=== PATIENT | female | born 1945 | race Caucasian/White ===

== ENCOUNTER 2017-02-24 18:42 | Emergency (ER) | payer OTHER, MEDICAID ==
[~2017-02-24] VITALS: Ht 154.9 cm; Wt 90.7 kg
[~2017-02-24 18:42] MED LIST: ASPI81TA45 PO; COUM7.5T PO; CRES10TA32 PO; JANU50TA4 PO; LOSA25TA8 PO; TYLE325T5 PO; ULTR37.52 PO
[2017-02-24] MEDS ORDERED: GABA-282 PO (18:53)
[2017-02-24] MEDS ORDERED: ELIQ5TAB PO (18:53)
[2017-02-24] MEDS ORDERED: PREG50CA PO (18:53)
[2017-02-24] MEDS ORDERED: ACETAMINOPHEN TAB 650MG DOSE (2X325MG) PO ONE (19:15)
[2017-02-24] MEDS ORDERED: NORCOTAB PO (20:26)
[2017-02-24] MEDS ORDERED: NORCO 5/325MG TABLET (BULK FOR ED) PO ONE (20:30)
[2017-02-24 20:33] VITALS: BP 183/85
--- NOTE | 2017-02-25 07:44 | REP ---
Clinical: Trauma. Technique: Frontal view of the chest with multiple views of the left hemithorax. Findings: Frontal view of the chest demonstrates no acute cardiopulmonary process. Multiple views of the left hemithorax demonstrates no obvious acute rib fracture or pathology. Impression: No definite acute rib fracture. No acute cardiopulmonary process. Signed by Chuy Locke MD 02/25/2017 07:36 A
--- NOTE | 2017-02-25 07:50 | REP ---
Clinical: Trauma. Technique: AP, lateral, bilateral oblique views of the left hand. Findings: Evaluation is significantly limited by age-related osteopenia and arthritic degenerative changes primarily involving the wrist and associated carpometacarpal joints. Soft tissue swelling at the wrist is appreciated and there is evidence for an acute fracture involving the radial styloid process. Fracture is most evident on image 3 of 4. Other more subtle acute injuries cannot be excluded. Impression: Fracture of the distal radius involving the radial styloid process with overlying soft tissue swelling. Further evaluation is limited due to advanced osteopenia and osteoarthritic degenerative changes. Signed by Chuy Locke MD 02/25/2017 07:41 A
--- NOTE | 2017-02-25 07:52 | REP ---
Clinical: Trauma. Technique: AP, lateral, bilateral oblique views of the left wrist. Findings: Soft tissue swelling surrounding the wrist is appreciated and evaluation for subtle trauma is limited due to extensive osteopenia and osteoarthritic degenerative changes. There is a fracture along the anterolateral margin of the distal radius extending to the radial styloid process which is best identified on image 3 of 4. Possible nondisplaced fracture involving the scaphoid bone cannot be excluded. Impression: Soft-tissue swelling. Fracture involving the anterolateral aspect of the distal radius extending to the radial styloid process best identified on image 3 of 4. Possible nondisplaced scaphoid fracture. Further evaluation is limited by osteopenia and arthritic changes. Signed by Chuy Locke MD 02/25/2017 07:44 A
== END 2017-02-24 20:37 | disposition home or self-care (01) ==
LOC: M ED 19:24
DX: S52.515A Nondisplaced fracture of left radial styloid process, initial encounter for closed fracture (principal); S20.219A Contusion of unspecified front wall of thorax, initial encounter; W01.198A Fall on same level from slipping, tripping and stumbling with subsequent striking against other object, initial encounter; Y92.410 Unspecified street and highway as the place of occurrence of the external cause; Y93.01 Activity, walking, marching and hiking; Y99.9 Unspecified external cause status

== ENCOUNTER → 2017-07-18 | Outpatient (CLI) | payer OTHER, MEDICAID ==
[~2017-07-18] MED LIST changes: +ELIQ5TAB PO; +GABA-282 PO; +NORCOTAB PO; +PREG50CA PO; +PROHANCE 279.3MG/ML 5ML VIAL (A9576) As Ordered ONE; -ULTR37.52 PO; +ULTR37.54 PO
--- NOTE | 2017-07-18 16:41 | REP ---
MR CERVICAL SPINE WITHOUT AND WITH CONTRAST: HISTORY: Neck pain. CONTRAST: ProHance 9 mL. A disc bulge and small right paracentral disc protrusion with associated osteophyte formation are present at the C2-3 level. There is moderate effacement of the thecal sac without spinal cord compression. Bilateral uncinate process and facet hypertrophy are present. These findings produce moderate narrowing of the C2 neural foramina. A disc bugle with associated osteophyte formation is present at the C3-4 level. There are 2 mm of retrolisthesis of C3 on C4. There is moderate spinal cord compression. Bilateral uncinate process and right facet hypertrophy are present. These findings produce severe and moderate narrowing of the right and left C3 neural foramina respectively. The patient is status post C4-5 anterior spinal fusion. Bone graft material is present. Posterior osteophytes are present at the C4-5 level. There is minimal effacement of the thecal sac without spinal cord compression. Bilateral uncinate process and facet hypertrophy are present. These findings produce mild and moderate narrowing of the right and left C4 neural foramina respectively. A disc bulge with associated osteophyte formation is present at the C5-6 level. There is moderate spinal cord compression. Bilateral uncinate process hypertrophy is present. This produces severe narrowing of the C5 neural foramina. A disc bulge with associated osteophyte formation is present at the C6-7 level. There is mild effacement of the thecal sac without spinal cord compression. Bilateral uncinate process and facet hypertrophy are present. These findings produce severe narrowing of the C6 neural foramina. Bilateral facet and right uncinate process hypertrophy are present at the C7-T1 level. These findings produce moderate and mild narrowing of the right and left C7 neural foramina respectively. There is no other disc bulge or herniation. The remaining neural foramina are patent. Small focal areas of increased signal intensity on T2-weighted images are present in the spinal cord at the C3-4 level. The spinal cord is small in size. This represents myelomalacia. The C3-4, C5-6 and C6-7 intervertebral discs are decreased in height consistent with disc degeneration. Normal signal intensity is present in the cervical vertebral bodies. IMPRESSION: 1. The patient is status post C4-5 anterior spinal fusion. 2. There is cervical spondylosis at the C2-3 through C7-T1 levels most significant at the C3-4 and C5-6 levels where there is moderate spinal cord compression. 3. Cervical spinal cord myelomalacia. Signed by Josef Oliveros MD 07/18/2017 04:54 P
--- NOTE | 2017-07-18 17:04 | REP ---
MR LUMBAR SPINE WITHOUT AND WITH CONTRAST: HISTORY: Back pain. CONTRAST: ProHance 9 mL. Decreased signal intensity on T2-weighted images is present in the lumbar intervertebral discs. The discs are decreased in height. These findings are consistent with disc degeneration. Disc bulges are present at T11-12 and T12-L1 levels. There is at least mild effacement of the thecal sac without spinal cord compression. The neural foramina are patent on the sagittal images. A diffuse disc bulge is present at the L1-2 level. There is hypertrophy of the ligamenta flava and posterior articulating facets. These findings produce minimal central canal stenosis. The L1 nerves exit the neural foramina without compression. A diffuse disc bulge is present at the L2-3 level. There is hypertrophy of the ligamenta flava and posterior articulating facets. These findings produce severe central canal stenosis. There is compression of the L2 nerves in the neural foramina. A diffuse disc bulge is present at the L3-4 level. There is hypertrophy of the ligamenta flava and posterior articulating facets. These findings produce minimal central canal stenosis. There is compression of the left L2 nerve in the neural foramen. The right L2 nerve exits the neural foramen without compression. A diffuse disc bulge is present at the L4-5 level. There is hypertrophy of the ligamenta flava and posterior articulating facets. There are 4 mm of retrolisthesis of L4 on 5. These findings produce severe central canal stenosis. There is compression of the L4 nerves in the neural foramina. A diffuse disc bulge and small central disc protrusion are present at the L5-S1 level. There is hypertrophy of the ligamenta flava and posterior articulating facets. These findings produce moderate central canal stenosis. There is compression of the L5 nerves in the neural foramina. The conus medullaris is normal in appearance terminating at the level of the T12-L1 intervertebral disc. Increased signal intensity on T2-weighted images is present in the end plates of the L2 and 3 vertebral bodies. There is minimal heterogenous enhancement with contrast. There is minimal enhancement adjacent to the L2-3 facets. This represents degenerative change. IMPRESSION: 1. Minimal central canal stenosis at the L1-2 and L3-4 levels secondary to disc bulge, ligamentous, and facet hypertrophy. 2. Severe central canal stenosis at the L2-3 level secondary to disc bulge, ligamentous and facet hypertrophy. 3. Severe central canal stenosis at the L4-5 level secondary to disc bulge, ligamentous, and facet hypertrophy and retrolisthesis. 4. Moderate central canal stenosis at the L5-S1 level secondary to disc bulge, disc protrusion, ligamentous, and facet hypertrophy. Signed by Josef Oliveros MD 07/18/2017 05:11 P
== END ==
LOC: M RAD 12:33
PROVIDERS: ATTEND Physician Assistant
DX: M54.5 Low back pain (principal); M54.2 Cervicalgia
CPT/HCPCS: 72156; 72158; A9576

== ENCOUNTER 2018-01-01 15:15 | Inpatient (IN) | payer OTHER, MEDICAID ==
[~2018-01-01 15:15] MED LIST changes: -ASPI81TA45 PO; +BISACODYL 10 MG SUPP PR; +BISACODYL 5 MG TAB PO; -COUM7.5T PO; -CRES10TA32 PO; +DEXTROSE 50% 50 ML SYRINGE IV; -ELIQ5TAB PO; -GABA-282 PO; +GLUCAGON FOR INJ 1 MG VIAL (J1610) SC; +GLUCOSE 4 GM CHEW TABLET PO; -JANU50TA4 PO; -LOSA25TA8 PO; -NORCOTAB PO; +ONDANSETRON 4 MG TAB (S0181) PO; -PREG50CA PO; -PROHANCE 279.3MG/ML 5ML VIAL (A9576) As Ordered ONE; -TYLE325T5 PO; -ULTR37.54 PO
[2018-01-01 16:50] LABS: BEDSIDE GLUCOSE 160 MG/DL (83-110)
[2018-01-01] MEDS: HumaLOG INSULIN (NovoLOG) PER UNIT SC ×2 (17:25→21:00)
[2018-01-01] MEDS: metFORMIN (GLUCOPHAGE) 500 MG TAB PO (17:25)
[2018-01-01] MEDS: ACETAMINOPHEN TAB 650MG DOSE (2X325MG) PO (18:28)
[2018-01-01] MEDS: PREGABALIN 50 MG CAP (LYRICA) PO (20:19)
[2018-01-01] MEDS: GABAPENTIN 300 MG CAP PO (20:19)
[2018-01-01] MEDS: SITagliptin 50 MG TAB (JANUVIA) PO (20:19)
[2018-01-01] MEDS: APIXABAN 2.5 MG TAB (ELIQUIS) PO (20:19)
[2018-01-01] MEDS: NORCO, ANEXSIA 5/325MG TABLET (HYDROcodone/ACETAMINOPHEN) PO (20:19)
[2018-01-01] MEDS: DOCUSATE SODIUM 100 MG CAP PO (21:00)
[2018-01-01 21:06] LABS: BEDSIDE GLUCOSE 232 MG/DL (83-110)
[2018-01-02] MEDS: ACETAMINOPHEN TAB 650MG DOSE (2X325MG) PO (05:12)
[2018-01-02 06:50] LABS: BASO % 0.1 % (0.0-1.0); EOS # 0.3 10^3/uL (0.0-0.50); HEMATOCRIT 28.1 % (36.0-47.0); HEMOGLOBIN 9.2 g/dl (12.0-16.0); IMMATURE GRANULOCYTE % 0.3 % (0-3.0); LYMPH # 1.7 10^3/uL (1.5-4.5); LYMPH % 18.3 % (24.0-44.0); MEAN CORPUSCULAR HEMOGLOBIN 31.5 pg (27.0-33.0); MEAN CORPUSCULAR HGB CONC 32.7 g/dl (32.0-36.5); MEAN CORPUSCULAR VOLUME 96.2 fl (80.0-96.0); MONO # 0.9 10^3/uL (0.0-0.8); MONO % 9.4 % (0.0-5.0); NEUTROPHILS # 6.4 10^3/uL (1.8-7.7); NEUTROPHILS % 68.9 % (36.0-66.0); PLATELET COUNT, AUTOMATED 268 10^3/uL (150-450); RED BLOOD COUNT 2.92 10^6/uL (4.00-5.40); RED CELL DISTRIBUTION WIDTH 12.5 % (11.5-14.5); WHITE BLOOD COUNT 9.3 10^3/uL (4.0-10.0)
[2018-01-02 07:17] LABS: ALBUMIN 2.6 GM/DL (3.2-5.2); ALBUMIN/GLOBULIN RATIO 0.59 (1.00-1.93); ALKALINE PHOSPHATASE 117 U/L (45-117); ALT/SGPT 32 U/L (12-78); ANION GAP 7 MEQ/L (8-16); AST/SGOT 33 U/L (7-37); BILIRUBIN,TOTAL 0.6 MG/DL (0.2-1.0); BLOOD UREA NITROGEN 18 MG/DL (7-18); CALCIUM LEVEL 8.9 MG/DL (8.8-10.2); CARBON DIOXIDE LEVEL 27 MEQ/L (21-32); CHLORIDE LEVEL 103 MEQ/L (98-107); CREATININE FOR GFR 0.89 MG/DL (0.55-1.30); GLOMERULAR FILTRATION RATE > 60.0 (>39); GLUCOSE, FASTING 163 MG/DL (70-100); POTASSIUM SERUM 4.1 MEQ/L (3.5-5.1); SODIUM LEVEL 137 MEQ/L (136-145)
[2018-01-02] MEDS: SITagliptin 50 MG TAB (JANUVIA) PO ×2 (08:33→20:58)
[2018-01-02] MEDS: GABAPENTIN 300 MG CAP PO ×2 (08:33→20:58)
[2018-01-02] MEDS: HumaLOG INSULIN (NovoLOG) PER UNIT SC ×4 (08:33→20:59)
[2018-01-02] MEDS: PREGABALIN 50 MG CAP (LYRICA) PO ×2 (08:33→20:58)
[2018-01-02] MEDS: ROSUVASTATIN 10 MG TAB (CRESTOR) PO (08:33)
[2018-01-02] MEDS: MULTIVITAMINS/MINERALS THERAP 1 TAB PO (08:33)
[2018-01-02] MEDS: metFORMIN (GLUCOPHAGE) 500 MG TAB PO ×2 (08:34→17:59)
[2018-01-02] MEDS: LOSARTAN 25 MG TAB PO ×2 (08:34→20:59)
[2018-01-02] MEDS: DOCUSATE SODIUM 100 MG CAP PO ×2 (08:34→20:58)
[2018-01-02] MEDS: MIRALAX *UNIT DOSE* 17GM PACKET PO (08:34)
[2018-01-02] MEDS: APIXABAN 2.5 MG TAB (ELIQUIS) PO ×2 (08:34→20:59)
[2018-01-02] MEDS: NORCO, ANEXSIA 5/325MG TABLET (HYDROcodone/ACETAMINOPHEN) PO ×2 (11:15→17:59)
[2018-01-02 11:57] LABS: BEDSIDE GLUCOSE 122 MG/DL (83-110)
[2018-01-02 17:20] LABS: BEDSIDE GLUCOSE 165 MG/DL (83-110)
[2018-01-02 20:58] LABS: BEDSIDE GLUCOSE 201 MG/DL (83-110)
[2018-01-03] MEDS: NORCO, ANEXSIA 5/325MG TABLET (HYDROcodone/ACETAMINOPHEN) PO ×3 (02:00→21:41)
[2018-01-03 06:24] LABS: BEDSIDE GLUCOSE 169 MG/DL (83-110)
[2018-01-03] MEDS: MIRALAX *UNIT DOSE* 17GM PACKET PO (08:19)
[2018-01-03] MEDS: HumaLOG INSULIN (NovoLOG) PER UNIT SC ×4 (08:19→20:06)
[2018-01-03] MEDS: MULTIVITAMINS/MINERALS THERAP 1 TAB PO (08:19)
[2018-01-03] MEDS: GABAPENTIN 300 MG CAP PO ×2 (08:19→20:06)
[2018-01-03] MEDS: PREGABALIN 50 MG CAP (LYRICA) PO ×2 (08:19→20:06)
[2018-01-03] MEDS: SITagliptin 50 MG TAB (JANUVIA) PO ×2 (08:19→20:05)
[2018-01-03] MEDS: LOSARTAN 25 MG TAB PO ×2 (08:19→20:05)
[2018-01-03] MEDS: metFORMIN (GLUCOPHAGE) 500 MG TAB PO ×2 (08:19→17:47)
[2018-01-03] MEDS: APIXABAN 2.5 MG TAB (ELIQUIS) PO ×2 (08:19→20:05)
[2018-01-03] MEDS: ROSUVASTATIN 10 MG TAB (CRESTOR) PO (08:19)
[2018-01-03] MEDS: DOCUSATE SODIUM 100 MG CAP PO ×2 (08:20→20:08)
[2018-01-03] MEDS: glipiZIDE (GLUCOTROL) 5 MG TAB PO (10:28)
[2018-01-03 12:10] LABS: BEDSIDE GLUCOSE 171 MG/DL (83-110)
[2018-01-03 16:24] LABS: BEDSIDE GLUCOSE 72 MG/DL (83-110)
[2018-01-03 20:17] LABS: BEDSIDE GLUCOSE 118 MG/DL (83-110)
[2018-01-04] MEDS: NORCO, ANEXSIA 5/325MG TABLET (HYDROcodone/ACETAMINOPHEN) PO ×3 (06:26→20:34)
[2018-01-04 06:50] LABS: BEDSIDE GLUCOSE 167 MG/DL (83-110)
[2018-01-04] MEDS: DOCUSATE SODIUM 100 MG CAP PO (07:04)
[2018-01-04] MEDS: MIRALAX *UNIT DOSE* 17GM PACKET PO (07:04)
[2018-01-04] MEDS: PREGABALIN 50 MG CAP (LYRICA) PO ×2 (08:13→20:32)
[2018-01-04] MEDS: SITagliptin 50 MG TAB (JANUVIA) PO ×2 (08:13→20:33)
[2018-01-04] MEDS: APIXABAN 2.5 MG TAB (ELIQUIS) PO ×2 (08:13→20:33)
[2018-01-04] MEDS: ROSUVASTATIN 10 MG TAB (CRESTOR) PO (08:13)
[2018-01-04] MEDS: HumaLOG INSULIN (NovoLOG) PER UNIT SC ×4 (08:13→20:34)
[2018-01-04] MEDS: GABAPENTIN 300 MG CAP PO ×2 (08:13→20:34)
[2018-01-04] MEDS: glipiZIDE (GLUCOTROL) 5 MG TAB PO (08:14)
[2018-01-04] MEDS: LOSARTAN 25 MG TAB PO ×2 (08:14→20:33)
[2018-01-04] MEDS: metFORMIN (GLUCOPHAGE) 500 MG TAB PO ×2 (08:14→17:47)
[2018-01-04] MEDS: MULTIVITAMINS/MINERALS THERAP 1 TAB PO (08:14)
[2018-01-04 12:19] LABS: BEDSIDE GLUCOSE 91 MG/DL (83-110)
[2018-01-04] MEDS: METAMUCIL (PSYLLIUM) PACKET PO (12:19)
[2018-01-04 16:41] LABS: BEDSIDE GLUCOSE 92 MG/DL (83-110)
[2018-01-04 20:21] LABS: BEDSIDE GLUCOSE 118 MG/DL (83-110)
[2018-01-05 05:53] LABS: BEDSIDE GLUCOSE 129 MG/DL (83-110)
[2018-01-05] MEDS: GABAPENTIN 300 MG CAP PO ×2 (08:55→21:04)
[2018-01-05] MEDS: ROSUVASTATIN 10 MG TAB (CRESTOR) PO (08:55)
[2018-01-05] MEDS: metFORMIN (GLUCOPHAGE) 500 MG TAB PO ×2 (08:55→17:44)
[2018-01-05] MEDS: SITagliptin 50 MG TAB (JANUVIA) PO ×2 (08:55→21:04)
[2018-01-05] MEDS: MULTIVITAMINS/MINERALS THERAP 1 TAB PO (08:55)
[2018-01-05] MEDS: glipiZIDE (GLUCOTROL) 5 MG TAB PO (08:55)
[2018-01-05] MEDS: APIXABAN 2.5 MG TAB (ELIQUIS) PO ×2 (08:56→21:04)
[2018-01-05] MEDS: PREGABALIN 50 MG CAP (LYRICA) PO ×2 (08:56→21:04)
[2018-01-05] MEDS: ACETAMINOPHEN TAB 650MG DOSE (2X325MG) PO ×2 (08:56→17:44)
[2018-01-05] MEDS: LOSARTAN 50 MG TAB PO (08:57)
[2018-01-05] MEDS: HumaLOG INSULIN (NovoLOG) PER UNIT SC ×4 (08:57→21:00)
[2018-01-05] MEDS: METAMUCIL (PSYLLIUM) PACKET PO (08:57)
[2018-01-05 11:33] LABS: BEDSIDE GLUCOSE 166 MG/DL (83-110)
[2018-01-05] MEDS: DICLOFENAC EPOLAMINE 1.3 % PATCH TOP ×2 (12:11→21:08)
[2018-01-05 16:38] LABS: BEDSIDE GLUCOSE 103 MG/DL (83-110)
[2018-01-05 20:54] LABS: BEDSIDE GLUCOSE 190 MG/DL (83-110)
[2018-01-05] MEDS: LOSARTAN 25 MG TAB PO (21:07)
[2018-01-05] MEDS: NORCO, ANEXSIA 5/325MG TABLET (HYDROcodone/ACETAMINOPHEN) PO (21:11)
[2018-01-06] MEDS: ACETAMINOPHEN TAB 650MG DOSE (2X325MG) PO (00:47)
[2018-01-06 06:51] LABS: BEDSIDE GLUCOSE 135 MG/DL (83-110)
[2018-01-06] MEDS: GABAPENTIN 300 MG CAP PO ×2 (08:06→20:05)
[2018-01-06] MEDS: SITagliptin 50 MG TAB (JANUVIA) PO ×2 (08:06→20:05)
[2018-01-06] MEDS: ROSUVASTATIN 10 MG TAB (CRESTOR) PO (08:06)
[2018-01-06] MEDS: LOSARTAN 50 MG TAB PO (08:07)
[2018-01-06] MEDS: PREGABALIN 50 MG CAP (LYRICA) PO ×2 (08:07→20:05)
[2018-01-06] MEDS: glipiZIDE (GLUCOTROL) 5 MG TAB PO (08:07)
[2018-01-06] MEDS: HumaLOG INSULIN (NovoLOG) PER UNIT SC ×4 (08:07→21:00)
[2018-01-06] MEDS: MULTIVITAMINS/MINERALS THERAP 1 TAB PO (08:07)
[2018-01-06] MEDS: metFORMIN (GLUCOPHAGE) 500 MG TAB PO ×2 (08:07→17:46)
[2018-01-06] MEDS: METAMUCIL (PSYLLIUM) PACKET PO (08:08)
[2018-01-06] MEDS: APIXABAN 2.5 MG TAB (ELIQUIS) PO ×2 (08:08→20:05)
[2018-01-06] MEDS: DICLOFENAC EPOLAMINE 1.3 % PATCH TOP ×2 (08:08→20:06)
[2018-01-06 12:32] LABS: BEDSIDE GLUCOSE 68 MG/DL (83-110)
[2018-01-06] MEDS: NORCO, ANEXSIA 5/325MG TABLET (HYDROcodone/ACETAMINOPHEN) PO ×2 (13:06→20:05)
[2018-01-06 16:38] LABS: BEDSIDE GLUCOSE 93 MG/DL (83-110)
[2018-01-06] MEDS: LOSARTAN 25 MG TAB PO (20:05)
[2018-01-06 20:36] LABS: BEDSIDE GLUCOSE 141 MG/DL (83-110)
[2018-01-07] MEDS: NORCO, ANEXSIA 5/325MG TABLET (HYDROcodone/ACETAMINOPHEN) PO ×4 (02:13→22:40)
[2018-01-07 06:58] LABS: BEDSIDE GLUCOSE 118 MG/DL (83-110)
[2018-01-07] MEDS: glipiZIDE (GLUCOTROL) 5 MG TAB PO (07:43)
[2018-01-07] MEDS: HumaLOG INSULIN (NovoLOG) PER UNIT SC ×4 (07:43→20:14)
[2018-01-07] MEDS: ROSUVASTATIN 10 MG TAB (CRESTOR) PO (08:15)
[2018-01-07] MEDS: GABAPENTIN 300 MG CAP PO ×2 (08:16→20:14)
[2018-01-07] MEDS: SITagliptin 50 MG TAB (JANUVIA) PO ×2 (08:16→20:14)
[2018-01-07] MEDS: metFORMIN (GLUCOPHAGE) 500 MG TAB PO ×2 (08:16→17:58)
[2018-01-07] MEDS: LOSARTAN 50 MG TAB PO (08:16)
[2018-01-07] MEDS: PREGABALIN 50 MG CAP (LYRICA) PO ×2 (08:16→20:14)
[2018-01-07] MEDS: MULTIVITAMINS/MINERALS THERAP 1 TAB PO (08:16)
[2018-01-07] MEDS: APIXABAN 2.5 MG TAB (ELIQUIS) PO ×2 (08:16→20:14)
[2018-01-07] MEDS: METAMUCIL (PSYLLIUM) PACKET PO (08:17)
[2018-01-07] MEDS: DICLOFENAC EPOLAMINE 1.3 % PATCH TOP ×2 (08:17→20:16)
[2018-01-07 11:27] LABS: BEDSIDE GLUCOSE 133 MG/DL (83-110)
[2018-01-07 12:53] LABS: BEDSIDE GLUCOSE 66 MG/DL (83-110)
[2018-01-07 13:02] LABS: BEDSIDE GLUCOSE 86 MG/DL (83-110)
[2018-01-07 17:23] LABS: BEDSIDE GLUCOSE 95 MG/DL (83-110)
[2018-01-07 20:05] LABS: BEDSIDE GLUCOSE 201 MG/DL (83-110)
[2018-01-07] MEDS: LOSARTAN 25 MG TAB PO (20:13)
[2018-01-07] MEDS: ACETAMINOPHEN TAB 650MG DOSE (2X325MG) PO (20:17)
[2018-01-08] MEDS: NORCO, ANEXSIA 5/325MG TABLET (HYDROcodone/ACETAMINOPHEN) PO (04:19)
[2018-01-08 06:33] LABS: BEDSIDE GLUCOSE 147 MG/DL (83-110)
[2018-01-08] MEDS: MULTIVITAMINS/MINERALS THERAP 1 TAB PO (08:15)
[2018-01-08] MEDS: LOSARTAN 50 MG TAB PO (08:16)
[2018-01-08] MEDS: PREGABALIN 50 MG CAP (LYRICA) PO (08:16)
[2018-01-08] MEDS: SITagliptin 50 MG TAB (JANUVIA) PO (08:16)
[2018-01-08] MEDS: metFORMIN (GLUCOPHAGE) 500 MG TAB PO (08:16)
[2018-01-08] MEDS: HumaLOG INSULIN (NovoLOG) PER UNIT SC (08:16)
[2018-01-08] MEDS: glipiZIDE (GLUCOTROL) 5 MG TAB PO (08:17)
[2018-01-08] MEDS: GABAPENTIN 300 MG CAP PO (08:17)
[2018-01-08] MEDS: METAMUCIL (PSYLLIUM) PACKET PO (08:17)
[2018-01-08] MEDS: ROSUVASTATIN 10 MG TAB (CRESTOR) PO (08:17)
[2018-01-08] MEDS: APIXABAN 2.5 MG TAB (ELIQUIS) PO (08:17)
== END 2018-01-08 11:00 | disposition home health service (06) | DRG 53 ==
LOC: M PM&R 15:15
PROVIDERS: Physical Medicine & Rehabilitation
DX: G82.54 Quadriplegia, C5-C7 incomplete (principal); E11.9 Type 2 diabetes mellitus without complications; I10 Essential (primary) hypertension; E66.01 Morbid (severe) obesity due to excess calories; M19.90 Unspecified osteoarthritis, unspecified site; I45.10 Unspecified right bundle-branch block; E78.5 Hyperlipidemia, unspecified; Z96.641 Presence of right artificial hip joint; Z79.01 Long term (current) use of anticoagulants; Z79.899 Other long term (current) drug therapy; Z79.4 Long term (current) use of insulin; Z86.73 Personal history of transient ischemic attack (TIA), and cerebral infarction without residual deficits; Z98.49 Cataract extraction status, unspecified eye; Z87.891 Personal history of nicotine dependence; Z98.890 Other specified postprocedural states

== ENCOUNTER 2018-03-07 06:50 | Day surgery (SDC) | payer OTHER, MEDICAID ==
[~2018-03-07 06:50] MED LIST changes: -BISACODYL 10 MG SUPP PR; -BISACODYL 5 MG TAB PO; -DEXTROSE 50% 50 ML SYRINGE IV; -GLUCAGON FOR INJ 1 MG VIAL (J1610) SC; -GLUCOSE 4 GM CHEW TABLET PO; -ONDANSETRON 4 MG TAB (S0181) PO; +SLF 3 ML SYR IV
[2018-03-07] MEDS ORDERED: fentaNYL 100 MCG/2 ML INJECTION (J3010) As Ordered ×2 (06:58)
[2018-03-07] MEDS: LIDOCAINE 3.5 % 1ML OPHTH TOPICAL GEL OU ×2 (07:18)
[2018-03-07 07:27] LABS: BEDSIDE GLUCOSE 187 MG/DL (83-110)
[2018-03-07] MEDS ORDERED: PROPOFOL 200 MG/20 ML VIAL As Ordered ×2 (08:55)
[2018-03-07] MEDS: LIDOCAINE 2% W/EPIN INJ 20ML **PRES FREE As Ordered ×2 (09:08)
[2018-03-07] MEDS: TOBRADEX OPHTH OINT 3.5 GM As Ordered ×2 (09:09)
[2018-03-07] MEDS: POVIDONE-IODINE 5% OPHTH PREP SOL 30ML As Ordered ×2 (09:09)
== END 2018-03-07 10:12 | disposition home or self-care (01) ==
LOC: M SDC 06:50
DX: H02.005 Unspecified entropion of left lower eyelid (principal); I10 Essential (primary) hypertension; E78.00 Pure hypercholesterolemia, unspecified; E11.9 Type 2 diabetes mellitus without complications; Z86.73 Personal history of transient ischemic attack (TIA), and cerebral infarction without residual deficits; Z79.02 Long term (current) use of antithrombotics/antiplatelets; Z79.899 Other long term (current) drug therapy
CPT/HCPCS: 67914; 67924

== ENCOUNTER 2018-12-02 14:42 | Emergency (ER) | payer MEDICARE, MEDICAID ==
[~2018-12-02] VITALS: Ht 154.9 cm; Wt 100.9 kg
[~2018-12-02 14:42] MED LIST changes: +ASPI81TA45 PO; +COLA100C5 PO; +COUM7.5T PO; +CRES10TA32 PO; +ELIQ5TAB PO; +GABA-843 PO; +GLIP5TAB8 PO; +HYDR-3713 PO; +INSUHUMDS SC; +IRBE75TA5 PO; +JANU50TA22 PO; +JANU50TA4 PO; +LOSA25TA14 PO; +LOSA50TA88 PO; +METAPKT PO; +MIRA33504 PO; +NORCOTAB PO; +ONDA4TAB5 PO; +PREG50CA PO; +SENN1TAB10 PO; -SLF 3 ML SYR IV; +TYLE325T5 PO; +ULTR37.54 PO
[2018-12-02] MEDS ORDERED: TIZANIDINE PO (15:00)
[2018-12-02] MEDS ORDERED: ROPI3TAB3 (15:00)
[2018-12-02 15:12] LABS: BASO # 0.1 10^3/uL (0.0-0.2); BASO % 0.6 % (0.0-1.0); EOS # 0.2 10^3/uL (0.0-0.50); EOS % 2.5 % (0.0-3.0); HEMATOCRIT 33.7 % (36.0-47.0); HEMOGLOBIN 10.1 g/dl (12.0-15.5); LYMPH # 2.9 10^3/uL (1.5-4.5); LYMPH % 33.8 % (24.0-44.0); MEAN CORPUSCULAR HEMOGLOBIN 24.9 pg (27.0-33.0); MONO # 0.5 10^3/uL (0.0-0.8); MONO % 5.2 % (0.0-5.0); NEUTROPHILS % 57.6 % (36.0-66.0); PLATELET COUNT, AUTOMATED 297 10^3/uL (150-450); RED BLOOD COUNT 4.06 10^6/uL (4.00-5.40); WHITE BLOOD COUNT 8.6 10^3/uL (4.0-10.0)
[2018-12-02] MEDS ORDERED: NS 1,000 ML IV SCH (15:15)
[2018-12-02 15:23] LABS: INR 1.06; PROTHROMBIN TIME 13.9 SECONDS (12.1-14.4)
[2018-12-02 15:47] LABS: BLOOD UREA NITROGEN 16 MG/DL (7-18); CALCIUM LEVEL 8.8 MG/DL (8.8-10.2); CARBON DIOXIDE LEVEL 25 MEQ/L (21-32); CHLORIDE LEVEL 106 MEQ/L (98-107); CPK CREATINE PHOSPHOKINASE 97 U/L (26-192); CREATININE FOR GFR 0.92 MG/DL (0.55-1.30); GLOMERULAR FILTRATION RATE > 60.0 (>39); GLUCOSE, FASTING 137 MG/DL (70-100); MB/CK RELATIVE INDEX 1.65 (< OR =4); POTASSIUM SERUM 4.4 MEQ/L (3.5-5.1); SODIUM LEVEL 139 MEQ/L (136-145); TROPONIN I 0.02 NG/ML (< 0.10)
--- NOTE | 2018-12-02 15:50 | REP ---
CT of the brain without IV contrast: Comparison is nine 06/04/2016. There is no hemorrhage, edema, mass effect or midline shift. There is an old right temporal parietal infarct. There is an old infarct in the right occipital lobe medially, unchanged. The cortical stripe is otherwise unremarkable. There is no edema, mass effect or midline shift. The visualized paranasal sinuses and mastoid air cells are clear. Impression: There is no hemorrhage, acute infarct or mass. There are old infarcts in the right temporal parietal zone and medially in the right occipital lobe. Electronically Signed by Bo Alves MD 12/02/2018 03:42 P
--- NOTE | 2018-12-02 15:53 | REP ---
PA and lateral chest: Comparison 06/26/2016. The lung sloan are clear. The cardiac size is normal. The balaji, mediastinum, and skeletal structures are unremarkable. Impression: Negative PA and lateral chest. There is no interval change. Electronically Signed by Bo Alves MD 12/02/2018 03:44 P
[2018-12-02] MEDS ORDERED: LABETALOL HCL 100 MG/20 ML VIAL IV STA (15:59)
[2018-12-02 16:18] VITALS: BP 154/70
[2018-12-02] MEDS ORDERED: ZOFR4TAB16 PO (16:52)
[2018-12-02 17:15] VITALS: BP 152/69
--- NOTE | 2018-12-02 17:59 | ECGEPIP ---
Stationary ECG Study [facility] - ED Test Date: 2018-12-02 Pat Name: DAGOBERTO HURLEY Department: Room: - Gender: F Network Strategist: sydnie : 1945 Requested By: MARIO FIGUEROA Order Number: [id number] Reading MD: Elizabeth Silverio Measurements Intervals [place] Rate: 96 P: NC: 0 QRS: -57 QRSD: 156 T: 37 QT: 394 QTc: 499 Interpretive Statements SINUS TACHYCARDIA WITH PREMATURE VENTRICULAR COMPLEXES RIGHT BUNDLE BRANCH BLOCK LEFT ANTERIOR FASCICULAR BLOCK INCREASED RATE 06/26/16 Electronically Signed On 12-02-2018 17:59:13 EST by Elizabeth Silverio
== END 2018-12-02 17:29 | disposition home or self-care (01) ==
LOC: EDBD 14:42 → M ED 14:42
DX: I10 Essential (primary) hypertension (principal); B34.9 Viral infection, unspecified; E11.9 Type 2 diabetes mellitus without complications; G89.29 Other chronic pain; Z79.899 Other long term (current) drug therapy; Z79.84 Long term (current) use of oral hypoglycemic drugs; Z79.01 Long term (current) use of anticoagulants; F17.210 Nicotine dependence, cigarettes, uncomplicated

== ENCOUNTER 2019-04-04 10:55 | Emergency (ER) | payer MEDICARE, MEDICAID ==
[~2019-04-04] VITALS: Ht 154.9 cm; Wt 97.7 kg
[~2019-04-04 10:55] MED LIST changes: +CRES10TA PO; -CRES10TA32 PO; +HYDR-3715 PO; +KONS100P6 PO; -METAPKT PO; -NORCOTAB PO; +ROPI3TAB3; +TIZANIDINE PO; +ZOFR4TAB16 PO
[2019-04-04] MEDS ORDERED: DULO1CAP5 (11:08)
[2019-04-04] MEDS ORDERED: MORPHINE 2 MG/ML 1ML SYRINGE (J2270) IV PRN (11:30)
[2019-04-04] MEDS ORDERED: ONDANSETRON 4MG/2ML VIAL (J2405) IV ONE (11:30)
[2019-04-04 11:34] LABS: BASO # 0.1 10^3/uL (0.0-0.2); BASO % 0.8 % (0.0-1.0); EOS # 0.1 10^3/uL (0.0-0.50); EOS % 1.6 % (0.0-3.0); HEMATOCRIT 39.4 % (36.0-47.0); HEMOGLOBIN 12.5 g/dl (12.0-15.5); LYMPH # 2.4 10^3/uL (1.5-4.5); LYMPH % 31.5 % (24.0-44.0); MEAN CORPUSCULAR HEMOGLOBIN 27.9 pg (27.0-33.0); MEAN CORPUSCULAR HGB CONC 31.7 g/dl (32.0-36.5); MEAN CORPUSCULAR VOLUME 87.9 fl (80.0-96.0); MONO # 0.4 10^3/uL (0.0-0.8); MONO % 5.2 % (0.0-5.0); NEUTROPHILS # 4.6 10^3/uL (1.8-7.7); NEUTROPHILS % 60.8 % (36.0-66.0); PLATELET COUNT, AUTOMATED 320 10^3/uL (150-450); RED BLOOD COUNT 4.48 10^6/uL (4.00-5.40); WHITE BLOOD COUNT 7.6 10^3/uL (4.0-10.0)
--- NOTE | 2019-04-04 11:45 | REP ---
CT BRAIN WITHOUT CONTRAST: HISTORY: Headache. Comparison CT study of the brain is from December 02, 2018. Comparison is also made with July 05, [address] FINDINGS: Digital preliminary microsoft bi developer radiograph is unremarkable. The bony calvarium is intact. Visualized paranasal sinuses are clear. There is moderate vascular calcification in the distal carotid arteries bilaterally and in the distal vertebral arteries. There is no evidence of intracranial hemorrhage. There is however an old appearing infarct again noted in the right parietal lobe. There is some encephalomalacia in the right occipital lobe as well. These findings are unchanged from the most recent prior study of December 02, 2018. There is old lacunar infarct in the basal ganglia on the left also unchanged from most recent prior study. These infarcts were not apparent on June 28, 2016 prior study. Mild small vessel changes are present. No acute infarction is apparent. IMPRESSION: Diffuse atrophy and vascular calcification. 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 Old lacunar infarct left basal ganglia. No acute infarct, bleed, or mass seen. Electronically Signed by Juancarlos Hunter MD 04/04/2019 02:23 P
[2019-04-04 12:02] LABS: BLOOD UREA NITROGEN 18 MG/DL (7-18); CALCIUM LEVEL 8.6 MG/DL (8.8-10.2); CARBON DIOXIDE LEVEL 24 MEQ/L (21-32); CHLORIDE LEVEL 106 MEQ/L (98-107); CREATININE FOR GFR 0.93 MG/DL (0.55-1.30); GLOMERULAR FILTRATION RATE > 60.0 (>39); GLUCOSE, FASTING 163 MG/DL (70-100); POTASSIUM SERUM 4.2 MEQ/L (3.5-5.1); SODIUM LEVEL 136 MEQ/L (136-145)
[2019-04-04 13:10] LABS: ERYTHROCYTE SEDIMENTATION RATE 26 mm/hr (0-30)
[2019-04-04 13:16] VITALS: BP 150/90
== END 2019-04-04 13:18 | disposition home or self-care (01) ==
LOC: EDBD 10:55 → M ED 10:55
DX: R51 Headache (principal); E11.9 Type 2 diabetes mellitus without complications; I10 Essential (primary) hypertension; E78.5 Hyperlipidemia, unspecified; Z86.73 Personal history of transient ischemic attack (TIA), and cerebral infarction without residual deficits; Z79.899 Other long term (current) drug therapy; Z79.01 Long term (current) use of anticoagulants
CPT/HCPCS: 70450; 80048; 85025; 85652; 96374; 96375; 99284; J2270; J2405

== ENCOUNTER 2019-05-24 19:37 | Emergency (ER) | payer MEDICARE, MEDICAID ==
[~2019-05-24] VITALS: Ht 154.9 cm; Wt 97.7 kg
[~2019-05-24 19:37] MED LIST changes: +DULO1CAP5; +ONDA-83 PO; -ONDA4TAB5 PO
[2019-05-24] MEDS ORDERED: ONDANSETRON 4 MG ORAL DISINTEGRATING TAB (Q0162 PER 1MG) PO ONE ×2 (20:45→22:30)
[2019-05-24 20:51] LABS: BASO # 0.1 10^3/uL (0.0-0.2); BASO % 0.5 % (0.0-1.0); EOS # 0.1 10^3/uL (0.0-0.50); EOS % 1.2 % (0.0-3.0); HEMATOCRIT 38.3 % (36.0-47.0); HEMOGLOBIN 12.2 g/dl (12.0-15.5); LYMPH # 1.7 10^3/uL (1.5-4.5); LYMPH % 17.6 % (24.0-44.0); MEAN CORPUSCULAR HEMOGLOBIN 29.5 pg (27.0-33.0); MEAN CORPUSCULAR HGB CONC 31.9 g/dl (32.0-36.5); MEAN CORPUSCULAR VOLUME 92.7 fl (80.0-96.0); MONO # 0.5 10^3/uL (0.0-0.8); MONO % 5.5 % (0.0-5.0); NEUTROPHILS # 7.4 10^3/uL (1.8-7.7); NEUTROPHILS % 74.9 % (36.0-66.0); PLATELET COUNT, AUTOMATED 245 10^3/uL (150-450); RED BLOOD COUNT 4.13 10^6/uL (4.00-5.40); WHITE BLOOD COUNT 9.8 10^3/uL (4.0-10.0)
[2019-05-24 21:29] LABS: ALBUMIN 3.6 GM/DL (3.2-5.2); ALT/SGPT 16 U/L (12-78); AMYLASE 75 U/L (25-115); BILIRUBIN,DIRECT < 0.1 MG/DL (0.0-0.2); BILIRUBIN,TOTAL 0.2 MG/DL (0.2-1.0); BLOOD UREA NITROGEN 15 MG/DL (7-18); CALCIUM LEVEL 9.5 MG/DL (8.8-10.2); CARBON DIOXIDE LEVEL 26 MEQ/L (21-32); CHLORIDE LEVEL 105 MEQ/L (98-107); CREATININE FOR GFR 1.03 MG/DL (0.55-1.30); GLOMERULAR FILTRATION RATE 55.8 (>39); GLUCOSE, FASTING 147 MG/DL (70-100); LIPASE 189 U/L (73-393); POTASSIUM SERUM 4.3 MEQ/L (3.5-5.1); SODIUM LEVEL 141 MEQ/L (136-145); TOTAL PROTEIN 7.4 GM/DL (6.4-8.2)
[2019-05-24] MEDS ORDERED: ONDA4TAB6 PO (22:40)
[2019-05-24 22:46] VITALS: BP 153/71
== END 2019-05-24 23:04 | disposition home or self-care (01) ==
LOC: EDSEX 19:37 → EDBD 19:37 → M ED 20:45
DX: K52.9 Noninfective gastroenteritis and colitis, unspecified (principal); I10 Essential (primary) hypertension; E11.9 Type 2 diabetes mellitus without complications; Z79.899 Other long term (current) drug therapy; Z79.84 Long term (current) use of oral hypoglycemic drugs; Z79.01 Long term (current) use of anticoagulants
CPT/HCPCS: 36415; 80048; 80076; 82150; 83605; 83690; 85025; 93041; 99285; Q0162

== ENCOUNTER 2019-07-30 12:11 | Emergency (ER) | payer MEDICARE, MEDICAID ==
[~2019-07-30] VITALS: Ht 154.9 cm; Wt 93.2 kg
[~2019-07-30 12:11] MED LIST changes: -ONDA-83 PO; +ONDA4TAB5 PO; +ONDA4TAB6 PO
[2019-07-30] MEDS ORDERED: NORCO, ANEXSIA 5/325MG TABLET (HYDROcodone/ACETAMINOPHEN) PO ONE (13:45)
[2019-07-30] MEDS ORDERED: NORC1TAB7 PO (15:20)
[2019-07-30 15:27] VITALS: BP 147/86
--- NOTE | 2019-07-30 15:28 | REP ---
RIGHT KNEE, FOUR VIEW: Four views of the right knee performed. No acute fracture or dislocation is seen. There is severe lateral joint space narrowing with subchondral sclerosis and spurring. There is patellofemoral compartment narrowing with large superior patellar and femoral condyle spurring. There is a moderate joint effusion. Scattered calcifications in the joint I suspect represent chondrocalcinosis. There are vascular calcifications posteriorly. IMPRESSION: Significant degenerative changes. No acute fracture. Moderate joint effusion. Electronically Signed by Bo Odom MD 07/31/2019 12:26 P
--- NOTE | 2019-07-30 15:28 | REP ---
RIGHT ELBOW, FOUR VIEWS: Four views right elbow performed. No acute fracture or dislocation is seen. Calcific body is seen anterior to the joint, 8 mm in diameter. There is diffuse moderate spurring at the margins of the joint. There is no definite joint effusion. IMPRESSION: Degenerative changes. No evidence of acute fracture or dislocation. Electronically Signed by Bo Odom MD 07/31/2019 12:27 P
== END 2019-07-30 15:41 | disposition home or self-care (01) ==
LOC: M ED 12:11
DX: S50.01XA Contusion of right elbow, initial encounter (principal); W01.0XXA Fall on same level from slipping, tripping and stumbling without subsequent striking against object, initial encounter; Y92.009 Unspecified place in unspecified non-institutional (private) residence as the place of occurrence of the external cause; M25.461 Effusion, right knee; M25.721 Osteophyte, right elbow; M25.761 Osteophyte, right knee; E11.9 Type 2 diabetes mellitus without complications; I10 Essential (primary) hypertension; F17.200 Nicotine dependence, unspecified, uncomplicated; Z79.01 Long term (current) use of anticoagulants; Z79.84 Long term (current) use of oral hypoglycemic drugs; Z79.899 Other long term (current) drug therapy

== ENCOUNTER → 2019-08-28 | Outpatient (CLI) | payer MEDICARE, MEDICAID ==
[~2019-08-28] MED LIST changes: +NORC1TAB7 PO
--- NOTE | 2019-08-28 13:59 | REP ---
CT RIGHT ELBOW WITHOUT CONTRAST: Axial CT right elbow performed without the use of intravenous contrast. Sagittal and coronal reconstruction images are performed. There is no evidence of acute fracture or dislocation. There is moderate diffuse spurring at the margins of the joint with moderately severe joint space narrowing at the radiocapitellar joint. There is associated subchondral sclerosis on both sides of that joint. Oval calcific body is seen anterior and adjacent to the coronoid process measuring approximately 8 mm maximally. This is at the margin of the joint. There is a tiny calcific body at the anterior margin of the radiocapitellar joint measuring only about 2 mm in diameter. Two somewhat linear calcifications are seen at the posterior margin of the radiocapitellar joint. These measure approximately 6 x 3 mm and 5 x 2 mm. Another 2 mm calcific body is seen at the anterolateral margin of the radiocapitellar joint. There are mild calcifications of the biceps tendon at its insertion onto the proximal radius. IMPRESSION: Arthritic changes as above. Electronically Signed by Bo Odom MD 08/29/2019 11:22 A
== END ==
LOC: M RAD 10:42
PROVIDERS: ATTEND Physician Assistant Medical
DX: M25.521 Pain in right elbow (principal)

== ENCOUNTER 2019-10-05 13:02 | Emergency (ER) | payer MEDICARE, MEDICAID ==
[~2019-10-05] VITALS: Ht 154.9 cm; Wt 89.5 kg
[2019-10-05 13:02] VITALS: BP 138/64
[2019-10-05] MEDS ORDERED: AMLO5TAB6 (13:10)
[2019-10-05] MEDS ORDERED: MORPHINE 2 MG/ML 1ML VIAL (J2270) IV ONE (14:00)
[2019-10-05] MEDS ORDERED: ONDANSETRON 4MG/2ML VIAL (J2405) IV ONE (14:00)
[2019-10-05 14:14] LABS: BASO # 0.1 10^3/uL (0.0-0.2); BASO % 0.7 % (0.0-1.0); EOS # 0.2 10^3/uL (0.0-0.5); EOS % 1.9 % (0.0-3.0); HEMATOCRIT 40.6 % (36.0-47.0); HEMOGLOBIN 12.8 g/dl (12.0-15.5); LYMPH # 2.9 10^3/uL (1.5-5.0); LYMPH % 32.6 % (24.0-44.0); MEAN CORPUSCULAR HEMOGLOBIN 29.5 pg (27.0-33.0); MEAN CORPUSCULAR HGB CONC 31.5 g/dl (32.0-36.5); MEAN CORPUSCULAR VOLUME 93.5 fl (80.0-96.0); MONO # 0.4 10^3/uL (0.0-0.8); MONO % 4.8 % (0.0-5.0); NEUTROPHILS # 5.3 10^3/uL (1.5-8.5); NEUTROPHILS % 59.8 % (36.0-66.0); PLATELET COUNT, AUTOMATED 262 10^3/uL (150-450); RED BLOOD COUNT 4.34 10^6/uL (4.00-5.40); WHITE BLOOD COUNT 8.8 10^3/uL (4.0-10.0)
[2019-10-05] MEDS ORDERED: ISOVUE-370 76% 100ML VIAL (Q9967) As Ordered ONE (14:30)
--- NOTE | 2019-10-05 14:54 | REP ---
Clinical: Abdominal pain with nausea and vomiting. Technique: Axial contrast enhanced images from the lung bases to the pubic symphysis using 100 ml Isovue 370 intravenous contrast material with coronal and sagittal re-formations. Comparison: 04/27/2006. Findings: Lung bases are clear. Visualized heart and pericardium normal. Liver, spleen, pancreas, gallbladder, bilateral adrenal glands and kidneys are essentially normal. The enteric system is without obstruction or acute inflammatory process. Scattered sigmoid diverticula noted without obvious acute diverticulitis. Pelvis demonstrates relatively normal bladder and age-appropriate uterus/adnexa. No ascites. No free air. No adenopathy. Atherosclerotic changes to the aorta and vasculature without aneurysm or dissection. Musculoskeletal structures demonstrate degenerative changes without focal abnormality. Impression: 1. No acute abdominopelvic pathology appreciated. 2. No ascites, adenopathy, or focal inflammatory stranding. 3. Diverticulosis without acute diverticulitis. Electronically Signed by Chuy Locke MD 10/05/2019 02:46 P
--- NOTE | 2019-10-06 15:31 | ECGEPIP ---
[facility] - ED Test Date: 2019-10-05 Pat Name: DAGOBERTO HURLEY Department: Room: - Gender: Female [employer] Sander: : 1945 Requested By: KRUNAL FIGUEROA Order Number: [id number] Reading MD: Sim Forbes Measurements Intervals [place] Rate: 93 P: 64 PA: 190 QRS: -61 QRSD: 158 T: 57 QT: 403 QTc: 502 Interpretive Statements SINUS RHYTHM RIGHT BUNDLE BRANCH BLOCK LEFT ANTERIOR FASCICULAR BLOCK POSSIBLE ANTERIOR MYOCARDIAL INFARCTION, OF INDETERMINATE AGE SIMILAR TO 12/02/18 Electronically Signed on 10-06-2019 15:31:36 EST by Sim Forbes
== END 2019-10-05 17:30 | disposition home or self-care (01) ==
LOC: M ED 13:02
DX: R11.2 Nausea with vomiting, unspecified (principal); R19.7 Diarrhea, unspecified; R10.9 Unspecified abdominal pain; E10.9 Type 1 diabetes mellitus without complications; I10 Essential (primary) hypertension; Z79.899 Other long term (current) drug therapy; Z79.01 Long term (current) use of anticoagulants; F17.210 Nicotine dependence, cigarettes, uncomplicated
CPT/HCPCS: 74177; 80047; 85025; 93005; 96374; 96375; 99284; J2270; J2405; Q9967

== ENCOUNTER 2019-11-07 21:23 | Inpatient (IN) | payer MEDICARE, MEDICAID ==
[~2019-11-07] VITALS: Ht 167.6 cm; Wt 92.4 kg
[~2019-11-07 21:23] MED LIST changes: +AMLO5TAB6; +ONDA-83 PO; -ONDA4TAB5 PO
[2019-11-07 22:28] LABS: BASO % 0.5 % (0.0-1.0); EOS # 0.2 10^3/uL (0.0-0.5); EOS % 2.7 % (0.0-3.0); HEMATOCRIT 39.4 % (36.0-47.0); HEMOGLOBIN 12.5 g/dl (12.0-15.5); LYMPH % 34.5 % (24.0-44.0); MEAN CORPUSCULAR HEMOGLOBIN 30.2 pg (27.0-33.0); MEAN CORPUSCULAR HGB CONC 31.7 g/dl (32.0-36.5); MEAN CORPUSCULAR VOLUME 95.2 fl (80.0-96.0); MONO # 0.5 10^3/uL (0.0-0.8); NEUTROPHILS # 4.8 10^3/uL (1.5-8.5); NEUTROPHILS % 56.1 % (36.0-66.0); PLATELET COUNT, AUTOMATED 308 10^3/uL (150-450); RED BLOOD COUNT 4.14 10^6/uL (4.00-5.40); WHITE BLOOD COUNT 8.6 10^3/uL (4.0-10.0)
[2019-11-07 22:41] LABS: ALBUMIN 3.6 GM/DL (3.2-5.2); ALT/SGPT 14 U/L (12-78); BILIRUBIN,DIRECT < 0.1 MG/DL (0.0-0.2); BILIRUBIN,TOTAL 0.3 MG/DL (0.2-1.0); LIPASE 228 U/L (73-393); TOTAL PROTEIN 6.9 GM/DL (6.4-8.2)
[2019-11-07] MEDS: GASTROGRAFIN SOLUTION 30ML PO SCH (23:42)
[2019-11-08] MEDS: GASTROGRAFIN SOLUTION 30ML PO SCH (00:15)
[2019-11-08] MEDS ORDERED: ISOVUE-370 76% 100ML VIAL (Q9967) As Ordered ONE (01:07)
--- NOTE | 2019-11-08 01:50 | REPVR ---
PROCEDURE INFORMATION: Exam: CT Abdomen And Pelvis With Contrast Exam date and time: 11/07/2019 11:20 PM Age: 74 years old Clinical indication: Other: Rectal bleed; Additional info: Diverticular bleed TECHNIQUE: Imaging protocol: Computed tomography of the abdomen and pelvis with intravenous contrast. Radiation optimization: All CT scans at this facility use at least one of these dose optimization techniques: automated exposure control; mA and/or kV adjustment per patient size (includes targeted exams where dose is matched to clinical indication); or iterative reconstruction. Contrast material: ISO; Contrast volume: 100 ml; Contrast route: FOREARM; COMPARISON: CT ABD/PEL W/IV CONTRAST ONLY 10/05/2019 2:28 PM FINDINGS: Lungs: Minimal right base dependent atelectasis. Liver: The liver attenuation is 68 Hounsfield units and the spleen is 105 Hounsfield units. Gallbladder and bile ducts: Normal. No calcified stones. No ductal dilation. Pancreas: Normal. No ductal dilation. Spleen: Normal. No splenomegaly. Adrenals: Normal. No mass. Kidneys and ureters: Normal. No hydronephrosis. Stomach and bowel: Minimal sigmoid diverticulosis with slight mid sigmoid wall thickening but no significant surrounding induration which may reflect muscular hypertrophy or minimal nonspecific segmental colitis which may extend from the distal descending colon through much of the sigmoid. Appendix: A normal small appendix is seen. Intraperitoneal space: Unremarkable. No free air. No significant fluid collection. Vasculature: There is mild calcification of the abdominal aorta with extension into the iliac arteries. Lymph nodes: Unremarkable. No enlarged lymph nodes. Bladder: Unremarkable as visualized. Reproductive: Unremarkable as visualized. Bones/joints: Degenerative changes of the lumbar spine with decreased height of T11 and slight wedge configuration of T12 which appear to be chronic and is similar to the prior study. Bilateral hip prostheses in position with beam hardening artifact. Soft tissues: Unremarkable. IMPRESSION: 1. Minimal sigmoid diverticulosis with slight wall thickening from the distal descending colon through much of the sigmoid, greatest in the mid sigmoid which may reflect non-specific segmental colitis or possibly early diverticulitis and is similar to 10/05/2019. No surrounding pericolonic induration. 2. Mild fatty infiltration of the liver. 3. Otherwise negative CT abdomen/pelvis. Electronically signed by: Alvino Jack On 11/08/2019 01:49:55 AM
[2019-11-08] MEDS ORDERED: PREG50CA PO (02:43)
[2019-11-08] MEDS ORDERED: DULO1CAP5 PO (02:43)
[2019-11-08] MEDS ORDERED: TIZA2TAB4 PO (02:43)
[2019-11-08] MEDS ORDERED: ELIQ5TAB PO (02:43)
[2019-11-08] MEDS ORDERED: ACET1TAB55 PO (02:43)
[2019-11-08] MEDS ORDERED: AMLO5TAB6 PO (02:43)
[2019-11-08 03:08] LABS: INR 1.11
[2019-11-08 04:21] VITALS: BP 126/79
[2019-11-08] MEDS ORDERED: DEXTROSE 50% 50 ML SYRINGE IV PRN (04:45)
[2019-11-08] MEDS ORDERED: GLUCAGON FOR INJ 1 MG VIAL (J1610) SC PRN (04:45)
[2019-11-08] MEDS ORDERED: GLUCOSE 4 GM CHEW TABLET PO PRN (04:45)
[2019-11-08 05:42] VITALS: BP 146/67
[2019-11-08] MEDS: NICOTINE 21MG/24HR 1 EA TRANSDERMAL TD SCH ×2 (05:49→09:00)
--- NOTE | 2019-11-08 06:11 | HPEPDOC ---
[facility] Medical History & Physical Date of Admission Nov 08, 2019 Date of Service: Nov 08, 2019 Primary Care Physician: Jr Stauffer Collins Attending Physician: SOLA HOBSON MD History and Physical CHIEF COMPLAINT: Rectal bleeding HISTORY OF PRESENT ILLNESS: is a 74-year-old female with past medical history of type 2 diabetes, CVA (2018) on Eliquis, hypertension, hyperlipidemia, s/p cervical and lumbar surgery (2018), and obesity, who presented to the emergency department with the chief complaint of rectal bleeding that occurred at 6 PM on day of presentation. After bowel movement, patient noticed bright red blood with areas of clotted blood on the toilet tissue. There was also bright red blood in the toilet bowl water. Patient reports this is the first such episode she has had this type of bleeding. Patient subsequently had a bowel movement in the ED at bedside commode with lesser amounts of blood on the toilet tissue than the first episode. She endorses a 1 month history of achy and intermittent right lower quadrant abdominal pain with intermittent nausea and about 5 episodes of non-bloody emesis. Over this last month, patient endorses approximately 20 pound unintentional weight loss without any significant changes to diet. Patient's last colonoscopy was in [address] Morley with findings of internal hemorrhoids. Patient has never had an EGD performed. Patient denies any recent change in medication regimen, recent sick contacts, or recent travel. In the emergency department, CT abdomen and pelvis showed minimal sigmoid diverticulosis with minor wall thickening from the distal descending colon through the sigmoid that may reflect either early diverticulitis or nonspecific segmental colitis. Initial CBC and CMP were unremarkable. Follow-up H&H showed a drop in hemoglobin from 12.5 to 11.9. Coagulation studies were unremarkable. REVIEW OF SYSTEMS: CONSTITUTIONAL: Endorses roughly 20 pound unintentional weight loss over the past month; denies fever, chills, night sweats CARDIOVASCULAR: Denies chest pain or palpitations RESPIRATORY: Denies shortness of breath or pleuritic chest pain GASTROINTESTINAL: Endorses right lower quadrant intermittent achy pain over the past month with approximately 5 episodes of nonbloody emesis and 2 episodes today of bright red blood per rectum GENITOURINARY: Denies dysuria or hematuria NEUROLOGICAL: Endorses bilateral hand numbness; Denies headache, lightheadedness, dizziness, or syncope HEMATOLOGIC/LYMPHATIC: Endorses easier bruising since starting Eliquis PAST MEDICAL / SURGICAL HISTORY: Type 2 diabetes CVA (2018), on Eliquis HTN Hyperlipidemia Arthritis Cataracts Obesity Cervical spinal fusion, 2018 Lumbar disc surgery, 2018 section Right total hip arthroplasty Cataract surgery SOCIAL HISTORY: Active tobacco user; has smoked 1/2 ppd of cigarettes for the past 6 years Denies current or former alcohol use Denies current or former illegal drug use FAMILY HISTORY: Mother: CVA and DM Father: Arthritis, s/p b/l hip replacements ALLERGIES: Please see below. HOME MEDICATIONS: Please see below. PHYSICAL EXAMINATION: VITAL SIGNS: Please see below GENERAL APPEARANCE: female who appears stated age. She is seated comfortably upright in bed. In no apparent acute distress. Alert and oriented 3. HEENT: Normocephalic, atraumatic. Wearing eyeglasses. Anicteric and noninjected sclera. Upper dentures present. No cervical or supraclavicular lymphadenopathy appreciated. Trachea is midline. Raspy voice. CARDIOVASCULAR: 2/6 systolic murmur heard best at the right parasternal second intercostal space. Regular rate and rhythm. S1, S2 auscultated. LUNGS: Mildly diminished tidal volume. Clear to auscultation with no wheezes, crackles or rhonchi appreciated. Breathing on room air. ABDOMEN: Soft, obese. Nondistended. Tenderness of right lower quadrant. Norm oactive bowel sounds present. Approximately foot-long vertical scar over the midline thoracic and lumbar vertebral regions. Approximately 5 cm scar over cervical vertebral region. Infra umbilical vertical scar. Abdominal striae present. EXTREMITIES: No lower extremity edema. Equal radial and posterior tibial pulses bilaterally. NEUROLOGICAL: Awake, alert and oriented 3. No focal neurological deficits appreciated. PSYCHIATRIC: Mood and affect appear appropriate. LABORATORY DATA: Please see below. IMAGING: CT abdomen, pelvis with IV and oral contrast, 11/07/19: 1. Minimal sigmoid diverticulosis with slight wall thickening from the distal descending colon through much of the sigmoid, greatest in the mid sigmoid which may reflect non-specific segmental colitis or possibly early diverticulitis and is similar to 10/05/2019. No surrounding pericolonic induration. 2. Mild fatty infiltration of the liver. 3. Otherwise negative CT abdomen/pelvis. MICROBIOLOGY: Please see below. ASSESSMENT & PLAN: This is a 74-year-old female with history of CVA on Eliquis, type 2 diabetes, hypertension, and hyperlipidemia who is admitted for evaluation of lower GI bleed. #Lower GI bleed -Based on presentation of painless bleeding in an elderly patient, coupled with CT findings, likely etiology is a diverticular bleed -Other possible etiologies are hemorrhoids, AVM, and colon cancer -GI consult placed -Clear liquid diet ordered -Hemoccult ordered -Initial hemoglobin 12.5 with repeat of 11.9; morning CBC ordered #History of CVA -eliquis #Type II DM, non-insulin dependent -ISS ac & hs with hyoglycemic protocol -home diabetic meds held #HTN -c/w home meds #HLD -c/w home meds #Tobacco use -Nicotine patch ordered #S/p cervical and lumbar vertebral surgeries in 2018 -home lyrica continued for neuropathic pain #DVT prophylaxis: eliquis Vital Signs Vital Signs Date Time Temp Pulse Resp B/P (MAP) Pulse Ox O2 Delivery O2 Flow Rate FiO2 11/08/19 04:21 96.9 87 20 126/79 (95) 97 Room Air Laboratory Data Labs 24H Laboratory Tests 2 11/07/19 21:45: Immature Granulocyte % (Auto) 0.2, Neutrophils (%) (Auto) 56.1, Lymphocytes (%) (Auto) 34.5, Monocytes (%) (Auto) 6.0H, Eosinophils (%) (Auto) 2.7, Basophils (%) (Auto) 0.5, Neutrophils # (Auto) 4.8, Lymphocytes # (Auto) 3.0, Monocytes # (Auto) 0.5, Eosinophils # (Auto) 0.2, Basophils # (Auto) 0.0, Nucleated Red Blood Cells % (auto) 0.0, Total Bilirubin 0.3, Direct Bilirubin < 0.1, Aspartate Amino Transf (AST/SGOT) 11, Alanine Aminotransferase (ALT/SGPT) 14, Alkaline Phosphatase 101, Total Protein 6.9, Albumin 3.6, Albumin/Globulin Ratio 1.09, Lipase 228 11/07/19 22:58: POC Glucose (Misc Panel) 121H, POC Sodium (Misc Panel) 139, POC Potassium (Misc Panel) 3.6, POC Chloride (Misc Panel) 103, POC Total CO2 (Misc Panel) 25.0, POC Blood Urea Nitrogen (Misc Panel 16, POC Ionized Calcium (Misc Panel) 4.8, POC Creatinine (Misc Panel) 1.0, POC Hematocrit (Misc Panel) 43.0 11/08/19 02:52: Prothrombin Time 14.0, Prothromb Time International Ratio 1.11 CBC/BMP Laboratory Tests 11/07/19 21:45 11/08/19 02:52 Home Medications Scheduled Amlodipine Besylate (Amlodipine Besylate) 5 Mg Tablet, 5 MG PO DAILY Apixaban (Eliquis) 5 Mg Tablet, 5 MG PO BID Duloxetine Hcl (Duloxetine HCl) 30 Mg Capsule.dr, 30 MG PO BID Losartan Potassium (Losartan Potassium) 50 Mg Tab, 50 MG PO BID Pregabalin (Lyrica) 50 Mg Capsule, 50 MG PO BID Sitagliptin Phos/Metformin HCl (Janumet Xr 50-500 mg Tablet) 1 Tab Tab, 1 TAB PO BID Scheduled PRN Acetaminophen (Acetaminophen) 325 Mg Tablet, 650 MG PO Q4H PRN for PAIN / FEVER Tizanidine HCl (Tizanidine HCl) 2 Mg Tablet, 2 MG PO BID PRN for MUSCLE SPASMS Allergies Coded Allergies: No Known Allergies (Verified , 03/07/18) A-FIB/CHADSVASC A-FIB History Current/History of A-Fib/PAF?: No Current PO Anticoag Therapy: Yes (Eliquis) GME ATTESTATION GME ATTESTATION My faculty preceptor for this patient encounter was physically present during the encounter and was fully available. All aspects of the patient interview, examination, medical decision making process, and medical care plan development were reviewed and approved by the faculty preceptor. The faculty preceptor is aware and concurs with the plan as stated in the body of this note and will attest to such by his/her cosignature. ATTENDING NOTE I examined the patient at 245AM is a 74 yr old F w a PMH of DM, CVA on eliquis, HTN, dyslipidemia, chronic back pain and obesity who is admitted for evaluation of anemia 2/2 LGIB. Hg is trending down, eliquis should be held pending GI consult with PETAR Soto D.O. Nov 08, 2019 06:11 SOLA HOBSON MD Nov 08, 2019 06:44
[2019-11-08 07:03] LABS: HEMATOCRIT 37.4 % (36.0-47.0); HEMOGLOBIN 11.7 g/dl (12.0-15.5); MEAN CORPUSCULAR HEMOGLOBIN 30.1 pg (27.0-33.0); MEAN CORPUSCULAR HGB CONC 31.3 g/dl (32.0-36.5); MEAN CORPUSCULAR VOLUME 96.1 fl (80.0-96.0); PLATELET COUNT, AUTOMATED 274 10^3/uL (150-450); RED BLOOD COUNT 3.89 10^6/uL (4.00-5.40); WHITE BLOOD COUNT 8.1 10^3/uL (4.0-10.0)
[2019-11-08 07:23] LABS: CALCIUM LEVEL 8.3 MG/DL (8.8-10.2); CREATININE FOR GFR 1.02 MG/DL (0.55-1.30); GLOMERULAR FILTRATION RATE 56.4 (>39); POTASSIUM SERUM 3.9 MEQ/L (3.5-5.1)
[2019-11-08] MEDS ORDERED: HumaLOG INSULIN (NovoLOG) PER UNIT SC SCH ×2 (07:30→21:00)
[2019-11-08] MEDS ORDERED: DULoxetine 30 MG CAP (CYMBALTA) PO SCH (09:00)
[2019-11-08] MEDS ORDERED: APIXABAN 5 MG TAB (ELIQUIS) PO SCH (09:00)
[2019-11-08] MEDS ORDERED: amLODIPine 5 MG TAB PO SCH (09:00)
[2019-11-08] MEDS ORDERED: LOSARTAN 50 MG TAB PO SCH (09:00)
[2019-11-08] MEDS ORDERED: PREGABALIN 50 MG CAP (LYRICA) PO SCH (09:00)
[2019-11-08 09:38] VITALS: BP 146/67
--- NOTE | 2019-11-08 10:22 | IPNPDOC ---
Subjective Date Seen The patient was seen on 11/08/19. Subjective Chief Complaint/HPI No bleeding overnight, received eliquis this morning. No dizziness or lightheadedness. hgb this am mildly lower, w/o significant drop. Objective Physical Examination General Exam: Positive: Alert, No Acute Distress Eye Exam: Positive: PERRLA, Conjunctiva & lids normal, EOMI; Negative: Sclera icteric ENT Exam: Positive: Atraumatic, Mucous membr. moist/pink, Pharynx Normal Neck Exam: Positive: Supple; Negative: JVD, thyromegaly Chest Exam: Positive: Clear to auscultation, Normal air movement Heart Exam: Positive: Rate Normal, Regular Rhythm, Normal S1, Normal S2; Negative: Murmurs, Rubs Telemetry: Positive: No significant arrhythmia Abdomen Exam: Positive: Normal bowel sounds, Soft; Negative: Tenderness, Hepatospenomegaly Female Exam: Positive: Nl Ext Genitalia; Negative: Lesions, Discharge, Odor, Tenderness Extremity Exam: Positive: Normal pulses; Negative: Clubbing, Cyanosis, Edema Skin Exam: Positive: Nl turgor and temperature; Negative: Rash, Breakdown Neuro Exam: Positive: Normal Gait, Normal Speech, Cranial Nerves 3-12 NL, Reflexes 2+ Psych Exam: Positive: Mental status NL, Mood NL, Oriented x 3 Assessment /Plan Assessment # GI Bleed - resolved - hgb stable - received eliquis this am w/o further bleeding - cancel GI consult - discharge home - f/u with pcp for referral to GI for evaluation as outpatient Plan/VTE VTE Prophylaxis Ordered?: Yes (eliquis) VTE Exclusion Mechanical Proph: N/A:VTE Prophy Ordered VTE Exclusion Pharmacological: N/A:VTE Prophy Ordered VS, I&O, 24H, Fishbone Vital Signs/I&O Vital Signs Date Time Temp Pulse Resp B/P (MAP) Pulse Ox O2 Delivery O2 Flow Rate FiO2 11/08/19 09:38 88 146/67 11/08/19 05:42 97.3 18 11/08/19 04:21 97 Room Air I&O- Last 24 Hours up to 6 AM 11/08/19 06:00 Intake Total 360 ml Output Total 0 ml Balance 360 ml Laboratory Data 24H LABS Laboratory Tests 2 11/07/19 21:45: Immature Granulocyte % (Auto) 0.2, Neutrophils (%) (Auto) 56.1, Lymphocytes (%) (Auto) 34.5, Monocytes (%) (Auto) 6.0H, Eosinophils (%) (Auto) 2.7, Basophils (%) (Auto) 0.5, Neutrophils # (Auto) 4.8, Lymphocytes # (Auto) 3.0, Monocytes # (Auto) 0.5, Eosinophils # (Auto) 0.2, Basophils # (Auto) 0.0, Nucleated Red Blood Cells % (auto) 0.0, Total Bilirubin 0.3, Direct Bilirubin < 0.1, Aspartate Amino Transf (AST/SGOT) 11, Alanine Aminotransferase (ALT/SGPT) 14, Alkaline Phosphatase 101, Total Protein 6.9, Albumin 3.6, Albumin/Globulin Ratio 1.09, Lipase 228 11/07/19 22:58: POC Glucose (Misc Panel) 121H, POC Sodium (Misc Panel) 139, POC Potassium (Misc Panel) 3.6, POC Chloride (Misc Panel) 103, POC Total CO2 (Misc Panel) 25.0, POC Blood Urea Nitrogen (Misc Panel 16, POC Ionized Calcium (Misc Panel) 4.8, POC Creatinine (Misc Panel) 1.0, POC Hematocrit (Misc Panel) 43.0 11/08/19 02:52: Prothrombin Time 14.0, Prothromb Time International Ratio 1.11 11/08/19 05:47: Bedside Glucose (Misc Panel) 126H 11/08/19 06:51: Nucleated Red Blood Cells % (auto) 0.0, Anion Gap 7L, Glomerular Filtration Rate 56.4, Calcium Level 8.3L CBC/BMP Laboratory Tests 11/07/19 21:45 11/08/19 02:52 11/08/19 06:51 PERLITA ALEJANDRA MD Nov 08, 2019 10:21
--- NOTE | 2019-11-08 22:55 | DSES ---
DATE OF ADMISSION: 11/08/2019 DATE OF DISCHARGE: 11/08/2019 ATTENDING PHYSICIAN: Dr. Shah DISCHARGING PHYSICIAN: Dr. Mathew DISCHARGE DIAGNOSES: 1. Lower gastrointestinal bleed. 2. Acute history of CVA. 3. Chronic Eliquis use. 4. Aan-qrmewmt-yhfnngqov diabetes mellitus type 2. CONSULTANTS ON THE CASE: None. PROCEDURES DURING HOSPITALIZATION: None. DISPOSITION: The patient is discharged home in stable condition. DISCHARGE INSTRUCTIONS: The patient is instructed to resume her Eliquis. She is advised to followup with her primary care provider, Dr. Stauffer, to make arrangements for outpatient GI followup. THe patient is instructed that if she should develop any recurrent bleeding that she is to return to the emergency room. IMAGING STUDIES DURING HOSPITAL STAY: CT of the abdomen and pelvis, which was completed with contrast. Please reference full report for details. It showed that she has minimal sigmoid diverticulosis with slight wall thickening from the distal descending colon to much of the sigmoid. Greatest in the mid sigmoid, which may reflect nonspecified segmental colitis or possibly diverticulitis, similar to 10/05/2019 CAT scan. No surrounding pericolonic induration. Mild fatty infiltration of the liver. Otherwise, negative CT of the abdomen and pelvis. RELEVANT LABORATORIES: White blood cell count on admission was 8.6, hemoglobin on admission was 12.5 and on discharge was 11.7, hematocrit 39.4 and on discharge 37.4, platelet 274. Sodium 141, potassium 3.5, chloride 109, bicarbonate 25, BUN 12, creatinine 1, glucose 121, alkaline phosphatase 101, lipase 228. Coag shows INR 1.11, PT of 14. HOSPITAL COURSE: Ms. Jimenez is a 74-year-old woman who presented to the hospital after experiencing bright red blood per rectum. The patient was admitted to the hospital where she was found to have a stable hemoglobin. The patient was resumed on her Eliquis and the following day repeat complete blood count (CBC) remained stable. She had no further recurrent bleeding. Initially GI consult was ordered to evaluate, but because she had a stable hemoglobin and no further episode of bleeding, GI consult was canceled. She was recommended to followup as an outpatient with her primary care provider for a referral to GI. The patient was discharged home in stable condition. Total of 30 minutes was spent filling out discharge paperwork.
== END 2019-11-08 11:45 | disposition home or self-care (01) | DRG 379 ==
LOC: M ED 21:23 → M ED INP 11-08 02:20 → ENRESERV 11-08 03:03 → M MS5PR 11-08 04:10
PROVIDERS: ADMIT Internal Medicine; ATTEND Internal Medicine
DX: K92.2 Gastrointestinal hemorrhage, unspecified (principal); Z86.73 Personal history of transient ischemic attack (TIA), and cerebral infarction without residual deficits; E11.9 Type 2 diabetes mellitus without complications; I10 Essential (primary) hypertension; E78.5 Hyperlipidemia, unspecified; E66.9 Obesity, unspecified; Z68.32 Body mass index [BMI] 32.0-32.9, adult; M06.9 Rheumatoid arthritis, unspecified; F17.210 Nicotine dependence, cigarettes, uncomplicated; Z96.641 Presence of right artificial hip joint; Z98.49 Cataract extraction status, unspecified eye; Z79.01 Long term (current) use of anticoagulants; Z98.1 Arthrodesis status; Z79.899 Other long term (current) drug therapy

== ENCOUNTER → 2019-11-19 | Outpatient (REF) | payer MEDICARE, MEDICAID ==
[~2019-11-19] MED LIST changes: +ACET1TAB55 PO; +AMLO5TAB6 PO; +DULO1CAP5 PO; +IRBE75TA4 PO; -IRBE75TA5 PO; +TIZA2TAB4 PO
[2019-11-19 13:22] LABS: PERCENT SATURATION 15.5 % (13.2-45.0)
== END ==
LOC: M LAB REF 12:15
PROVIDERS: ATTEND Internal Medicine
DX: K92.2 Gastrointestinal hemorrhage, unspecified (principal); D62 Acute posthemorrhagic anemia

== ENCOUNTER → 2019-12-19 | Outpatient (CLI) | payer MEDICARE, MEDICAID ==
[2019-12-19 17:43] LABS: BLOOD UREA NITROGEN 17 MG/DL (7-18); CREATININE FOR GFR 0.89 MG/DL (0.55-1.30); GLOMERULAR FILTRATION RATE > 60.0 (>39)
== END ==
LOC: M WUC 12:34
PROVIDERS: ATTEND Orthopaedic Surgery
DX: M19.011 Primary osteoarthritis, right shoulder (principal)

== ENCOUNTER 2019-12-25 11:35 | Emergency (ER) | payer MEDICARE, MEDICAID ==
[~2019-12-25] VITALS: Ht 154.9 cm; Wt 90.0 kg
[2019-12-25] MEDS ORDERED: ACETAMINOPHEN TAB 650MG DOSE (2X325MG) PO ONE (12:30)
[2019-12-25] MEDS ORDERED: traMADol 50 MG TAB PO ONE (12:30)
[2019-12-25] MEDS ORDERED: ULTR50TA8 PO (13:44)
[2019-12-25 13:57] VITALS: BP 157/83
== END 2019-12-25 14:01 | disposition home or self-care (01) ==
LOC: M ED 11:35 → EDBD 11:35 → M ED 14:01
DX: M54.41 Lumbago with sciatica, right side (principal); I10 Essential (primary) hypertension; E11.9 Type 2 diabetes mellitus without complications; E78.00 Pure hypercholesterolemia, unspecified; M81.0 Age-related osteoporosis without current pathological fracture; Z79.899 Other long term (current) drug therapy; Z79.01 Long term (current) use of anticoagulants; F17.210 Nicotine dependence, cigarettes, uncomplicated

== ENCOUNTER 2020-01-19 19:43 | Inpatient (IN) | payer MEDICARE, MEDICAID ==
[~2020-01-19] VITALS: Ht 154.9 cm; Wt 87.5 kg
[~2020-01-19 19:43] MED LIST changes: +ULTR50TA8 PO
[2020-01-19 20:09] LABS: BASO % 0.4 % (0.0-1.0); EOS # 0.1 10^3/uL (0.0-0.5); EOS % 1.2 % (0.0-3.0); HEMOGLOBIN 12.8 g/dl (12.0-15.5); LYMPH # 2.9 10^3/uL (1.5-5.0); LYMPH % 28.5 % (24.0-44.0); MEAN CORPUSCULAR HEMOGLOBIN 31.3 pg (27.0-33.0); MEAN CORPUSCULAR HGB CONC 32.8 g/dl (32.0-36.5); MEAN CORPUSCULAR VOLUME 95.4 fl (80.0-96.0); MONO # 0.5 10^3/uL (0.0-0.8); MONO % 4.9 % (0.0-5.0); NEUTROPHILS # 6.6 10^3/uL (1.5-8.5); NEUTROPHILS % 64.8 % (36.0-66.0); PLATELET COUNT, AUTOMATED 277 10^3/uL (150-450); RED BLOOD COUNT 4.09 10^6/uL (4.00-5.40); WHITE BLOOD COUNT 10.2 10^3/uL (4.0-10.0)
--- NOTE | 2020-01-19 20:21 | REPVR ---
PROCEDURE INFORMATION: Exam: CT Cervical Spine Without Contrast Exam date and time: 01/19/2020 8:08 PM Age: 74 years old Clinical indication: Injury or trauma; Fall; Initial encounter; Blunt trauma; Additional info: Syncope TECHNIQUE: Imaging protocol: Computed tomography images of the cervical spine without contrast. Axial, coronal and sagittal reformatted images were created and reviewed. Radiation optimization: All CT scans at this facility use at least one of these dose optimization techniques: automated exposure control; mA and/or kV adjustment per patient size (includes targeted exams where dose is matched to clinical indication); or iterative reconstruction. COMPARISON: No relevant prior studies available. FINDINGS: Vertebrae: Osteopenia. Reversal of the normal cervical lordosis. Mild retrolisthesis of C3 on C4. Alignment otherwise anatomic. Levoscoliosis. No CT evidence of acute fracture, dislocation or subluxation. Vertebral body heights maintained. Posterior fusion hardware at C3, C4, C5, C6 and C7 on the right. Discs/Spinal canal/Neural foramina: C3-C5 bony fusion. Multilevel degenerative changes, characterized by disc space narrowing, osteophytosis and uncovertebral and facet joint hypertrophy. Multilevel spinal canal and neural foraminal narrowing. Soft tissues: Grossly unremarkable. Lungs: Grossly unremarkable. IMPRESSION: 1. No CT evidence of acute cervical spine traumatic injury. 2. Additional findings, as above. Electronically signed by: Kermit Arevalo On 01/19/2020 20:20:39 PM
--- NOTE | 2020-01-19 20:26 | REPVR ---
PROCEDURE INFORMATION: Exam: CT Head Without Contrast Exam date and time: 01/19/2020 8:08 PM Age: 74 years old Clinical indication: Syncope and collapse TECHNIQUE: Imaging protocol: Computed tomography of the head without contrast. Axial and coronal reformatted images were created and reviewed. Radiation optimization: All CT scans at this facility use at least one of these dose optimization techniques: automated exposure control; mA and/or kV adjustment per patient size (includes targeted exams where dose is matched to clinical indication); or iterative reconstruction. COMPARISON: CT Head without contrast 04/04/2019 11:03 AM FINDINGS: Brain: Right temporoparietal and right occipital encephalomalacia, consistent with remote ischemia. Patchy areas of hypoattenuation in the periventricular and subcortical white matter, consistent with chronic small vessel ischemic disease. No CT evidence of acute intracranial hemorrhage or acute territorial infarction. No significant mass effect or midline shift. Basal cisterns patent. Ventricles: Prominence of the cortical sulci, cisterns and ventricular system, consistent with cerebral and cerebellar volume loss. Bones/joints: No acute osseous abnormality. Sinuses: Grossly unremarkable. Mastoid air cells: Grossly unremarkable. Soft tissues: Grossly unremarkable. Vasculature: Calcific atherosclerotic disease in the cavernous internal carotid arteries, as well as the vertebro-basilar system. IMPRESSION: 1. No CT evidence of acute intracranial pathology. 2. Additional findings, as above. Electronically signed by: Kermit Arevalo On 01/19/2020 20:25:49 PM
[2020-01-19 20:47] LABS: CALCIUM LEVEL 9.3 MG/DL (8.8-10.2); CK-MB VALUE MASS 1.4 NG/ML (<3.6); CREATININE FOR GFR 1.04 MG/DL (0.55-1.30); GLOMERULAR FILTRATION RATE 55.1 (>39); MB/CK RELATIVE INDEX 2.22 (< OR =4); POTASSIUM SERUM 3.7 MEQ/L (3.5-5.1); THYROID STIMULATING HORMONE 1.48 uIU/ML (0.358-3.740); TROPONIN I 0.04 NG/ML (< 0.10)
[2020-01-19] MEDS: HumaLOG INSULIN (NovoLOG) PER UNIT SC SCH (21:00)
[2020-01-19] MEDS ORDERED: GLUCOSE 4 GM CHEW TABLET PO PRN (21:15)
[2020-01-19] MEDS ORDERED: MOM 30ML SUSPENSION UDC PO PRN (21:15)
[2020-01-19] MEDS ORDERED: GLUCAGON FOR INJ 1 MG VIAL (J1610) SC PRN (21:15)
[2020-01-19] MEDS ORDERED: DEXTROSE 50% 50 ML SYRINGE IV PRN (21:15)
[2020-01-19] MEDS ORDERED: TRAM50TA2 PO (21:21)
[2020-01-19] MEDS ORDERED: DULO60CA35 PO (21:21)
--- NOTE | 2020-01-19 21:23 | HPEPDOC ---
[facility] Medical History & Physical Date of Admission Jan 19, 2020 Date of Service: Jan 19, 2020 Primary Care Physician: Jr Stauffer Collins Attending Physician: SOLA HOBSON MD History and Physical TIME OF SERVICE: 9:20 PM CHIEF COMPLAINT: Fall HISTORY OF PRESENT ILLNESS: This 72-year-old female presented to the ER for evaluation after having a fall backwards and hitting her head. She denies losing consciousness or having any lapses in her memory after the fall and during transportation to the ER. Prior to the fall she denied having headaches, blurry vision, shortness of breath, runny nose, cough, chest pain, shortness of breath, palpitations, vomiting, or diarrhea. She denies having similar episodes in the past, and denies falling recently. She had breakfast and lunch today but missed dinner this evening while on the way to the hospital. She doesn't check her serum glucose regularly but doesn't think that she has had any episodes where her blood sugars are low. Per Dr. Forbes, she her EKG showed bifascicular block; he discussed his findings with Dr. Mansfield, who recommended observation 72H. REVIEW OF SYSTEMS: 12 point review of systems negative except as listed in HPI PAST MEDICAL/ SURGICAL HISTORY: NIDDM2 with neuropathy CVA on Elquis Chronic HTN Dyslipidemia OA Class II Obesity Cervical spinal fusion Lumbar disc surgery Cataract surgery Right total hip arthroplasty SOCIAL HISTORY: + Tobacco - Recreational drugs FAMILY HISTORY: CVA Diabetes Arthritis ALLERGIES: Please see below. HOME MEDICATIONS: Please see below. PHYSICAL EXAMINATION: Vital Signs Date Time Temp Pulse Resp B/P (MAP) Pulse Ox O2 Delivery O2 Flow Rate FiO2 01/19/20 19:57 96.7 88 18 126/77 (93) 97 Room Air GEN: well-nourished / well developed/ NAD INTEGUMENT: not flushed/ not jaundice HEENT: NCAT / EOMI / mucus membranes dry CVS: RRR/NMRG/ no lower extremity edema LUNGS: able to speak full sentences without stopping to take a breath / breath sounds are deminished/ lungs are clear to auscultation bilaterally on room air ABDOMEN: Contour (obese) / soft & not tender with palpation MSK/EXTREMITIES: range of motion intact in all 4 extremities NEURO: CN 2-12 are grossly intact / speech is not dysarthric / strength is 5/5 in all 3 extremities PSYCH: alert and oriented to person place and time/ able to understand and follow all commands LABORATORY DATA: Immature Granulocyte % (Auto) 0.2, Neutrophils (%) (Auto) 64.8, Lymphocytes (%) (Auto) 28.5, Monocytes (%) (Auto) 4.9, Eosinophils (%) (Auto) 1.2, Basophils (%) (Auto) 0.4, Neutrophils # (Auto) 6.6, Lymphocytes # (Auto) 2.9, Monocytes # (Auto) 0.5, Eosinophils # (Auto) 0.1, Basophils # (Auto) 0.0, Nucleated Red Blood Cells % (auto) 0.0, Anion Gap 8, Glomerular Filtration Rate 55.1, Calcium Level 9.3, Total Creatine Kinase 63, Creatine Kinase MB 1.4, Creatine Kinase MB Relative Index 2.22, Troponin I 0.04, Thyroid Stimulating Hormone (TSH) 1.480 IMAGING: CT head "IMPRESSION: 1. No CT evidence of acute intracranial pathology. 2. Additional findings, as above. " CT cervical spine "IMPRESSION: 1. No CT evidence of acute cervical spine t raumatic injury. 2. Additional findings, as above. " ASSESSMENT: Ms. Fry is a 74-year-old with NIDDM with neuropathy, CVA, chronic HTN, dyslipidemia, OA, and class II obesity who is admitted for evaluation of presyncope. PLAN: 1. Presyncope Cause TBD possibly cardiac vs neurogenic Exam non focal CT head & trop unrevealing EKG showed bifascicular block Plan: admit to medical floor / telemetry / f/u orthostatics x 1 / day time can determine if CTA head, carotid US +/- 2D Echo are warranted in the morning 2. Bifasicular Block Plan: f/u telemetry and reconsult Cardio in the AM if warranted 3 NIDM2 w neuropathy -diabetic diet / f/u accuchecks & A1C / hypoglycemia protocol / sliding scale insulin / hold oral anti-glycemics 4. CVA - Elquis 5. Chronic HTN - amlodipine 6. OA - duloxetine ? 7. Class 2 Obesity w BMI if 36.7 and co-existing DM complicates care. Since the BMI >35 and the patient has DM she is a candidate for bariatric surgery - Plan: f/u A1C / the pt can f/u w his or her PCP for STOP BANG questionnaire, wood scaler consult & referral to Bariatric Surgeon / recommend cardiovascular exercise for 40 min 4-5 days a week DVT PROPHYLAXIS: Kaylee DISPOSITION: Likely home after 72 hour observation Home Medications Scheduled Amlodipine Besylate (Amlodipine Besylate) 5 Mg Tablet, 5 MG PO DAILY Apixaban (Eliquis) 5 Mg Tablet, 5 MG PO BID Duloxetine HCl (Duloxetine HCl) 60 Mg Capsule.dr, 60 MG PO DAILY Losartan Potassium (Losartan Potassium) 50 Mg Tab, 50 MG PO BID Pregabalin (Lyrica) 50 Mg Capsule, 50 MG PO BID Sitagliptin Phos/Metformin HCl (Janumet Xr 50-500 mg Tablet) 1 Tab Tab, 1 TAB PO BID Scheduled PRN Acetaminophen (Acetaminophen) 325 Mg Tablet, 650 MG PO Q4H PRN for PAIN / FEVER Tizanidine HCl (Tizanidine HCl) 2 Mg Tablet, 2 MG PO BID PRN for MUSCLE SPASMS Tramadol HCl (Tramadol HCl) 50 Mg Tablet, 50 MG PO Q8H PRN for PAIN Allergies Coded Allergies: No Known Allergies (Verified , 03/07/18) A-FIB/CHADSVASC A-FIB History Current/History of A-Fib/PAF?: No Current PO Anticoag Therapy: No SOLA HOBSON MD Jan 19, 2020 21:23
[2020-01-19 21:42] LABS: HEMOGLOBIN A1c 6.5 %
[2020-01-19 22:37] VITALS: BP 134/50
[2020-01-19 23:00] VITALS: BP_SYST 134; BP_SYST 138; BP_SYST 140; BP_DIAS 50; BP_DIAS 82; BP_DIAS 96
[2020-01-19] MEDS: LOSARTAN 50 MG TAB PO SCH (23:43)
[2020-01-19] MEDS: PREGABALIN 50 MG CAP (LYRICA) PO SCH (23:43)
[2020-01-19] MEDS: APIXABAN 5 MG TAB (ELIQUIS) PO SCH (23:44)
[2020-01-19] MEDS: traMADol 50 MG TAB PO PRN (23:44)
[2020-01-19] MEDS: tiZANidine 4 MG TAB PO PRN (23:45)
[2020-01-20 05:35] LABS: HEMOGLOBIN 11.8 g/dl (12.0-15.5); MEAN CORPUSCULAR HEMOGLOBIN 30.9 pg (27.0-33.0); MEAN CORPUSCULAR HGB CONC 32.8 g/dl (32.0-36.5); MEAN CORPUSCULAR VOLUME 94.2 fl (80.0-96.0); PLATELET COUNT, AUTOMATED 253 10^3/uL (150-450); RED BLOOD COUNT 3.82 10^6/uL (4.00-5.40); WHITE BLOOD COUNT 9.3 10^3/uL (4.0-10.0)
[2020-01-20 06:00] VITALS: BP 115/71
[2020-01-20 06:00] LABS: BLOOD UREA NITROGEN 18 MG/DL (7-18); CALCIUM LEVEL 9.1 MG/DL (8.8-10.2); CARBON DIOXIDE LEVEL 25 MEQ/L (21-32); CHLORIDE LEVEL 106 MEQ/L (98-107); CREATININE FOR GFR 0.92 MG/DL (0.55-1.30); GLOMERULAR FILTRATION RATE > 60.0 (>39); GLUCOSE, FASTING 106 MG/DL (70-100); MAGNESIUM LEVEL 1.9 MG/DL (1.8-2.4); POTASSIUM SERUM 3.4 MEQ/L (3.5-5.1); SODIUM LEVEL 138 MEQ/L (136-145)
[2020-01-20] MEDS: ACETAMINOPHEN TAB 650MG DOSE (2X325MG) PO PRN (06:11)
[2020-01-20] MEDS: HumaLOG INSULIN (NovoLOG) PER UNIT SC SCH ×4 (07:30→20:21)
[2020-01-20] MEDS: LOSARTAN 50 MG TAB PO SCH ×2 (08:10→20:26)
[2020-01-20] MEDS: amLODIPine 5 MG TAB PO SCH (08:11)
[2020-01-20] MEDS: PREGABALIN 50 MG CAP (LYRICA) PO SCH ×2 (08:11→20:26)
[2020-01-20] MEDS: APIXABAN 5 MG TAB (ELIQUIS) PO SCH ×2 (08:11→20:25)
[2020-01-20] MEDS: traMADol 50 MG TAB PO PRN ×2 (08:14→17:10)
[2020-01-20] MEDS: POTASSIUM CHLORIDE 10 MEQ SR TABLET PO SCH ×2 (09:44→12:49)
[2020-01-20 14:00] VITALS: BP 120/68
--- NOTE | 2020-01-20 20:08 | IPNPDOC ---
Date Seen The patient was seen on 01/20/20. Progress Note SUBJECTIVE: 74 y.o female w/ PMH of DM, HTN, HLD, CVA & Osteoarthritis presented w/ presyncope and fall, found to have bifasicular and admitted for observation. She has remained asymptomatic since admission, resting comfortably in bed, no complaints at this time. She denies any SOB, CP, N/V/D or abdominal pain. 10 point review of system is negative except for above. OBJECTIVE PHYSICAL EXAMINATION: VITAL SIGNS: Please see below. GENERAL: No distress HEENT: Moist mucus membranes CARDIOVASCULAR: S1, S2 RESPIRATORY: Clear to auscultation ABDOMINAL: Soft, non-tender, non-distended, +BS EXTREMITIES: ROM intact NEUROLOGICAL: No focal deficits PSYCHOLOGICAL: calm LABORATORY DATA, IMAGING STUDIES, MICROBIOLOGY: Please see below. ASSESSMENT AND PLAN: 74 y.o female w/ multiple medical comorbidities is admitted for presyncope/fall. PROBLEMS: 1. Presyncope/fall - unknown etiology, asymptomatic since admission, PT eval, tele monitoring. 2. Bifasciular block - no ACS, likely underlying CAD, TTE for further evaluation, asymptomatic. 3. DM - sliding scale insulin coverage w/ meals & at bedtime 4. HTN - continue Norvasc & Losartan 5. h/o CVA - continue home Eliquis DVT prophylaxis - Eliquis GI Prophylaxis - not needed VS, I&O, 24H, Fishbone Vital Signs/I&O Vital Signs Date Time Temp Pulse Resp B/P (MAP) Pulse Ox O2 Delivery O2 Flow Rate FiO2 01/20/20 17:40 17 01/20/20 14:00 98.0 86 120/68 (85) 95 Room Air I&O- Last 24 Hours up to 6 AM 01/20/20 06:00 Intake Total 120 ml Output Total 200 ml Balance -80 ml Laboratory Data 24H LABS Laboratory Tests 2 01/19/20 20:00: Bedside Glucose (Misc Panel) 174H 01/19/20 20:02: Immature Granulocyte % (Auto) 0.2, Neutrophils (%) (Auto) 64.8, Lymphocytes (%) (Auto) 28.5, Monocytes (%) (Auto) 4.9, Eosinophils (%) (Auto) 1.2, Basophils (%) (Auto) 0.4, Neutrophils # (Auto) 6.6, Lymphocytes # (Auto) 2.9, Monocytes # (Auto) 0.5, Eosinophils # (Auto) 0.1, Basophils # (Auto) 0.0, Nucleated Red Blood Cells % (auto) 0.0, Anion Gap 8, Glomerular Filtration Rate 55.1, Estimated Mean Plasma Glucose 140H, Hemoglobin A1c 6.5, Calcium Level 9.3, Total Creatine Kinase 63, Creatine Kinase MB 1.4, Creatine Kinase MB Relative Index 2.22, Troponin I 0.04, Thyroid Stimulating Hormone (TSH) 1.480 01/19/20 22:55: Bedside Glucose (Misc Panel) 123H 01/20/20 05:02: Nucleated Red Blood Cells % (auto) 0.0, Anion Gap 7L, Glomerular Filtration Rate > 60.0, Calcium Level 9.1, Magnesium Level 1.9 01/20/20 12:15: Bedside Glucose (Misc Panel) 162H 01/20/20 16:54: Bedside Glucose (Misc Panel) 109 CBC/BMP Laboratory Tests 01/19/20 20:02 01/20/20 05:02 FARIDA PETER MD Jan 20, 2020 20:08
[2020-01-20] MEDS: tiZANidine 4 MG TAB PO PRN (20:26)
[2020-01-20 22:00] VITALS: BP 124/67
[2020-01-21] MEDS: traMADol 50 MG TAB PO PRN (01:04)
[2020-01-21 06:00] VITALS: BP 158/88
[2020-01-21 06:11] LABS: HEMATOCRIT 39.1 % (36.0-47.0); HEMOGLOBIN 12.9 g/dl (12.0-15.5); MEAN CORPUSCULAR HEMOGLOBIN 31.8 pg (27.0-33.0); MEAN CORPUSCULAR VOLUME 96.3 fl (80.0-96.0); PLATELET COUNT, AUTOMATED 275 10^3/uL (150-450); RED BLOOD COUNT 4.06 10^6/uL (4.00-5.40); WHITE BLOOD COUNT 9.4 10^3/uL (4.0-10.0)
[2020-01-21 06:41] LABS: BLOOD UREA NITROGEN 20 MG/DL (7-18); CALCIUM LEVEL 8.6 MG/DL (8.8-10.2); CARBON DIOXIDE LEVEL 26 MEQ/L (21-32); CHLORIDE LEVEL 108 MEQ/L (98-107); CHOLESTEROL LEVEL 202 MG/DL (<200); CHOLESTEROL RISK RATIO 4.697 (<5); CREATININE FOR GFR 0.92 MG/DL (0.55-1.30); GLOMERULAR FILTRATION RATE > 60.0 (>39); GLUCOSE, FASTING 105 MG/DL (70-100); HDL CHOLESTEROL 43 MG/DL (>40); LDL CHOLESTEROL 103 MG/DL (<100); NON-HDL-C 159 MG/DL; POTASSIUM SERUM 4.6 MEQ/L (3.5-5.1); SODIUM LEVEL 140 MEQ/L (136-145); TRIGLYCERIDES LEVEL 278 MG/DL (<150)
[2020-01-21] MEDS: HumaLOG INSULIN (NovoLOG) PER UNIT SC SCH ×2 (07:30→12:06)
[2020-01-21] MEDS: PREGABALIN 50 MG CAP (LYRICA) PO SCH (08:40)
[2020-01-21] MEDS: APIXABAN 5 MG TAB (ELIQUIS) PO SCH (08:40)
[2020-01-21 08:43] VITALS: BP 158/88
[2020-01-21] MEDS: amLODIPine 5 MG TAB PO SCH (08:43)
[2020-01-21] MEDS: LOSARTAN 50 MG TAB PO SCH (08:43)
[2020-01-21] MEDS ORDERED: ATORVASTATIN 20 MG TAB PO SCH (09:00)
--- NOTE | 2020-01-21 09:03 | ECGEPIP ---
[facility] - ED Test Date: 2020-01-19 Pat Name: DAGOBERTO HURLEY Department: Room: [place] [address] Gender: Female Physician/Allergy/Immunology: ANTONY : 1945 Requested By: Sim Mejia Order Number: [id number] Reading MD: Elizabeth Silverio Measurements Intervals [place] Rate: 91 P: 67 [place]: 195 QRS: -61 QRSD: 172 T: 89 QT: 414 QTc: 510 Interpretive Statements SINUS RHYTHM RIGHT BUNDLE BRANCH BLOCK LEFT ANTERIOR FASCICULAR BLOCK POSSIBLE ANTERIOR MYOCARDIAL INFARCTION, OF INDETERMINATE AGE MODERATE T-WAVE ABNORMALITY, CONSIDER ISCHEMIA Electronically Signed on 01-21-2020 9:02:55 EDT by Elizabeth Silverio
[2020-01-21] MEDS: ACETAMINOPHEN TAB 650MG DOSE (2X325MG) PO PRN (13:55)
[2020-01-21 14:00] VITALS: BP 137/82
[2020-01-21] MEDS ORDERED: ATOR1TAB21 PO (15:16)
--- NOTE | 2020-01-21 17:33 | DS.PDOC ---
Discharge Summary General Date of Admission Jan 19, 2020 at 21:03 Date of Discharge 01/21/20 Attending Physician: FARIDA PETER MD Discharge Summary PROCEDURES PERFORMED DURING STAY: None. ADMITTING DIAGNOSES: 1. Pre-syncope, fall, bifascicular block. DISCHARGE DIAGNOSES: 1. Pre-syncope, fall, bifascicular block. COMPLICATIONS/CHIEF COMPLAINT: Bifascicular Block. HISTORY OF PRESENT ILLNESS: 74-year-old female with past medical history of hypertension, hyperlipidemia, CVA, presented after a presyncopal episode and fall, found to have bifascicular block. In the emergency department. She was admitted for observation, remained asymptomatic with no events on telemetry prerna toring throughout hospitalization. Patient was evaluated and cleared by physical therapy. Patient has no complaints at this time, workup has been negative for any acute pathology, clinically stable for discharge and outpatient follow-up. HOSPITAL COURSE: As above. DISCHARGE MEDICATIONS: Please see below. ALLERGIES: Please see below. PHYSICAL EXAMINATION: VITAL SIGNS: Please see below. GENERAL: No distress HEENT: Normocephalic, atraumatic, moist mucous membranes NECK: Supple CARDIOVASCULAR EXAMINATION: S1, S2, no murmurs RESPIRATORY EXAMINATION: Clear to auscultation, no wheezing ABDOMINAL EXAMINATION: Soft, nontender, nondistended, positive bowel sounds EXTREMITIES: Range of motion intact SKIN: No rash NEUROLOGICAL EXAMINATION: Alert and oriented 3, no focal deficits PSYCHIATRIC EXAMINATION: Calm and cooperative LABORATORY DATA: Please see below. IMAGING: CT head and neck negative for acute pathology PROGNOSIS: Fair ACTIVITY: As tolerated. DIET: Cardiac DISCHARGE PLAN: Follow with PCP in 1-2 weeks DISPOSITION: Home. DISCHARGE INSTRUCTIONS: 1. As above. DISCHARGE CONDITION: Stable. TIME SPENT ON DISCHARGE: Greater than 25 minutes. Vital Signs/I&Os Vital Signs Date Time Temp Pulse Resp B/P (MAP) Pulse Ox O2 Delivery O2 Flow Rate FiO2 01/21/20 14:00 98.5 91 16 137/82 (100) 96 Room Air I&O- Last 24 Hours up to 6 AM 01/21/20 05:59 Intake Total 1336 ml Output Total 400 ml Balance 936 ml Laboratory Data Labs 24H Laboratory Tests 2 01/20/20 20:13: Bedside Glucose (Misc Panel) 171H 01/21/20 05:45: Nucleated Red Blood Cells % (auto) 0.0, Anion Gap 6L, Glomerular Filtration Rate > 60.0, Calcium Level 8.6L, Triglycerides Level 278H, Total Cholesterol 202H, LDL Cholesterol 103H, Non-HDL Cholesterol (LDL + VLDL) 159, Total HDL Cholesterol 43, Cholesterol/HDL Ratio 4.697 01/21/20 11:37: Bedside Glucose (Misc Panel) 116H CBC/BMP Laboratory Tests 01/21/20 05:45 FSBS Laboratory Tests Test 01/20/20 20:13 01/21/20 11:37 Range/Units Bedside Glucose (Misc Panel) 171 116 83-110 MG/DL Discharge Medications Scheduled Amlodipine Besylate (Amlodipine Besylate) 5 Mg Tablet, 5 MG PO DAILY, (Reported) Apixaban (Eliquis) 5 Mg Tablet, 5 MG PO BID, (Reported) Atorvastatin Calcium (Atorvastatin Calcium) 20 Mg Tablet, 20 MG PO DAILY Duloxetine HCl (Duloxetine HCl) 60 Mg Capsule.dr, 60 MG PO DAILY, (Reported) Losartan Potassium (Losartan Potassium) 50 Mg Tab, 50 MG PO BID, (Reported) Pregabalin (Lyrica) 50 Mg Capsule, 50 MG PO BID, (Reported) Sitagliptin Phos/Metformin HCl (Janumet Xr 50-500 mg Tablet) 1 Tab Tab, 1 TAB PO BID, (Reported) Scheduled PRN Acetaminophen (Acetaminophen) 325 Mg Tablet, 650 MG PO Q4H PRN for PAIN / FEVER, (Reported) Tizanidine HCl (Tizanidine HCl) 2 Mg Tablet, 2 MG PO BID PRN for MUSCLE SPASMS, (Reported) Tramadol HCl (Tramadol HCl) 50 Mg Tablet, 50 MG PO Q8H PRN for PAIN, (Reported) Allergies Coded Allergies: No Known Allergies (Verified , 03/07/18) FARIDA PETER MD Jan 21, 2020 17:33
--- NOTE | 2020-01-21 18:43 | ECHO ---
DATE OF PROCEDURE: 01/21/2020 REFERRING PHYSICIAN: Dr. Torrez. INDICATION: Cardiac arrhythmia. Height 155 cm, weight 88 kg. DIMENSIONS: IVS: 1.1 LV: 4.9 LVPW: 1.1 LA: 2.3 Aorta: 2.9 RV: 2.5 IVC: 1.5 Mitral E wave velocity: 75 A wave: 95 E prime septal: 2.9 E prime lateral: 6.0 FINDINGS: Study is of fair technical quality with very limited parasternal views and subcostal views but acceptable apical views. The patient is in sinus rhythm. Left ventricle is normal size and normal systolic function with estimated ejection fraction (EF) around 60-65%. No apparent segmental wall motion abnormalities are appreciated based on limited views. Right ventricle does not appear grossly enlarged. Both atria appear normal. Aortic valve is heavily sclerotic. It has three cusps, and there is some restriction of mobility, but visualization was rather limited. Mitral valve also exhibits degenerative abnormalities with mitral annular calcifications but mobility of leaflets is preserved. Tricuspid and pulmonic valve appear normal. Prominent pericardial fat pad but no effusion is noted. Inferior vena cava is normal size. Aortic root, aortic arch and abdominal aorta appear normal. Doppler interrogation of aortic valve reveals no insufficiency and probably mild stenosis with mean gradient only 13 mmHg. There is no significant mitral valvular stenosis or insufficiency. Mild tricuspid insufficiency is seen. Quality of TR jet though was not good, and I do not believe that we can accurately assess pulmonary artery pressure. Pulmonic valve is functionally competent. Mitral inflow pattern and tissue Doppler imaging of mitral annulus revealed grade 1 diastolic dysfunction. CONCLUSIONS: 1. Study is of fair technical quality, the patient is in sinus rhythm. 2. Normal left ventricular (LV) size with preserved LV systolic function and grade 1 diastolic dysfunction. 3. Aortic sclerosis with probably mild aortic stenosis (mean gradient 13 mmHg) and no insufficiency. 4. No significant mitral and tricuspid valvular disease. 5. Likely normal central venous pressure. 6. Unable to reliably estimate pulmonary artery pressure. COMMENT: Subacute bacterial endocarditis (SBE) prophylaxis is not recommended.
== END 2020-01-21 16:50 | disposition home health service (06) | DRG 310 ==
LOC: M ED 19:43 → M ED INP 21:03 → ENRESERV 21:17 → M MSPAV 22:37
PROVIDERS: ADMIT Internal Medicine; ATTEND Internal Medicine
DX: I45.2 Bifascicular block (principal); E11.40 Type 2 diabetes mellitus with diabetic neuropathy, unspecified; I10 Essential (primary) hypertension; E78.5 Hyperlipidemia, unspecified; R55 Syncope and collapse; M19.90 Unspecified osteoarthritis, unspecified site; E66.9 Obesity, unspecified; Z98.41 Cataract extraction status, right eye; Z98.42 Cataract extraction status, left eye; Z98.1 Arthrodesis status; Z96.641 Presence of right artificial hip joint; Z86.73 Personal history of transient ischemic attack (TIA), and cerebral infarction without residual deficits; Z79.01 Long term (current) use of anticoagulants; Z68.36 Body mass index [BMI] 36.0-36.9, adult; Z79.899 Other long term (current) drug therapy

== ENCOUNTER 2020-02-17 15:56 | Emergency (ER) | payer MEDICARE, MEDICAID ==
[~2020-02-17] VITALS: Ht 154.9 cm; Wt 88.6 kg
[~2020-02-17 15:56] MED LIST changes: +ATOR1TAB21 PO; +DULO60CA35 PO; -TIZA2TAB4 PO; +TIZA2TAB6 PO; +TRAM50TA2 PO
[2020-02-17] MEDS ORDERED: ROPI3TAB3 (16:07)
[2020-02-17 16:31] LABS: BASO # 0.1 10^3/uL (0.0-0.2); BASO % 0.7 % (0.0-1.0); EOS # 0.1 10^3/uL (0.0-0.5); EOS % 1.3 % (0.0-3.0); HEMATOCRIT 40.1 % (36.0-47.0); HEMOGLOBIN 13.2 g/dl (12.0-15.5); LYMPH # 2.6 10^3/uL (1.5-5.0); LYMPH % 24.2 % (24.0-44.0); MEAN CORPUSCULAR HEMOGLOBIN 31.3 pg (27.0-33.0); MEAN CORPUSCULAR HGB CONC 32.9 g/dl (32.0-36.5); MONO # 0.5 10^3/uL (0.0-0.8); MONO % 4.7 % (0.0-5.0); NEUTROPHILS # 7.3 10^3/uL (1.5-8.5); NEUTROPHILS % 68.8 % (36.0-66.0); PLATELET COUNT, AUTOMATED 249 10^3/uL (150-450); RED BLOOD COUNT 4.22 10^6/uL (4.00-5.40); WHITE BLOOD COUNT 10.6 10^3/uL (4.0-10.0)
[2020-02-17 16:41] LABS: INR 1.13; PROTHROMBIN TIME 14.2 SECONDS (11.8-14.0)
--- NOTE | 2020-02-17 16:49 | ECGEPIP ---
[facility] - ED Test Date: 2020-02-17 Pat Name: DAGOBERTO HURLEY Department: Room: - Gender: Female Machine Folder: : 1945 Requested By: CRISTO FIGUEROA Order Number: [id number] Reading MD: Elizabeth Silverio Measurements Intervals [place] Rate: 81 P: 65 PA: 187 QRS: -67 QRSD: 161 T: 56 QT: 428 QTc: 499 Interpretive Statements SINUS RHYTHM RIGHT BUNDLE BRANCH BLOCK LEFT ANTERIOR FASCICULAR BLOCK PROBABLE SEPTAL MYOCARDIAL INFARCTION, OF INDETERMINATE AGE NSTTW abnormalities DECREASED RATE 01/19/20 Electronically Signed on 02-17-2020 16:48:50 EDT by Elizabeth Silverio
[2020-02-17 16:59] LABS: BLOOD UREA NITROGEN 17 MG/DL (7-18); CALCIUM LEVEL 8.8 MG/DL (8.8-10.2); CARBON DIOXIDE LEVEL 27 MEQ/L (21-32); CHLORIDE LEVEL 106 MEQ/L (98-107); CK-MB VALUE MASS 1.7 NG/ML (<3.6); CPK CREATINE PHOSPHOKINASE 82 U/L (26-192); CREATININE FOR GFR 0.92 MG/DL (0.55-1.30); GLOMERULAR FILTRATION RATE > 60.0 (>39); GLUCOSE, FASTING 152 MG/DL (70-100); MB/CK RELATIVE INDEX 2.07 (< OR =4); POTASSIUM SERUM 4.4 MEQ/L (3.5-5.1); SODIUM LEVEL 139 MEQ/L (136-145); TROPONIN I 0.05 NG/ML (< 0.10)
[2020-02-17 22:03] LABS: CK-MB VALUE MASS 1.5 NG/ML (<3.6); MB/CK RELATIVE INDEX 2.21 (< OR =4); TROPONIN I 0.05 NG/ML (< 0.10)
[2020-02-17 22:21] VITALS: BP 144/54
--- NOTE | 2020-02-17 23:00 | REP ---
PORTABLE CHEST X-RAY, SINGLE VIEW: HISTORY: Chest pain. COMPARISON STUDY: 12/02/2018 FINDINGS: Monitoring electrodes overlie the chest. The thoracic aorta is slightly tortuous. The heart is borderline in size, unchanged. The patient is status post lower cervical spine fusion surgery. No other bony abnormality is appreciated. No infiltrate is seen. Pulmonary vasculature is not increased. IMPRESSION: Borderline heart size. Otherwise, no acute disease. Electronically Signed by Juancarlos Hunter MD 02/18/2020 11:23 A
--- NOTE | 2020-02-19 08:12 | ECGEPIP ---
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
== END 2020-02-17 22:00 | disposition home or self-care (01) ==
LOC: M ED 15:56 → EDBD 15:56 → M ED 22:00
DX: R11.2 Nausea with vomiting, unspecified (principal); R42 Dizziness and giddiness; E11.9 Type 2 diabetes mellitus without complications; I45.2 Bifascicular block; Z79.899 Other long term (current) drug therapy; Z79.84 Long term (current) use of oral hypoglycemic drugs; Z79.01 Long term (current) use of anticoagulants

== ENCOUNTER 2020-04-25 12:14 | Emergency (ER) | payer OTHER, MEDICAID ==
[~2020-04-25] VITALS: Ht 154.9 cm; Wt 84.1 kg
[~2020-04-25 12:14] MED LIST changes: +AMLO1TAB24; +AMLO1TAB24 PO; -AMLO5TAB6; -AMLO5TAB6 PO; -COUM7.5T PO; +COUM7.5T6 PO; +ROPI3TAB3 PO
[2020-04-25 13:37] LABS: HEMATOCRIT 35.6 % (36.0-47.0); HEMOGLOBIN 11.5 g/dl (12.0-15.5); MEAN CORPUSCULAR HEMOGLOBIN 30.2 pg (27.0-33.0); MEAN CORPUSCULAR HGB CONC 32.3 g/dl (32.0-36.5); MEAN CORPUSCULAR VOLUME 93.4 fl (80.0-96.0); PLATELET COUNT, AUTOMATED 272 10^3/uL (150-450); RED BLOOD COUNT 3.81 10^6/uL (4.00-5.40); WHITE BLOOD COUNT 10.7 10^3/uL (4.0-10.0)
[2020-04-25 13:50] LABS: INR 1.33; PROTHROMBIN TIME 16.2 SECONDS (11.8-14.0)
[2020-04-25 13:55] LABS: BLOOD UREA NITROGEN 17 MG/DL (7-18); CALCIUM LEVEL 8.7 MG/DL (8.8-10.2); CARBON DIOXIDE LEVEL 24 MEQ/L (21-32); CHLORIDE LEVEL 108 MEQ/L (98-107); CREATININE FOR GFR 0.94 MG/DL (0.55-1.30); GLOMERULAR FILTRATION RATE > 60.0 (>39); GLUCOSE, FASTING 105 MG/DL (70-100); POTASSIUM SERUM 4.4 MEQ/L (3.5-5.1); SODIUM LEVEL 141 MEQ/L (136-145)
[2020-04-25 14:05] VITALS: BP 141/84
--- NOTE | 2020-04-25 15:14 | REP ---
REASON: Trauma. COMPARISON: 01/19/2020 There is no significant change from the prior exam. Postoperative changes and degenerative changes are noted, status quo. There is no acute fracture. No abnormal paraspinal soft tissue swelling has developed. IMPRESSION: No change from 01/19/2020. No acute fracture. Electronically Signed by Hermann Weiss DO 04/25/2020 04:28 P
--- NOTE | 2020-04-25 15:18 | REP ---
REASON: Trauma. COMPARISON: 01/19/2020 Once again, there is a large old right parietal lobe infarction. Encephalomalacia is stable in that region. There is no acute shift of the midline structures. There are no acute extra-axial fluid collections. There is no evidence of an acute intracranial hemorrhagic or nonhemorrhagic event. A small unchanged focus of encephalomalacia is also seen in the right occipital lobe region. There is no change in the imaged paranasal sinuses or mastoid air cells. There is no evidence of an acute fracture. IMPRESSION: No significant change from 01/19/2020. Evidence of an old right temporoparietal infarction and an old right occipital lobe infarction. There is no evidence of acute disease. Electronically Signed by Hermann Weiss DO 04/25/2020 04:28 P
--- NOTE | 2020-04-25 15:29 | REP ---
REASON: Trauma. AP pelvis and two views of the right hip were obtained. AP pelvis shows bilateral hip prostheses, which appear well seated and well approximated bilaterally with near anatomical alignment. There is no acute fracture, dislocation, or subluxation. Two views of the right hip show the prosthesis in its completeness. There is no abnormality noted. There is no acute fracture. No abnormal periprosthetic lucencies are identified. IMPRESSION: Bilateral hip prostheses. No acute disease. Electronically Signed by Hermann Weiss DO 04/25/2020 04:55 P
--- NOTE | 2020-04-25 15:31 | REP ---
REASON: Trauma. There are advanced degenerative changes seen with tricompartmental marginal osteophytosis and medial compartmental narrowing. Asymmetric patellofemoral joint space narrowing is also noted. The bones are demineralized. There is no evidence of an acute fracture. A sunrise view was not obtained, which limits the exam. A joint effusion cannot be ruled out. IMPRESSION: Chronic changes. Electronically Signed by Hermann Weiss DO 04/25/2020 04:56 P
== END 2020-04-25 14:08 | disposition home or self-care (01) ==
LOC: EDBD 12:14 → M ED 12:14
DX: S00.01XA Abrasion of scalp, initial encounter (principal); T14.8XXA Other injury of unspecified body region, initial encounter; W18.39XA Other fall on same level, initial encounter; Y92.410 Unspecified street and highway as the place of occurrence of the external cause; I10 Essential (primary) hypertension; E11.9 Type 2 diabetes mellitus without complications; K21.9 Gastro-esophageal reflux disease without esophagitis; Z79.899 Other long term (current) drug therapy; Z79.01 Long term (current) use of anticoagulants; F17.210 Nicotine dependence, cigarettes, uncomplicated

== ENCOUNTER 2020-05-06 13:32 | Inpatient (IN) | payer MEDICARE, OTHER, MEDICAID ==
[~2020-05-06 13:32] MED LIST changes: -AMLO1TAB24; -AMLO1TAB24 PO; +AMLO5TAB6; +AMLO5TAB6 PO; -ROPI3TAB3 PO
[2020-05-06] MEDS ORDERED: HEPARIN SOD (PORCINE) 5000UNITS/ML VIAL (J1644 PER 1000UNITS) ONE (22:36)
[2020-05-06] MEDS ORDERED: PERCOCET 5MG/325MG TAB ONE (22:36)
[2020-05-06] MEDS ORDERED: APIXABAN 5 MG TAB (ELIQUIS) ONE (22:36)
[2020-05-06] MEDS ORDERED: LOSARTAN 50MG TABLET ONE (22:36)
[2020-05-06] MEDS ORDERED: rOPINIRole 1MG TAB ONE (22:36)
[2020-05-06] MEDS ORDERED: PREGABALIN 50 MG CAP (LYRICA) ONE (22:36)
[2020-05-06] MEDS ORDERED: ATORVASTATIN 20 MG TAB ONE (22:36)
[2020-05-06] MEDS ORDERED: SENOKOT S TAB ONE (22:36)
[2020-05-06] MEDS ORDERED: ATORVASTATIN 20 MG TAB As Ordered ONE (22:36)
[2020-05-06] MEDS ORDERED: SENOKOT S TAB As Ordered ONE (22:36)
[2020-05-06] MEDS ORDERED: NICOTINE 14 MG/24 HR TRANSDERMAL ONE (22:36)
[2020-05-06] MEDS ORDERED: NICOTINE 14 MG/24 HR TRANSDERMAL As Ordered ONE (22:37)
[2020-05-06] MEDS ORDERED: HEPARIN SOD (PORCINE) 5000UNITS/ML VIAL (J1644 PER 1000UNITS) As Ordered ONE (22:37)
[2020-05-06] MEDS ORDERED: PREGABALIN 50 MG CAP (LYRICA) As Ordered ONE (22:38)
[2020-05-06] MEDS ORDERED: APIXABAN 5 MG TAB (ELIQUIS) As Ordered ONE (22:38)
[2020-05-06] MEDS ORDERED: LOSARTAN 50MG TABLET As Ordered ONE (22:39)
[2020-05-06] MEDS ORDERED: PERCOCET 5MG/325MG TAB As Ordered ONE (22:39)
[2020-05-06] MEDS ORDERED: rOPINIRole 1MG TAB As Ordered ONE (22:40)
[2020-05-07] MEDS ORDERED: APIXABAN 5 MG TAB (ELIQUIS) ONE ×2 (09:46→22:03)
[2020-05-07] MEDS ORDERED: SENNA 8.6 MG TAB (SENOKOT) ONE (09:46)
[2020-05-07] MEDS ORDERED: HumaLOG INSULIN (NovoLOG) PER UNIT ONE ×3 (09:46→18:02)
[2020-05-07] MEDS ORDERED: PREGABALIN 50 MG CAP (LYRICA) ONE ×2 (09:46→22:03)
[2020-05-07] MEDS ORDERED: LOSARTAN 50MG TABLET ONE ×2 (09:46→22:03)
[2020-05-07] MEDS ORDERED: DULoxetine 30 MG CAP (CYMBALTA) As Ordered ONE (09:46)
[2020-05-07] MEDS ORDERED: DULoxetine 30 MG CAP (CYMBALTA) ONE (09:46)
[2020-05-07] MEDS ORDERED: APIXABAN 5 MG TAB (ELIQUIS) As Ordered ONE ×2 (09:48→22:03)
[2020-05-07] MEDS ORDERED: SENNA 8.6 MG TAB (SENOKOT) As Ordered ONE (09:49)
[2020-05-07] MEDS ORDERED: PREGABALIN 50 MG CAP (LYRICA) As Ordered ONE ×2 (09:49→22:04)
[2020-05-07] MEDS ORDERED: LOSARTAN 50MG TABLET As Ordered ONE ×2 (09:49→22:04)
[2020-05-07] MEDS ORDERED: HumaLOG INSULIN (NovoLOG) PER UNIT As Ordered ONE ×3 (09:50→18:02)
[2020-05-07] MEDS ORDERED: PERCOCET 5MG/325MG TAB As Ordered ONE ×2 (18:18→22:04)
[2020-05-07] MEDS ORDERED: PERCOCET 5MG/325MG TAB ONE ×2 (18:18→22:03)
[2020-05-07] MEDS ORDERED: SENOKOT S TAB ONE (22:03)
[2020-05-07] MEDS ORDERED: ATORVASTATIN 20 MG TAB ONE (22:03)
[2020-05-07] MEDS ORDERED: rOPINIRole 1MG TAB ONE (22:03)
[2020-05-07] MEDS ORDERED: SENOKOT S TAB As Ordered ONE (22:03)
[2020-05-07] MEDS ORDERED: NICOTINE 14 MG/24 HR TRANSDERMAL ONE (22:03)
[2020-05-07] MEDS ORDERED: ATORVASTATIN 20 MG TAB As Ordered ONE (22:03)
[2020-05-07] MEDS ORDERED: rOPINIRole 1MG TAB As Ordered ONE (22:09)
[2020-05-07] MEDS ORDERED: NICOTINE 14 MG/24 HR TRANSDERMAL As Ordered ONE (22:09)
[2020-05-08] MEDS ORDERED: HumaLOG INSULIN (NovoLOG) PER UNIT ONE ×2 (09:41→12:59)
[2020-05-08] MEDS ORDERED: SENNA 8.6 MG TAB (SENOKOT) ONE (09:41)
[2020-05-08] MEDS ORDERED: DULoxetine 30 MG CAP (CYMBALTA) ONE (09:41)
[2020-05-08] MEDS ORDERED: PREGABALIN 50 MG CAP (LYRICA) ONE ×2 (09:41→21:00)
[2020-05-08] MEDS ORDERED: LOSARTAN 50MG TABLET ONE ×2 (09:41→21:00)
[2020-05-08] MEDS ORDERED: DULoxetine 30 MG CAP (CYMBALTA) As Ordered ONE (09:41)
[2020-05-08] MEDS ORDERED: APIXABAN 5 MG TAB (ELIQUIS) ONE (09:41)
[2020-05-08] MEDS ORDERED: HumaLOG INSULIN (NovoLOG) PER UNIT As Ordered ONE ×2 (09:42→12:59)
[2020-05-08] MEDS ORDERED: APIXABAN 5 MG TAB (ELIQUIS) As Ordered ONE (09:43)
[2020-05-08] MEDS ORDERED: PREGABALIN 50 MG CAP (LYRICA) As Ordered ONE ×2 (09:43→21:00)
[2020-05-08] MEDS ORDERED: LOSARTAN 50MG TABLET As Ordered ONE ×2 (09:44→21:00)
[2020-05-08] MEDS ORDERED: SENNA 8.6 MG TAB (SENOKOT) As Ordered ONE (09:44)
[2020-05-08] MEDS ORDERED: NICOTINE 14 MG/24 HR TRANSDERMAL As Ordered ONE (20:59)
[2020-05-08] MEDS ORDERED: ATORVASTATIN 20 MG TAB As Ordered ONE (20:59)
[2020-05-08] MEDS ORDERED: rOPINIRole 1MG TAB As Ordered ONE (21:00)
[2020-05-08] MEDS ORDERED: rOPINIRole 1MG TAB ONE (21:00)
[2020-05-08] MEDS ORDERED: PERCOCET 5MG/325MG TAB ONE (21:00)
[2020-05-08] MEDS ORDERED: NICOTINE 14 MG/24 HR TRANSDERMAL ONE (21:00)
[2020-05-08] MEDS ORDERED: ATORVASTATIN 20 MG TAB ONE (21:00)
[2020-05-08] MEDS ORDERED: PERCOCET 5MG/325MG TAB As Ordered ONE (21:03)
[2020-05-09] MEDS ORDERED: MUPIROCIN 2% OINT 22 GM TUBE As Ordered ONE (07:38)
[2020-05-09] MEDS ORDERED: LIDOCAINE 1% SDV 30ML VIAL As Ordered ONE (07:38)
[2020-05-09] MEDS ORDERED: ISOVUE-300 61% 50ML VIAL As Ordered ONE (07:39)
[2020-05-09] MEDS ORDERED: VANCOMYCIN 1000MG/20ML VIAL As Ordered ONE (07:39)
[2020-05-09] MEDS ORDERED: ceFAZolin 2 GM/D5W 50 ML IV BAG (J0690 PER 500MG) As Ordered ONE (09:22)
[2020-05-09] MEDS ORDERED: MIDAZOLAM INJ 2MG/2ML VIAL (J2250 PER 1MG) As Ordered ONE (09:47)
[2020-05-09] MEDS ORDERED: fentaNYL 100 MCG/2 ML INJECTION (J3010) As Ordered ONE (09:48)
[2020-05-09] MEDS ORDERED: propofoL 200 MG/20 ML VIAL As Ordered ONE ×2 (09:49→12:17)
[2020-05-09] MEDS ORDERED: ceFAZolin 1GM VIAL (J0690 PER 500MG) As Ordered ONE (11:19)
[2020-05-09] MEDS ORDERED: HumaLOG INSULIN (NovoLOG) PER UNIT As Ordered ONE (17:53)
[2020-05-09] MEDS ORDERED: ACETAMINOPHEN TAB 650MG DOSE (2X325MG) As Ordered ONE (17:54)
[2020-05-09] MEDS ORDERED: NICOTINE 14 MG/24 HR TRANSDERMAL As Ordered ONE (20:17)
[2020-05-09] MEDS ORDERED: ATORVASTATIN 20 MG TAB As Ordered ONE (20:17)
[2020-05-09] MEDS ORDERED: rOPINIRole 1MG TAB As Ordered ONE (20:18)
[2020-05-09] MEDS ORDERED: PREGABALIN 50 MG CAP (LYRICA) As Ordered ONE (20:18)
[2020-05-09] MEDS ORDERED: LOSARTAN 50MG TABLET As Ordered ONE (20:18)
[2020-05-10] MEDS ORDERED: SENOKOT S TAB As Ordered ONE ×2 (10:09→20:47)
[2020-05-10] MEDS ORDERED: DULoxetine 30 MG CAP (CYMBALTA) As Ordered ONE (10:09)
[2020-05-10] MEDS ORDERED: PREGABALIN 50 MG CAP (LYRICA) As Ordered ONE ×2 (10:10→20:47)
[2020-05-10] MEDS ORDERED: APIXABAN 5 MG TAB (ELIQUIS) As Ordered ONE ×2 (10:10→20:47)
[2020-05-10] MEDS ORDERED: LOSARTAN 50MG TABLET As Ordered ONE ×2 (10:10→20:48)
[2020-05-10] MEDS ORDERED: HumaLOG INSULIN (NovoLOG) PER UNIT As Ordered ONE (17:04)
[2020-05-10] MEDS ORDERED: ATORVASTATIN 20 MG TAB As Ordered ONE (20:47)
[2020-05-10] MEDS ORDERED: NICOTINE 14 MG/24 HR TRANSDERMAL As Ordered ONE (20:47)
[2020-05-10] MEDS ORDERED: ASCORBIC ACID 250 MG TAB As Ordered ONE (20:48)
[2020-05-10] MEDS ORDERED: rOPINIRole 1MG TAB As Ordered ONE (20:48)
[2020-05-11] MEDS ORDERED: DULoxetine 30 MG CAP (CYMBALTA) As Ordered ONE (09:05)
[2020-05-11] MEDS ORDERED: PREGABALIN 50 MG CAP (LYRICA) As Ordered ONE (09:06)
[2020-05-11] MEDS ORDERED: LOSARTAN 50MG TABLET As Ordered ONE (09:06)
[2020-05-11] MEDS ORDERED: APIXABAN 5 MG TAB (ELIQUIS) As Ordered ONE (09:06)
[2020-05-11] MEDS ORDERED: ASCORBIC ACID 250 MG TAB As Ordered ONE (09:06)
[2020-05-11] MEDS ORDERED: HumaLOG INSULIN (NovoLOG) PER UNIT As Ordered ONE ×2 (09:08→13:20)
--- NOTE | 2020-06-09 16:13 | CR ---
DATE OF CONSULTATION: 05/08/2020 REFERRING PHYSICIAN: Janneth Crabtree MD REASON FOR CONSULTATION: High grade atrioventricular (AV) block, Mobitz type 2 AV block, intermittent third-degree AV block with syncope. For consideration of implanting dual-chamber pacemaker. HISTORY OF PRESENT ILLNESS: Hafsa Jimenez is a pleasant, 75-year-old woman who is known to have right bundle branch block with left anterior fascicular block. She began passing out back around early February 2020. She has passed out a few times and has had occasional episodes of pre-syncope. She had a 30-day event monitor placed 02/13/2020 which showed sinus rhythm with right bundle branch block morphology noted over the 30 day monitoring session. No symptomatic patient triggered events or positive auto-triggered events noted over the study duration. She was admitted to the hospital on 05/06/2020 because of recurrent dizziness episodes of generalized weakness that began the day of her presentation. While on telemetry, she has been having episodes of Mobitz type 2 second-degree AV block, high-grade AV block, and some episodes of complete heart block with periods of asystole. She has a history of a stroke about 2 years ago. She has systemic hypertension, obesity, type 2 diabetes, hyperlipidemia, and peripheral neuropathy. Patient denies any chest pain or chest discomfort with or without activity. No exertional dyspnea. No orthopnea, paroxysmal nocturnal dyspnea (PND), leg or ankle swelling. No palpitations. No intermittent claudication. History of stroke 2 years ago. She is maintained on Eliquis. PAST MEDICAL AND SURGICAL HISTORY: Hypercholesterolemia/hyperlipidemia, obesity, type 2 diabetes, peripheral neuropathy, systemic hypertension. Four prior back surgeries. Two hip surgeries. Two prior sections. Stroke 2 years ago. ALLERGIES: No known adverse drug reactions. FAMILY HISTORY: Diabetes on her mothers side. Patient reports family history of various family members who have had pacemakers. SOCIAL HISTORY: Lives alone. Smoker one pack per day. No alcohol. No illicit drugs. REVIEW OF SYSTEMS: Fatigue and weakness. Pre-syncope and syncope as noted above. Peripheral neuropathy. All other review of systems questions negative. MEDICATIONS PRIOR TO ADMISSION: - Eliquis 5 mg twice a day (presently on hold) - losartan 50 mg twice a day - Jenemet 50/500 mg one twice a day - duloxetine 60 mg daily - pregabalin 50 mg twice a day - atorvastatin 20 mg daily - ropinirole 3 mg daily - Tylenol 650 mg every 4 hours as needed for pain PHYSICAL EXAMINATION: Vital signs from this morning show blood pressure 114/60, temperature 96.7, pulse 44, respiratory rate 19, oxygen saturation 97% on room, sinus rhythm on monitor. Pleasant, obese, woman who appears her chronologic age who is not in any respiratory or psychologic distress. No gross head, face, or skeletal deformities. No conjunctival pallor, sclerae icterus, or xanthelasmas. Edentulous. Oral mucosa is moist and without pallor or cyanosis. Jugular venous pulsations were at 3 cm. Trachea midline. No palpable thyroid. No clubbing of the nail beds, cyanosis, or splinter hemorrhages. No skin lesions, skin pallor, or icterus. Oriented to person, place, and time. Mood and affect normal. Curvature of the spine normal. Gait was not tested as patient is presently on bed rest. Gross motor strength and tone were normal. Respiratory expansion and effort were good. No crackles or wheezes. No dullness to percussion. No palpable apex beat. No parasternal lifts, heaves, thrills, or palpable heart sounds. First heart sound normal. Second heart sound was widely split. No S3 or S4. No murmurs appreciated. Carotids were normal in volume and contour without bruits. No palpable abdominal aorta but difficult to palpate due to abdominal obesity. No abdominal bruits. Femoral pulses normal. Pedal pulses normal. No peripheral edema. No varicose veins. Abdomen was obese, soft, nontender with normal bowel sounds. No hepatosplenomegaly or other organomegaly. Liver span difficult to assess due to abdominal obesity. Stool for occult blood not presently indicated. 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 Preliminary report of carotid ultrasound 05/07/2020 reported mild mixed atheromatous plaquing bilaterally in the carotids with less than 50% narrowing range. No significant stenosis or effusion. Single view chest x-ray 11/06/2019 reported no acute cardiopulmonary abnormality. No pleural effusion. No pneumothorax. Lungs unremarkable. Heart and mediastinum unremarkable. No cardiomegaly. Mild calcification of the thoracic aorta. Degenerative changes of the spine. Head CT preliminary report 05/06/2020 reported a low density right temporoparietal region and left basal ganglia suggestive of acute/subacute infarction, but possibly early chronic changes. No bleed. ASSESSMENT AND RECOMMENDATIONS: 1. Intermittent complete heart block with asystole, intermittent Mobitz type 2 second-degree AV block and intermittent high-grade AV block. Resultant pre- syncope and syncope. Patient qualifies for implantation of a permanent dual- chamber pacemaker. Pacemaker implantation was discussed with the patient including the option of no pacemaker (increased risk for sudden cardiac and recurrent syncope and its consequences such as bodily harm resulting from syncope). Risks of pacemaker implantation explained to the patient included, but not all inclusive: infection (1%), bleeding, pneumothorax (1%), adverse drug reaction, cardial dysrhythmias, lead dysfunction, prolonged healing, cardiac perforation with cardiac tamponade (12/999). I explained to the patient that she is at higher risk for infection due to presence of diabetes. I explained that she is at higher risk for bleeding due to recent use of Eliquis. Patient is agreeable to undergo implantation of a permanent dual-chamber pacemaker and signed the consent form. The plan will be to place the permanent pacemaker tomorrow. Continue to hold Eliquis for now. 2. Right bundle branch block with left anterior fascicular block (bifascicular block). This condition has now been demonstrated to be associated with intermittent high-grade AV block/complete heart block and she will get a pacemaker tomorrow. 3. Recurrent syncope. Syncope due to recurrent high-grade AV block/third- degree AV block. She will get a permanent pacemaker tomorrow. 4. Systemic hypertension. Blood pressure controlled. Continue losartan at the current dosage. MTDD
== END 2020-05-11 15:27 | disposition home or self-care (01) | DRG 244 ==
LOC: M ED 13:32 → M PCU 15:20
PROVIDERS: ADMIT General Practice; ATTEND General Practice
PROC: 0JH606Z Insertion of Pacemaker, Dual Chamber into Chest Subcutaneous Tissue and Fascia, Open Approach (ICD-10-PCS; principal; 2020-05-09)
PROC: 02HK0JZ Insertion of Pacemaker Lead into Right Ventricle, Open Approach (ICD-10-PCS; 2020-05-09)
PROC: 02H60JZ Insertion of Pacemaker Lead into Right Atrium, Open Approach (ICD-10-PCS; 2020-05-09)
DX: I44.2 Atrioventricular block, complete (principal); R29.6 Repeated falls; I45.2 Bifascicular block; E11.51 Type 2 diabetes mellitus with diabetic peripheral angiopathy without gangrene; E66.9 Obesity, unspecified; E78.5 Hyperlipidemia, unspecified; I10 Essential (primary) hypertension; F17.200 Nicotine dependence, unspecified, uncomplicated; J44.9 Chronic obstructive pulmonary disease, unspecified; F32.9 Major depressive disorder, single episode, unspecified; G25.81 Restless legs syndrome; Z79.899 Other long term (current) drug therapy; Z79.01 Long term (current) use of anticoagulants; Z86.73 Personal history of transient ischemic attack (TIA), and cerebral infarction without residual deficits

== ENCOUNTER 2020-06-01 15:54 | Emergency (ER) | payer OTHER, MEDICAID ==
[~2020-06-01] VITALS: Ht 154.9 cm; Wt 88.6 kg
[~2020-06-01 15:54] MED LIST changes: +AMLO1TAB24; +AMLO1TAB24 PO; -AMLO5TAB6; -AMLO5TAB6 PO; +ROPI3TAB3 PO
[2020-06-01] MEDS ORDERED: NS 1,000 ML IV ONE (17:00)
--- NOTE | 2020-06-01 17:15 | REPVR ---
PROCEDURE INFORMATION: Exam: CT Head Without Contrast Exam date and time: 06/01/2020 4:53 PM Age: 75 years old Clinical indication: Syncope and collapse TECHNIQUE: Imaging protocol: Computed tomography of the head without contrast. Radiation optimization: All CT scans at this facility use at least one of these dose optimization techniques: automated exposure control; mA and/or kV adjustment per patient size (includes targeted exams where dose is matched to clinical indication); or iterative reconstruction. COMPARISON: CT Head without contrast 04/25/2020 12:25 PM FINDINGS: Brain: There are again areas of encephalomalacia in the right temporoparietal and occipital regions, relating to prior infarcts. A small lacunar infarct again involves the right thalamus. There is no evidence for large acute cortical infarct. Lucencies in the white matter, most suggestive of chronic microvascular ischemic disease, do not appear significantly changed. No intracranial hemorrhage or extraaxial collection is identified. There is no significant intracranial mass effect. Ventricles: The ventricles and sulci are stable in configuration. Bones/joints: Unremarkable. No acute fracture. Sinuses: Visualized sinuses are unremarkable. No fluid levels. Mastoid air cells: Visualized mastoid air cells are well aerated. Vasculature: Intracranial atherosclerotic vascular calcifications are again present. Soft tissues: Unremarkable. IMPRESSION: No CT evidence for acute intracranial abnormality. Electronically signed by: Kermit Nunez On 06/01/2020 17:15:16 PM
--- NOTE | 2020-06-01 17:16 | REPVR ---
PROCEDURE INFORMATION: Exam: XR Chest, 1 View Exam date and time: 06/01/2020 4:36 PM Age: 75 years old Clinical indication: Other: Dizziness; Additional info: Syncope/near-syncope TECHNIQUE: Imaging protocol: XR of the chest Views: 1 view. COMPARISON: CR Chest, 2 view PA, Lat 05/10/2020 8:18 AM (report not provided) FINDINGS: Tubes, catheters and devices: A left-sided pacemaker is again present. Lungs: Unremarkable. No consolidation. Pleural space: Unremarkable. No pleural effusion. No pneumothorax. Heart/Mediastinum: The cardiomediastinal silhouette is fairly stable in appearance, allowing for differences in technique. Bones/joints: There are again operative changes of the cervical spine. Degenerative changes again involve the spine. Soft tissues: Previous skin jordyn have been removed. IMPRESSION: No evidence for acute pulmonary disease. Electronically signed by: Kermit Nunez On 06/01/2020 17:16:49 PM
[2020-06-01 18:30] LABS: BASO # 0.1 10^3/uL (0.0-0.2); BASO % 0.6 % (0.0-1.0); EOS # 0.3 10^3/uL (0.0-0.5); EOS % 2.8 % (0.0-3.0); HEMATOCRIT 33.8 % (36.0-47.0); HEMOGLOBIN 11.1 g/dl (12.0-15.5); LYMPH # 3.7 10^3/uL (1.5-5.0); LYMPH % 36.6 % (24.0-44.0); MEAN CORPUSCULAR HEMOGLOBIN 30.3 pg (27.0-33.0); MEAN CORPUSCULAR HGB CONC 32.8 g/dl (32.0-36.5); MEAN CORPUSCULAR VOLUME 92.3 fl (80.0-96.0); MONO # 0.6 10^3/uL (0.0-0.8); MONO % 5.8 % (0.0-5.0); NEUTROPHILS # 5.5 10^3/uL (1.5-8.5); NEUTROPHILS % 53.9 % (36.0-66.0); PLATELET COUNT, AUTOMATED 282 10^3/uL (150-450); RED BLOOD COUNT 3.66 10^6/uL (4.00-5.40); WHITE BLOOD COUNT 10.1 10^3/uL (4.0-10.0)
[2020-06-01 18:46] LABS: INR 1.08; PROTHROMBIN TIME 14.2 SECONDS (11.8-14.0)
[2020-06-01 18:47] LABS: CK-MB VALUE MASS 1.4 NG/ML (<3.6); CREATININE FOR GFR 1.04 MG/DL (0.55-1.30); FREE T4 0.9 NG/DL (0.76-1.46); MAGNESIUM LEVEL 2.2 MG/DL (1.8-2.4); MB/CK RELATIVE INDEX 1.87 (< OR =4); PARTIAL THROMBOPLASTIN TIME 34.8 SECONDS (25.0-38.4); POTASSIUM SERUM 4.2 MEQ/L (3.5-5.1); THYROID STIMULATING HORMONE 1.35 uIU/ML (0.358-3.740); TROPONIN I 0.06 NG/ML (< 0.10)
[2020-06-01] MEDS ORDERED: DULO30CA9 PO (20:25)
[2020-06-01 21:00] VITALS: BP 118/58
--- NOTE | 2020-06-21 16:08 | ECGEPIP ---
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
== END 2020-06-01 21:00 | disposition home or self-care (01) ==
LOC: M ED 15:54
DX: I95.1 Orthostatic hypotension (principal); E11.40 Type 2 diabetes mellitus with diabetic neuropathy, unspecified; I10 Essential (primary) hypertension; E78.5 Hyperlipidemia, unspecified; Z95.0 Presence of cardiac pacemaker; Z79.899 Other long term (current) drug therapy; Z79.01 Long term (current) use of anticoagulants; F17.210 Nicotine dependence, cigarettes, uncomplicated

== ENCOUNTER 2020-06-06 09:00 | Emergency (ER) | payer OTHER, MEDICAID ==
[~2020-06-06] VITALS: Ht 154.9 cm; Wt 88.6 kg
[~2020-06-06 09:00] MED LIST changes: +DULO30CA9 PO
[2020-06-06] MEDS ORDERED: ACETAMINOPHEN TAB 650MG DOSE (2X325MG) PO ONE (09:45)
[2020-06-06] MEDS ORDERED: ACETAMINOPHEN 500 MG TAB PO ONE (09:45)
[2020-06-06] MEDS ORDERED: LIDOCAINE 5% (LIDODERM) PATCH TD ONE (09:45)
[2020-06-06] MEDS ORDERED: NORCO, ANEXSIA 5/325MG TABLET (HYDROcodone/ACETAMINOPHEN) PO ONE (09:45)
[2020-06-06 11:57] VITALS: BP 137/69
[2020-06-06] MEDS ORDERED: LIDO5DIS41 TD (12:02)
[2020-06-06] MEDS ORDERED: **NOTE PATIENT COMMENT** MISC XX SCH (21:00)
== END 2020-06-06 12:39 | disposition home or self-care (01) ==
LOC: EDBD 09:00 → M ED 09:00
DX: G89.29 Other chronic pain (principal); M54.5 Low back pain; E11.9 Type 2 diabetes mellitus without complications; I10 Essential (primary) hypertension; E78.9 Disorder of lipoprotein metabolism, unspecified; E66.9 Obesity, unspecified; Z86.73 Personal history of transient ischemic attack (TIA), and cerebral infarction without residual deficits; Z79.899 Other long term (current) drug therapy; Z79.01 Long term (current) use of anticoagulants; F17.210 Nicotine dependence, cigarettes, uncomplicated

== ENCOUNTER 2020-07-09 09:53 | Emergency (ER) | payer OTHER, MEDICAID ==
[~2020-07-09] VITALS: Ht 154.9 cm; Wt 88.6 kg
[~2020-07-09 09:53] MED LIST changes: +LIDO5DIS41 TD
[2020-07-09] MEDS ORDERED: ACETAMINOPHEN 500 MG TAB PO ONE (10:15)
--- NOTE | 2020-07-09 12:09 | REPVR ---
PROCEDURE INFORMATION: Exam: XR Lumbosacral Spine, 4 or 5 Views Exam date and time: 07/09/2020 10:11 AM Age: 75 years old Clinical indication: Low back pain; Additional info: Trauma TECHNIQUE: Imaging protocol: XR of the lumbosacral spine, 4 or 5 views. COMPARISON: MRI-LS SPINE W/O FOLL WITH CON 07/18/2017 2:03 PM FINDINGS: Vertebrae: Extensive laminectomy is seen throughout the entire lumbar spine and lower dorsal spine. Extensive degenerative disc disease identified throughout the lumbar spine most severe at L2/3. There is minimal stable wedging of L1 since the MRI. There is no evidence of listhesis or acute fracture. Severe arthritic changes seen in the posterior elements. Other bones/joints: There are bilateral hip replacements. Soft tissues: Unremarkable. Vasculature: There are vascular calcifications without evidence of definite aneurysm. IMPRESSION: Extensive arthritic and postoperative changes. Chronic appearing anterior compression deformity L1 Electronically signed by: Devyn Allen On 07/09/2020 12:09:11 PM
[2020-07-09 13:12] VITALS: O2SAT 89
[2020-07-09 14:00] VITALS: BP 145/97
== END 2020-07-09 14:17 | disposition home or self-care (01) ==
LOC: M ED 09:53
DX: S30.0XXA Contusion of lower back and pelvis, initial encounter (principal); W01.0XXA Fall on same level from slipping, tripping and stumbling without subsequent striking against object, initial encounter; Y92.9 Unspecified place or not applicable; Y99.9 Unspecified external cause status; M17.0 Bilateral primary osteoarthritis of knee; I50.32 Chronic diastolic (congestive) heart failure; E11.40 Type 2 diabetes mellitus with diabetic neuropathy, unspecified; I11.0 Hypertensive heart disease with heart failure; Z86.73 Personal history of transient ischemic attack (TIA), and cerebral infarction without residual deficits; Z79.01 Long term (current) use of anticoagulants; Z79.899 Other long term (current) drug therapy

== ENCOUNTER 2020-07-12 00:28 | Inpatient (IN) | payer OTHER, MEDICAID ==
[~2020-07-12] VITALS: Ht 154.9 cm; Wt 91.4 kg
--- NOTE | 2020-07-12 01:49 | REPVR ---
PROCEDURE INFORMATION: Exam: CT Head Without Contrast Exam date and time: 07/12/2020 1:29 AM Age: 75 years old Clinical indication: Injury or trauma; Fall; Blunt trauma (contusions or hematomas); Additional info: Fall on chrisis TECHNIQUE: Imaging protocol: Computed tomography of the head without contrast. Radiation optimization: All CT scans at this facility use at least one of these dose optimization techniques: automated exposure control; mA and/or kV adjustment per patient size (includes targeted exams where dose is matched to clinical indication); or iterative reconstruction. COMPARISON: CT Head without contrast 06/01/2020 4:48 PM FINDINGS: Brain: Decreased attenuation of the supratentorial white matter is likely secondary to chronic microvascular ischemia. No acute intracranial hemorrhage. Chronic right parietal and occipital lobe infarcts. Cerebral ventricles: Ventricular and subarachnoid spaces are age appropriate. Bones/joints: Unremarkable. No acute fracture. Paranasal sinuses: Visualized sinuses are unremarkable. No fluid levels. Mastoid air cells: Mild partial opacification of the mastoid air cells. Vasculature: Intracranial vascular calcification. Soft tissues: Right posterior scalp soft tissue injury. IMPRESSION: No acute intracranial abnormality. Electronically signed by: Galo Joseph On 07/12/2020 01:49:06 AM
--- NOTE | 2020-07-12 01:50 | REPVR ---
PROCEDURE INFORMATION: Exam: XR Chest, 1 View Exam date and time: 07/12/2020 1:42 AM Age: 75 years old Clinical indication: Other: Weakness TECHNIQUE: Imaging protocol: XR of the chest Views: 1 view. COMPARISON: CR PORTABLE CHEST X-RAY 06/01/2020 4:55 PM FINDINGS: Tubes, catheters and devices: Stable left chest cardiac device. Lungs: Mild right basilar atelectasis and/or infiltrate. Pleural space: Unremarkable. No pleural effusion. No pneumothorax. Heart/Mediastinum: Stable cardiac silhouette. Vasculature: Aortic calcification. Bones/joints: Postoperative change involving the cervical spine. There are degenerative changes involving the spine and shoulders. IMPRESSION: Mild right basilar atelectasis and/or infiltrate. Electronically signed by: Galo Joseph On 07/12/2020 01:50:17 AM
[2020-07-12 01:54] LABS: BASO # 0.1 10^3/uL (0.0-0.2); BASO % 0.5 % (0.0-1.0); EOS # 0.3 10^3/uL (0.0-0.5); EOS % 2.8 % (0.0-3.0); HEMATOCRIT 35.3 % (36.0-47.0); LYMPH # 2.7 10^3/uL (1.5-5.0); LYMPH % 24.9 % (24.0-44.0); MEAN CORPUSCULAR HEMOGLOBIN 28.2 pg (27.0-33.0); MEAN CORPUSCULAR HGB CONC 31.2 g/dl (32.0-36.5); MEAN CORPUSCULAR VOLUME 90.5 fl (80.0-96.0); MONO # 0.6 10^3/uL (0.0-0.8); NEUTROPHILS # 7.1 10^3/uL (1.5-8.5); NEUTROPHILS % 65.5 % (36.0-66.0); PLATELET COUNT, AUTOMATED 294 10^3/uL (150-450); WHITE BLOOD COUNT 10.7 10^3/uL (4.0-10.0)
[2020-07-12 02:06] LABS: INR 1.13; PROTHROMBIN TIME 14.7 SECONDS (12.5-14.3)
[2020-07-12 02:07] LABS: PARTIAL THROMBOPLASTIN TIME 31.5 SECONDS (24.2-38.5)
[2020-07-12 02:27] LABS: CALCIUM LEVEL 8.9 MG/DL (8.8-10.2); CREATININE FOR GFR 1.01 MG/DL (0.55-1.30); GLOMERULAR FILTRATION RATE 56.9 (>39); MB/CK RELATIVE INDEX 2.04 (< OR =4); POTASSIUM SERUM 4.2 MEQ/L (3.5-5.1); TROPONIN I 0.08 NG/ML (< 0.10)
[2020-07-12] MEDS ORDERED: ACETAMINOPHEN TAB 650MG DOSE (2X325MG) PO ONE (03:15)
--- NOTE | 2020-07-12 04:21 | HPEPDOC ---
[facility] Medical History & Physical Date of Admission Jul 12, 2020 Date of Service: Jul 12, 2020 Primary Care Physician: Jr Stauffer Collins Attending Physician: SOLA HOBSON MD History and Physical TIME OF SERVICE: 430am CHIEF COMPLAINT: Falls HISTORY OF PRESENT ILLNESS: This 75-year-old female came into the hospital for evaluation after falling despite having her walker. She has has chronic knee pain and attributes the fall to her left knee "giving out". She denied having any dizziness, blurry vision, shortness of breath, chest pain, palpitations, or back pain, prior to the fall. She also denies having fevers, chills, coughing, vomiting, diarrhea, or lower extremity swelling recently. She last attended physical therapy in May shortly after her pacemaker was placed. 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 HOME MEDICATIONS: Please see below. PHYSICAL EXAMINATION: Vital Signs Date Time Temp Pulse Resp B/P (MAP) Pulse Ox O2 Delivery O2 Flow Rate FiO2 01/19/20 19:57 96.7 88 18 126/77 (93) 97 Room Air GEN: well-nourished / well developed/ NAD INTEGUMENT: not flushed/ not jaundice / post surgical scar at mid-back CVS: RRR/NMRG/radial pulses intact / no lower extremity edema LUNGS: able to speak full sentences without stopping to take a breath / no coughing / lungs are clear to auscultation bilaterally on room air ABDOMEN: Contour (obese) MSK/EXTREMITIES: NCAT NEURO: CN 2-12 are grossly intact / speech is not dysarthric PSYCH: alert and oriented to person place and time/ able to understand and follow all commands LABORATORY DATA: 07/12/20 01:41 Immature Granulocyte % (Auto) 0.3, Neutrophils (%) (Auto) 65.5, Lymphocytes (%) (Auto) 24.9, Monocytes (%) (Auto) 6.0H, Eosinophils (%) (Auto) 2.8, Basophils (%) (Auto) 0.5, Neutrophils # (Auto) 7.1, Lymphocytes # (Auto) 2.7, Monocytes # (Auto) 0.6, Eosinophils # (Auto) 0.3, Basophils # (Auto) 0.1, Nucleated Red Blood Cells % (auto) 0.0, Prothrombin Time 14.7H, Prothromb Time International Ratio 1.13, Activated Partial Thromboplast Time 31.5, Anion Gap 6L, Glomerular Filtration Rate 56.9, Calcium Level 8.9, Total Creatine Kinase 98, Creatine Kinase MB 2.0, Creatine Kinase MB Relative Index 2.04, Troponin I 0.08 07/12/20 03:58: Urine Color YELLOW, Urine Appearance CLOUDYH, Urine pH 6.0, Urine Specific [place] 1.013, Urine Protein NEGATIVE, Urine Glucose (UA) NEGATIVE, Urine Ketones NEGATIVE, Urine Blood NEGATIVE, Urine Nitrite NEGATIVE, Urine Bilirubin NEGATIVE, Urine Urobilinogen 0.2, Urine Leukocyte Esterase NEGATIVE, Urine WBC (Auto) 2, Urine RBC (Auto) 5H, Urine Hyaline Casts (Auto) 0, Urine Bacteria (Auto) NEGATIVE, Urine Squamous Epithelial Cells 2, Urine Transitional Epithelial Cells <1, Urine Mucus (Auto) SMALL, Urine Sperm (Auto) IMAGING: CT head "IMPRESSION: No acute intracranial abnormality." Chest x-ray "IMPRESSION: Mild right basilar atelectasis and/or infiltrate." ASSESSMENT: Ms. Fry is a 74-year-old with NIDDM with neuropathy, unsteady gait requiring walker, OA, Pacemaker placement, CVA, HFpEF, chronic HTN, and class II obesity who will be admitted for evaluation of falls. PLAN: 1. Mechanical Fall Likely due to left knee weakness and OA. BLE neuropathy likely also makes it difficult for her to keep her balance. She denies having any prodromal symptoms, on telemetry her pacemaker is capturing beats, her trop is wnl and the CT of the head is neg Plan: Admit to medical floor / orthostas x 1 /fall precautions/physical therapy consult to determine if she is a candidate for inpatient rehabilitation / fle tor patch for left knee pain / hold atorvastatin which can cause falls in the elderly / acetaminophen & duloxetine ? for OA 2. NN Anemia Hg at baseline Plan: f/u Hg 3 NIDDM2 w neuropathy Plan:diabetic diet / f/u accuchecks & A1C / hypoglycemia protocol / sliding scale insulin / hold oral anti-glycemics / pregabalin for neuropathy 4. hx of CVA Plan: Eliquis 5. Chronic HTN Plan: amlodipine & losartan 6. Class 2 Obesity w BMI if 36.97 and co-existing DM complicates care. Plan: f/u A1C / f/u w PCP for sleep apnea screening DVT PROPHYLAXIS: n/a on Eliquis DISPOSITION: possible placement after more than 2 midnight's stay Home Medications Scheduled Amlodipine Besylate (Amlodipine Besylate) 5 Mg Tablet, 5 MG PO DAILY Apixaban (Eliquis) 5 Mg Tablet, 5 MG PO BID Atorvastatin Calcium (Atorvastatin Calcium) 20 Mg Tablet, 20 MG PO QHS Duloxetine Hcl (Duloxetine HCl) 30 Mg Capsule.dr, 30 MG PO DAILY Lidocaine (Lidocaine) 5% Adh..patch, 1 PATCH TOP Q12H lower back Losartan Potassium (Losartan Potassium) 50 Mg Tab, 50 MG PO BID Pregabalin (Lyrica) 50 Mg Capsule, 50 MG PO BID Ropinirole HCl (Ropinirole HCl) 3 Mg Tablet, 3 MG PO QHS Sitagliptin Phos/Metformin HCl (Janumet Xr 50-500 mg Tablet) 1 Tab Tab, 1 TAB PO BID Scheduled PRN Acetaminophen (Acetaminophen) 325 Mg Tablet, 650 MG PO Q4H PRN for PAIN / FEVER Tizanidine HCl (Tizanidine HCl) 2 Mg Tablet, 2 MG PO BID PRN for MUSCLE SPASMS Allergies Coded Allergies: No Known Allergies (Verified , 03/07/18) A-FIB/CHADSVASC A-FIB History Current/History of A-Fib/PAF?: No Current PO Anticoag Therapy: No SOLA HOBSON MD Jul 12, 2020 04:21
[2020-07-12] MEDS ORDERED: MAALOX 30 ML SUSP *UDC PO PRN (04:30)
[2020-07-12] MEDS ORDERED: MOM 30ML SUSPENSION UDC PO PRN (04:30)
[2020-07-12] MEDS ORDERED: GLUCAGON INJ 1MG VIAL SC PRN (04:30)
[2020-07-12] MEDS ORDERED: GLUCOSE 4GM CHEW TABLET PO PRN (04:30)
[2020-07-12] MEDS ORDERED: DEXTROSE 50% 50 ML SYRINGE IV PRN (04:30)
[2020-07-12] MEDS ORDERED: DULO30CA9 PO (04:34)
[2020-07-12] MEDS ORDERED: AMLO1TAB24 PO (04:34)
[2020-07-12] MEDS ORDERED: LIDO5TD TOP (04:34)
[2020-07-12] MEDS ORDERED: ATOR1TAB21 PO (04:34)
[2020-07-12 04:47] LABS: HEMOGLOBIN A1c 6.5 %
[2020-07-12 05:14] VITALS: BP 141/78
[2020-07-12] MEDS ORDERED: PILL CUTTER 1 EACH XX PRN (05:30)
--- NOTE | 2020-07-12 05:57 | ECGEPIP ---
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
--- NOTE | 2020-07-12 08:34 | IPNPDOC ---
Date Seen The patient was seen on 07/12/20. Progress Note RIGHT KNEE OA -pt was admitted 07/12/20 for recurrent falls due to her right knee buckling zulay gwen by Dr. Ho Daniels as outpt with steroid injections. -Xray right knee pa and lateral ordered. -Ortho consulted to evaluate for knee replacement. -if knee replacement is warranted, will need to hold eliquis for CVA, and start on iv heparin gtt. VS, I&O, 24H, Fishbone Vital Signs/I&O Vital Signs Date Time Temp Pulse Resp B/P (MAP) Pulse Ox O2 Delivery O2 Flow Rate FiO2 07/12/20 05:14 97.1 85 19 141/78 (99) 95 Room Air I&O- Last 24 Hours up to 6 AM 07/12/20 06:00 Intake Total 50 ml Output Total 0 ml Balance 50 ml Laboratory Data 24H LABS Laboratory Tests 2 07/12/20 01:41: Immature Granulocyte % (Auto) 0.3, Neutrophils (%) (Auto) 65.5, Lymphocytes (%) (Auto) 24.9, Monocytes (%) (Auto) 6.0H, Eosinophils (%) (Auto) 2.8, Basophils (%) (Auto) 0.5, Neutrophils # (Auto) 7.1, Lymphocytes # (Auto) 2.7, Monocytes # (Auto) 0.6, Eosinophils # (Auto) 0.3, Basophils # (Auto) 0.1, Nucleated Red Blood Cells % (auto) 0.0, Prothrombin Time 14.7H, Prothromb Time International Ratio 1.13, Activated Partial Thromboplast Time 31.5, Anion Gap 6L, Glomerular Filtration Rate 56.9, Estimated Mean Plasma Glucose 140H, Hemoglobin A1c 6.5, Calcium Level 8.9, Total Creatine Kinase 98, Creatine Kinase MB 2.0, Creatine Kinase MB Relative Index 2.04, Troponin I 0.08 07/12/20 03:58: Urine Color YELLOW, Urine Appearance CLOUDYH, Urine pH 6.0, Urine Specific [place] 1.013, Urine Protein NEGATIVE, Urine Glucose (UA) NEGATIVE, Urine Ketones NEGATIVE, Urine Blood NEGATIVE, Urine Nitrite NEGATIVE, Urine Bilirubin NEGATIVE, Urine Urobilinogen 0.2, Urine Leukocyte Esterase NEGATIVE, Urine WBC (Auto) 2, Urine RBC (Auto) 5H, Urine Hyaline Casts (Auto) 0, Urine Bacteria (Auto) NEGATIVE, Urine Squamous Epithelial Cells 2, Urine Transitional Epithelial Cells <1, Urine Mucus (Auto) SMALL, Urine Sperm (Auto) 07/12/20 07:52: Bedside Glucose (Misc Panel) 137H CBC/BMP Laboratory Tests 07/12/20 01:41 GUCCI BURNS MD Jul 12, 2020 08:34
[2020-07-12] MEDS: HumaLOG INSULIN (NovoLOG) PER UNIT SC SCH ×4 (08:55→21:00)
[2020-07-12] MEDS: PREGABALIN 50 MG CAP (LYRICA) PO SCH ×2 (09:31→20:15)
[2020-07-12] MEDS: DULoxetine 30 MG CAP (CYMBALTA) PO SCH (09:31)
[2020-07-12] MEDS: APIXABAN 5 MG TAB (ELIQUIS) PO SCH ×2 (09:31→20:15)
[2020-07-12] MEDS: LOSARTAN 50MG TABLET PO SCH ×2 (09:33→20:15)
[2020-07-12] MEDS: amLODIPine 5 MG TAB PO SCH (09:33)
[2020-07-12] MEDS: ACETAMINOPHEN TAB 650MG DOSE (2X325MG) PO PRN ×2 (09:34→15:03)
[2020-07-12] MEDS: LIDOCAINE 5% (LIDODERM) PATCH TOP SCH (09:34)
[2020-07-12] MEDS: DICLOFENAC EPOLAMINE 1.3 % PATCH TOP SCH ×2 (09:34→20:16)
--- NOTE | 2020-07-12 10:34 | REPVR ---
PROCEDURE INFORMATION: Exam: XR Right Knee Exam date and time: 07/12/2020 10:05 AM Age: 75 years old Clinical indication: Pain; Knee; Bilateral; Additional info: Fall C/O b/l knee pain left>>>right TECHNIQUE: Imaging protocol: XR Right knee. Views: 1 or 2 views. COMPARISON: CR - Knee, complete RIGHT 04/25/2020 1:01:03 PM FINDINGS: Bones/joints: Bones are diffusely demineralized. There is advanced tricompartmental osteoarthritis with joint space narrowing and hypertrophic osteophyte formation. There is chondrocalcinosis and intra-articular loose bodies. The findings are similar when compared to the prior examination. No acute fracture or dislocation. Soft tissues: Moderate joint effusion. Vascular calcification. IMPRESSION: 1. No acute fracture or dislocation. 2. Moderate joint effusion, osteopenia and advanced tricompartmental osteoarthritis. PROCEDURE INFORMATION: Exam: XR Left Knee Exam date and time: 07/12/2020 10:05 AM Age: 75 years old Clinical indication: Pain; Knee; Bilateral; Additional info: Fall C/O b/l knee pain left>>>right TECHNIQUE: Imaging protocol: XR Left knee. Views: 1 or 2 views. COMPARISON: None. FINDINGS: Bones/joints: Bones are diffusely demineralized. There is advanced tricompartmental osteoarthritis with joint space narrowing and hypertrophic osteophyte formation. There is chondrocalcinosis and intra-articular loose bodies. No acute fracture or dislocation. Soft tissues: Moderate joint effusion. Vascular calcification. IMPRESSION: 1. No acute fracture or dislocation. 2. Moderate joint effusion, osteopenia and advanced tricompartmental osteoarthritis. Electronically signed by: Chuy Walker On 07/12/2020 10:33:55 AM
[2020-07-12 12:41] VITALS: BP_SYST 140; BP_SYST 142; BP_DIAS 80; BP_DIAS 81
[2020-07-12 14:00] VITALS: BP 130/74
[2020-07-12] MEDS: tiZANidine 4 MG TAB PO PRN (17:34)
[2020-07-12] MEDS: ATORVASTATIN 20 MG TAB PO SCH (20:12)
[2020-07-12] MEDS: rOPINIRole 1MG TAB PO SCH (20:12)
[2020-07-12] MEDS: **NOTE PATIENT COMMENT** MISC XX SCH (20:16)
[2020-07-12 22:00] VITALS: BP 131/79
[2020-07-13] MEDS: ACETAMINOPHEN TAB 650MG DOSE (2X325MG) PO PRN ×3 (01:47→17:07)
[2020-07-13 05:59] LABS: HEMATOCRIT 31.4 % (36.0-47.0); HEMOGLOBIN 9.8 g/dl (12.0-15.5); MEAN CORPUSCULAR HEMOGLOBIN 28.2 pg (27.0-33.0); MEAN CORPUSCULAR HGB CONC 31.2 g/dl (32.0-36.5); MEAN CORPUSCULAR VOLUME 90.5 fl (80.0-96.0); PLATELET COUNT, AUTOMATED 275 10^3/uL (150-450); RED BLOOD COUNT 3.47 10^6/uL (4.00-5.40); WHITE BLOOD COUNT 9.7 10^3/uL (4.0-10.0)
[2020-07-13 06:00] VITALS: BP 133/77
[2020-07-13] MEDS: HumaLOG INSULIN (NovoLOG) PER UNIT SC SCH ×4 (08:13→20:26)
[2020-07-13] MEDS: DULoxetine 30 MG CAP (CYMBALTA) PO SCH (08:14)
[2020-07-13] MEDS: LIDOCAINE 5% (LIDODERM) PATCH TOP SCH (08:14)
[2020-07-13] MEDS: PREGABALIN 50 MG CAP (LYRICA) PO SCH ×2 (08:14→20:41)
[2020-07-13] MEDS: APIXABAN 5 MG TAB (ELIQUIS) PO SCH ×2 (08:15→20:41)
[2020-07-13] MEDS: LOSARTAN 50MG TABLET PO SCH ×2 (08:15→20:48)
[2020-07-13] MEDS: amLODIPine 5 MG TAB PO SCH (08:16)
[2020-07-13 08:43] LABS: BLOOD UREA NITROGEN 21 MG/DL (7-18); CALCIUM LEVEL 8.4 MG/DL (8.8-10.2); CARBON DIOXIDE LEVEL 24 MEQ/L (21-32); CHLORIDE LEVEL 110 MEQ/L (98-107); CREATININE FOR GFR 0.86 MG/DL (0.55-1.30); GLOMERULAR FILTRATION RATE > 60.0 (>39); GLUCOSE, FASTING 146 MG/DL (70-100); POTASSIUM SERUM 4.5 MEQ/L (3.5-5.1); SODIUM LEVEL 140 MEQ/L (136-145)
[2020-07-13] MEDS ORDERED: DICL1PAT6 TOP (09:01)
[2020-07-13] MEDS ORDERED: SENO8.6T10 PO (09:03)
[2020-07-13] MEDS ORDERED: PERC5TAB12 PO (09:03)
[2020-07-13] MEDS: DICLOFENAC EPOLAMINE 1.3 % PATCH TOP SCH ×2 (09:25→20:42)
--- NOTE | 2020-07-13 12:41 | IPNPDOC ---
Date Seen The patient was seen on 07/13/20. Progress Note SUBJECTIVE: Patient was seen and examined at the bedside chart is been reviewed. Patient's pain is currently at 1 out of 10 while she is supine and goes up to 2 out of 10 when she ambulates around the room into the bathroom., No recurrent falls. During this admission, but requires assisted ambulation and were currently waiting for a knee immobilizer to the left knee OBJECTIVE: PHYSICAL EXAMINATION: VITALS: SEE BELOW Gen. awake, alert, oriented 3, answering questions appropriately. No resp iratory distress or cyanosis HEENT normocephalic, atraumatic. No thyromegaly. No cervical lymphadenopathy. No JVD Lungs clear to auscultation. No wheezing, rales or rhonchi. Air entry is equal. No use of respiratory accessory muscles, no adventitious breath sounds Heart S1, S2, sinus rhythm, no murmurs. Subsequent gallops Abdomen positive bowel sounds 4 quadrants, soft, nontender, nondistended. No hepatosplenomegaly, bruit Extremity no cyanosis, clubbing. Patient has no effusion of the left knee range of motion, limited secondary to pain. No erythema or tenderness LABORATORY DATA/IMAGING STUDIES: SEE BELOW. ASSESSMENT: 75-year-old female presented to the emergency room with her knees buckling and fall for further evaluation and physical therapy as well as pain control. 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 Physical therapy is unable to work with the patient as we are waiting the knee immobilizer which orthopedic surgery, Dr. Rossy Montalvo has recommended. There are no other acute medical issues requiring inpatient hospital care. Once the patient is cleared by physical therapy. She may be discharged home with outpatient follow- up with her previous orthopedic surgeon, Dr. Ho Elkins for steroid injections. She has been resumed on all her home medications, and has not had any other acute medical issues requiring changes in her medications. VS, I&O, 24H, Fishbone Vital Signs/I&O Vital Signs Date Time Temp Pulse Resp B/P (MAP) Pulse Ox O2 Delivery O2 Flow Rate FiO2 07/13/20 08:15 107/64 07/13/20 06:00 98.3 91 18 98 Room Air I&O- Last 24 Hours up to 6 AM 07/13/20 06:00 Intake Total 850 ml Output Total 850 ml Balance 0 ml Laboratory Data 24H LABS Laboratory Tests 2 07/12/20 16:33: Bedside Glucose (Misc Panel) 132H 07/12/20 19:53: Bedside Glucose (Misc Panel) 164H 07/13/20 05:34: Anion Gap 6L, Glomerular Filtration Rate > 60.0, Calcium Level 8.4L 07/13/20 05:42: Nucleated Red Blood Cells % (auto) 0.0 07/13/20 07:44: Bedside Glucose (Misc Panel) 142H 07/13/20 11:40: Bedside Glucose (Misc Panel) 131H CBC/BMP Laboratory Tests 07/13/20 05:34 07/13/20 05:42 GUCCI BURNS MD Jul 13, 2020 12:36
[2020-07-13 14:00] VITALS: BP 117/61
[2020-07-13] MEDS: tiZANidine 4 MG TAB PO PRN ×2 (14:33→20:46)
[2020-07-13] MEDS: ATORVASTATIN 20 MG TAB PO SCH (20:41)
[2020-07-13] MEDS: rOPINIRole 1MG TAB PO SCH (20:41)
[2020-07-13] MEDS: **NOTE PATIENT COMMENT** MISC XX SCH (20:43)
[2020-07-13 22:00] VITALS: BP 134/78
[2020-07-14] MEDS: tiZANidine 4 MG TAB PO PRN (05:51)
[2020-07-14 06:00] VITALS: BP 146/82
[2020-07-14] MEDS: HumaLOG INSULIN (NovoLOG) PER UNIT SC SCH (07:30)
[2020-07-14 09:00] VITALS: BP 102/62
[2020-07-14] MEDS: LOSARTAN 50MG TABLET PO SCH (09:00)
[2020-07-14] MEDS: amLODIPine 5 MG TAB PO SCH (09:00)
[2020-07-14] MEDS: APIXABAN 5 MG TAB (ELIQUIS) PO SCH (09:34)
[2020-07-14] MEDS: PREGABALIN 50 MG CAP (LYRICA) PO SCH (09:34)
[2020-07-14] MEDS: DULoxetine 30 MG CAP (CYMBALTA) PO SCH (09:34)
[2020-07-14] MEDS: LIDOCAINE 5% (LIDODERM) PATCH TOP SCH (09:35)
[2020-07-14] MEDS: DICLOFENAC EPOLAMINE 1.3 % PATCH TOP SCH (09:35)
--- NOTE | 2020-07-14 21:19 | DS.PDOC ---
Discharge Summary General Date of Admission Jul 12, 2020 at 04:16 Date of Discharge Jul 14, 2020 Attending Physician: JOSELITO PATRICK DO Discharge Summary PROCEDURES PERFORMED DURING STAY: None ADMITTING DIAGNOSES: 1. Mechanical fall secondary to severe osteoarthritis of the left knee 2. Anemia 3. Diabetes mellitus type 2 4. Diabetic neuropathy 5. History of CVA 6. Hypertension 7. Obesity class II 8. Pacemaker placement May 2024 syncope secondary to high-grade second-degree AV block DISCHARGE DIAGNOSES: 1. Mechanical fall secondary to severe osteoarthritis of the left knee 2. Anemia 3. Diabetes mellitus type 2 4. Diabetic neuropathy 5. History of CVA 6. Hypertension 7. Obesity class II 8. Pacemaker placement May 2024 syncope secondary to high-grade second-degree AV block COMPLICATIONS/CHIEF COMPLAINT: Frequent Falls. HISTORY OF PRESENT ILLNESS: Ms. Jimenez is a 75-year-old female with os teoarthritis and history of CVA who comes to [facility] for falling despite having her walker. She is chronic left knee pain and her legs give out. She denies any dizziness, blurry vision, shortness of breath, chest pain, or palpitations prior to falling. Of note, Dr. Ho Daniels as out patient has been managing her right knee pain with steroid injections. HOSPITAL COURSE: While she was here, orthopedics was contacted. Orthopedics recommended outpatient follow-up and a knee immobilizer. On July 14, patient received her knee immobilizer. Physical therapy worked with her on how to put it on and then cleared her. Today patient was feeling well, denies any fever or chills, lightheadedness or dizziness, chest pain, dyspnea, abdominal pain, d ysuria, or diarrhea. Patient was subsequently discharged home with home health DISCHARGE MEDICATIONS: Please see below. ALLERGIES: Please see below. PHYSICAL EXAMINATION ON DISCHARGE: VITAL SIGNS: Please see below. GENERAL: Comfortable, in no apparent distress. HEENT: Head normocephalic/atraumatic, EOMI, sclera clear. NECK: Supple RESPIRATORY: Lungs clear to auscultation bilaterally, no rales, wheeze or rhonchi. CARDIOVASCULAR: Regular rate and rhythm. ABDOMEN: Soft, nontender, no guarding or rebound tenderness. Normal bowel sounds. MUSCLE SKELETAL: Knee immobilizer in place NEUROLOGICAL: CN 312 grossly intact PSYCHOLOGICAL: Normal mood and affect LABORATORY DATA: Please see below. IMAGING: Right knee x-ray 1. No acute fracture or dislocation. 2. Moderate joint effusion, osteopenia and advanced tricompartmental osteoarthritis. CT head No acute intracranial abnormality. PROGNOSIS: Stable ACTIVITY: Walk with walker DIET: 2 g sodium DISCHARGE PLAN: Home with home health DISPOSITION: Home, Self-Care. DISCHARGE INSTRUCTIONS: 1. Follow with Dr. Stauffer on 07/20/2020 at 1 PM 2. Follow-up with Dr Verdin on 07/28/2020 at 10:45 AM. DISCHARGE CONDITION: Stable. Total time spent on discharge planning, discharge summary, and med reconciliation 35 minutes Vital Signs/I&Os Vital Signs Date Time Temp Pulse Resp B/P (MAP) Pulse Ox O2 Delivery O2 Flow Rate FiO2 07/14/20 09:00 102/62 07/14/20 06:00 98.1 82 18 96 Room Air I&O- Last 24 Hours up to 6 AM 07/14/20 06:00 Intake Total 1680 ml Output Total 0 ml Balance 1680 ml Laboratory Data Labs 24H Laboratory Tests 2 07/14/20 08:10: Bedside Glucose (Misc Panel) 155H 07/14/20 11:37: Bedside Glucose (Misc Panel) 161H FSBS Laboratory Tests Test 07/14/20 08:10 07/14/20 11:37 Range/Units Bedside Glucose (Misc Panel) 155 161 83-110 MG/DL Discharge Medications Scheduled Amlodipine Besylate (Amlodipine Besylate) 5 Mg Tablet, 5 MG PO DAILY, (Reported) Apixaban (Eliquis) 5 Mg Tablet, 5 MG PO BID, (Reported) Atorvastatin Calcium (Atorvastatin Calcium) 20 Mg Tablet, 20 MG PO QHS, (Reported) Diclofenac Epolamine (Diclofenac Epolamine) 1 Each Patch.td12, 1 PATCH TOP Q12H Duloxetine Hcl (Duloxetine HCl) 30 Mg Capsule.dr, 30 MG PO DAILY, (Reported) Lidocaine (Lidocaine) 5% Adh..patch, 1 PATCH TOP Q12H, (Reported) lower back Losartan Potassium (Losartan Potassium) 50 Mg Tab, 50 MG PO BID, (Reported) Pregabalin (Lyrica) 50 Mg Capsule, 50 MG PO BID, (Reported) Ropinirole HCl (Ropinirole HCl) 3 Mg Tablet, 3 MG PO QHS, (Reported) Sitagliptin Phos/Metformin HCl (Janumet Xr 50-500 mg Tablet) 1 Tab Tab, 1 TAB PO BID, (Reported) Scheduled PRN Acetaminophen (Acetaminophen) 325 Mg Tablet, 650 MG PO Q4H PRN for PAIN / FEVER, (Reported) Oxycodone HCl/Acetaminophen (Percocet 5-325 mg Tablet) 1 Each Tablet, 1 TAB PO TIDP PRN for pain Sennosides/Docusate Sodium (Senokot-S Tablet) 1 Each Tablet, 1 TAB PO BIDP PRN for CONSTIPATION Tizanidine HCl (Tizanidine HCl) 2 Mg Tablet, 2 MG PO BID PRN for MUSCLE SPASMS, (Reported) Allergies Coded Allergies: No Known Allergies (Verified , 03/07/18) JOSELITO PATRICK DO Jul 14, 2020 21:19
--- NOTE | 2020-07-15 07:59 | CR ---
DATE OF CONSULTATION: 07/12/2020 CHIEF COMPLAINT: Bilateral knee pain left worse than right. HISTORY OF PRESENT ILLNESS: This is a 75-year-old female who has severe bilateral knee arthritis. She uses a walker. She was having multiple falls which she attributes to her left knee giving out on her. She sees Dr. Sánchez for cortisone injections. She does not use a brace. She denies fevers, chills, coughing, or loss of consciousness. Review of systems is reviewed and noted. PAST MEDICAL AND SURGICAL HISTORY: 1. Type 2 diabetes with neuropathy. 2. History of CVA on Eliquis. 3. Congestive heart failure (CHF). 4. Chronic hypertension. 5. Dyslipidemia. 6. Obesity. 7. Pacemaker. 8. Cervical spine fusion. 9. Lumbar disc surgery. 10. Cataract surgery. 11. History of a right total hip replacement. SOCIAL HISTORY: Patient does have a history of tobacco use. ALLERGIES: No known drug allergies. HOME MEDICATIONS: - amlodipine - Eliquis - atorvastatin - duloxetine - lidocaine - losartan - Lyrica - ropinirole - Janumet PHYSICAL EXAMINATION: General: Well-appearing, alert and oriented, no acute distress. Pulmonary: Regular and unlabored breathing. Cardiovascular: Regular rate and rhythm. Abdomen: Soft, nontender. Musculoskeletal/Extremities: Patient has knee flexion deformities bilaterally. She cannot reach full extension on the left and is about 10-15 degrees shy of full extension. On the right she is almost able to fully extend the knee. She can flex to about 90 degrees bilaterally. There is pain along the joint line bilaterally. There is no significant swelling. She is neurovascularly intact distally. IMAGING: Bilateral knee x-rays are reviewed. There is severe end-stage osteoarthritis bilaterally. No apparent fractures. IMPRESSION: Bilateral knee arthritis. PLAN: I would try a brace to stabilize the left side when she is walking. She should continue to use her walker to limit falling. She is set up to see Dr. Sánchez at the end of the month, but we should try to move this appointment up for her so that she can get repeat cortisone injections versus discussing with him whether or not she is ready for a knee replacement. All of her questions were answered and she is in agreement with this plan. WENDIE
== END 2020-07-14 11:59 | disposition home health service (06) | DRG 554 ==
LOC: M ED 00:28 → M MSPAV 04:16 → M ED INP 04:16 → ENRESERV 04:50 → M MSPAV 05:14
PROVIDERS: ADMIT Internal Medicine; ATTEND Internal Medicine
DX: M17.0 Bilateral primary osteoarthritis of knee (principal); I50.32 Chronic diastolic (congestive) heart failure; I44.1 Atrioventricular block, second degree; E11.40 Type 2 diabetes mellitus with diabetic neuropathy, unspecified; I11.0 Hypertensive heart disease with heart failure; E78.5 Hyperlipidemia, unspecified; R26.81 Unsteadiness on feet; R29.6 Repeated falls; M19.90 Unspecified osteoarthritis, unspecified site; E66.9 Obesity, unspecified; Z95.0 Presence of cardiac pacemaker; Z98.1 Arthrodesis status; Z98.49 Cataract extraction status, unspecified eye; Z96.651 Presence of right artificial knee joint; Z68.36 Body mass index [BMI] 36.0-36.9, adult; Z79.01 Long term (current) use of anticoagulants; Z79.899 Other long term (current) drug therapy; Z87.891 Personal history of nicotine dependence

== ENCOUNTER 2020-08-16 15:20 | Emergency (ER) | payer OTHER, MEDICAID ==
[~2020-08-16] VITALS: Ht 154.9 cm; Wt 88.6 kg
[~2020-08-16 15:20] MED LIST changes: +DICL1PAT6 TOP; +LIDO5TD TOP; +PERC5TAB12 PO; +SENO8.6T10 PO
[2020-08-16 15:59] LABS: BASO # 0.1 10^3/uL (0.0-0.2); BASO % 0.6 % (0.0-1.0); EOS # 0.1 10^3/uL (0.0-0.5); EOS % 1.5 % (0.0-3.0); HEMATOCRIT 34.7 % (36.0-47.0); LYMPH # 2.9 10^3/uL (1.5-5.0); LYMPH % 32.9 % (24.0-44.0); MEAN CORPUSCULAR HGB CONC 31.7 g/dl (32.0-36.5); MEAN CORPUSCULAR VOLUME 88.3 fl (80.0-96.0); MONO # 0.5 10^3/uL (0.0-0.8); MONO % 5.8 % (0.0-5.0); NEUTROPHILS # 5.1 10^3/uL (1.5-8.5); NEUTROPHILS % 58.9 % (36.0-66.0); PLATELET COUNT, AUTOMATED 268 10^3/uL (150-450); RED BLOOD COUNT 3.93 10^6/uL (4.00-5.40); WHITE BLOOD COUNT 8.7 10^3/uL (4.0-10.0)
[2020-08-16] MEDS ORDERED: MECL-86 (16:18)
[2020-08-16 16:29] LABS: ALBUMIN 3.4 GM/DL (3.2-5.2); ALT/SGPT 15 U/L (12-78); BILIRUBIN,DIRECT < 0.1 MG/DL (0.0-0.2); BILIRUBIN,TOTAL 0.3 MG/DL (0.2-1.0); BLOOD UREA NITROGEN 18 MG/DL (7-18); CALCIUM LEVEL 8.7 MG/DL (8.8-10.2); CARBON DIOXIDE LEVEL 23 MEQ/L (21-32); CHLORIDE LEVEL 104 MEQ/L (98-107); CREATININE FOR GFR 1.12 MG/DL (0.55-1.30); GLOMERULAR FILTRATION RATE 50.5 (>39); GLUCOSE, FASTING 192 MG/DL (70-100); POTASSIUM SERUM 3.9 MEQ/L (3.5-5.1); SODIUM LEVEL 135 MEQ/L (136-145); TOTAL PROTEIN 7.2 GM/DL (6.4-8.2)
--- NOTE | 2020-08-16 17:35 | REP ---
INDICATION: fever. COMPARISON: 07/12/2020, 06/01/2020 TECHNIQUE: Single PA chest. FINDINGS: Dual lead pacer overlies the left mid upper chest with leads in the right atrium and right ventricle, unchanged. There is no infiltrate, effusion, pleural thickening or other acute finding. Heart size is unchanged without gross cardiomegaly. There is no vascular redistribution or pulmonary edema. The aorta is calcified at the arch and unchanged. Airway midline. Bones without acute finding but with degenerative changes throughout the spine and shoulders. No free air under the diaphragm. IMPRESSION: 1. No acute cardiopulmonary change. A dual lead pacer is unchanged. Stable examination. <Electronically signed by Arnol Barbosa > 08/16/20 [id number]
--- NOTE | 2020-08-16 18:06 | REPVR ---
PROCEDURE INFORMATION: Exam: CT Head Without Contrast Exam date and time: 08/16/2020 5:22 PM Age: 75 years old Clinical indication: Other: Vertigo TECHNIQUE: Imaging protocol: Computed tomography of the head without contrast. Radiation optimization: All CT scans at this facility use at least one of these dose optimization techniques: automated exposure control; mA and/or kV adjustment per patient size (includes targeted exams where dose is matched to clinical indication); or iterative reconstruction. COMPARISON: CT Head without contrast 07/12/2020 1:25 AM FINDINGS: Brain: No acute intracerebral abnormality or injury. No acute infarct or intracerebral bleed. 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 No significant interval change since the previous head CT from 07/12/2020. [place] Stroke Program Early CT Score (ASPECTS score) = 10. Cerebral ventricles: No ventriculomegaly. Bones/joints: Unremarkable. No acute fracture. Paranasal sinuses: Visualized sinuses are unremarkable. No fluid levels. Mastoid air cells: Visualized mastoid air cells are well aerated. Soft tissues: Unremarkable. IMPRESSION: 1. No acute intracerebral abnormality or injury. No acute infarct or intracerebral bleed. 2. 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 No significant interval change since the previous head CT from 07/12/2020. 3. [place] Stroke Program Early CT Score (ASPECTS score) = 10. Electronically signed by: Bryan De Jesus On 08/16/2020 18:05:39 PM
[2020-08-16] MEDS ORDERED: ACETAMINOPHEN TAB 650MG DOSE (2X325MG) PO ONE (18:15)
[2020-08-16] MEDS ORDERED: MECLIZINE 25 MG TABLET PO ONE (18:45)
[2020-08-16 19:11] VITALS: BP 150/65
--- NOTE | 2020-08-18 14:25 | ECGEPIP ---
[facility] - ED Test Date: 2020-08-16 Pat Name: DAGOBERTO HURLEY Department: Room: - Gender: Female [employer]: : 1945 Requested By: Sim Mejia Order Number: [id number] Reading MD: Sim Forbes Measurements Intervals [place] Rate: 79 P: 77 MT: 236 QRS: -75 QRSD: 155 T: 48 QT: 405 QTc: 467 Interpretive Statements SINUS RHYTHM WITH FIRST DEGREE AV BLOCK RIGHT BUNDLE BRANCH BLOCK INFERIOR MYOCARDIAL INFARCTION, PROBABLY OLD Electronically Signed on 08-18-2020 14:25:13 EST by Sim Forbes
== END 2020-08-16 19:13 | disposition home or self-care (01) ==
LOC: EDBD 15:20 → M ED 15:20
DX: R42 Dizziness and giddiness (principal); I45.10 Unspecified right bundle-branch block; I44.0 Atrioventricular block, first degree; E11.42 Type 2 diabetes mellitus with diabetic polyneuropathy; I11.0 Hypertensive heart disease with heart failure; I50.9 Heart failure, unspecified; E66.9 Obesity, unspecified; Z95.0 Presence of cardiac pacemaker

== ENCOUNTER → 2021-10-06 | Outpatient (CLI) | payer MEDICARE, MEDICAID ==
[~2021-10-06] MED LIST changes: +GABA-282 PO; -GABA-843 PO; +MECL-86; +TIZA1TAB12 PO; -TIZA2TAB6 PO
--- NOTE | 2021-10-06 11:41 | REP ---
INDICATION: HX OF CVA COMPARISON: None. TECHNIQUE: Odom scale and color Doppler evaluation using linear high frequency transducer Findings: FINDINGS: Moderate amount of mixed atheromatous plaquing is noted bilaterally to the level of the proximal internal/external carotid arteries. Evaluation is somewhat limited due to high bifurcation. Normal flow direction is appreciated in the bilateral vertebral arteries with left sided dominance noted. ICA peak systolic velocity: Right 51.9 cm/s; Left 69.5 cm/s ICA diastolic velocity: Right 19.2 cm/s; Left 20.5 cm/s ECA peak systolic velocity: Right 55.4 cm/s; Left 102.1 cm/s CCA peak systolic velocity: Right 51.6 cm/s; Left 53.0 cm/s ICA/CCA ratio: Right 1.0 cm/s; Left 1.3 cm/s IMPRESSION: No hemodynamically significant areas of narrowing or stenosis appreciated. Based on set standards narrowing falls within the less than 50% range. <Electronically signed by Chuy Locke > 10/06/21 [id number]
== END ==
LOC: M RAD 10:47
PROVIDERS: ATTEND Internal Medicine
DX: I63.40 Cerebral infarction due to embolism of unspecified cerebral artery (principal)

== ENCOUNTER 2022-03-24 10:55 | Emergency (ER) | payer MEDICARE, MEDICAID ==
[~2022-03-24] VITALS: Ht 154.9 cm; Wt 93.2 kg
[~2022-03-24 10:55] MED LIST changes: +LOSA25TA13 PO; -LOSA25TA14 PO; +LOSA50TA28 PO; -LOSA50TA88 PO; +ULTR1TAB PO; -ULTR37.54 PO
[2022-03-24] MEDS ORDERED: DULO1CAP5 (11:23)
[2022-03-24] MEDS ORDERED: PREG50CA2 (11:23)
[2022-03-24] MEDS ORDERED: CEPH500C PO (12:07)
[2022-03-24 12:16] VITALS: BP 146/77
== END 2022-03-24 12:20 | disposition home or self-care (01) ==
LOC: M ED 10:55 → EDBD 10:55 → M ED 12:20
DX: L03.032 Cellulitis of left toe (principal); Z86.73 Personal history of transient ischemic attack (TIA), and cerebral infarction without residual deficits; E11.9 Type 2 diabetes mellitus without complications; Z79.01 Long term (current) use of anticoagulants; Z79.899 Other long term (current) drug therapy

== ENCOUNTER → 2022-05-10 | Outpatient (CLI) | payer MEDICARE, MEDICAID ==
[~2022-05-10] MED LIST changes: +CEPH500C PO; +PREG50CA2
== END ==
LOC: M RAD 11:54
PROVIDERS: ATTEND Internal Medicine
DX: Z12.2 Encounter for screening for malignant neoplasm of respiratory organs (principal); F17.210 Nicotine dependence, cigarettes, uncomplicated

== ENCOUNTER 2022-07-02 13:45 | Emergency (ER) | payer MEDICAID, MEDICARE ==
[~2022-07-02] VITALS: Ht 154.9 cm; Wt 92.7 kg
[2022-07-02] MEDS ORDERED: ROPI3TAB3 (14:19)
[2022-07-02] MEDS ORDERED: ASPI-1 PO (14:19)
[2022-07-02 15:53] LABS: BASO # 0.1 10^3/uL (0.0-0.2); BASO % 0.7 % (0.0-1.0); EOS # 0.2 10^3/uL (0.0-0.5); EOS % 1.6 % (0.0-3.0); HEMOGLOBIN 9.2 g/dl (12.0-15.5); LYMPH % 28.4 % (24.0-44.0); MEAN CORPUSCULAR HEMOGLOBIN 28.8 pg (27.0-33.0); MEAN CORPUSCULAR HGB CONC 30.7 g/dl (32.0-36.5); MONO # 0.6 10^3/uL (0.0-0.8); MONO % 5.5 % (2.0-8.0); NEUTROPHILS # 6.8 10^3/uL (1.5-8.5); NEUTROPHILS % 63.5 % (36.0-66.0); PLATELET COUNT, AUTOMATED 295 10^3/uL (150-450); RED BLOOD COUNT 3.19 10^6/uL (4.00-5.40); WHITE BLOOD COUNT 10.7 10^3/uL (4.0-10.0)
[2022-07-02 16:05] LABS: INR 1.08; PROTHROMBIN TIME 14.4 SECONDS (12.7-14.5)
[2022-07-02 16:28] LABS: CREATININE FOR GFR 1.14 MG/DL (0.55-1.30); GLOMERULAR FILTRATION RATE 49.2 (>39); POTASSIUM SERUM 4.3 MEQ/L (3.5-5.1)
[2022-07-02 16:36] LABS: CK-MB VALUE MASS 2.2 NG/ML (<3.6); MB/CK RELATIVE INDEX 3.44 (< OR =4)
[2022-07-02] MEDS ORDERED: ISOVUE-370 76% 100ML VIAL As Ordered ONE (16:52)
[2022-07-02 17:13] VITALS: O2SAT 95
[2022-07-02 17:32] LABS: CK-MB VALUE MASS 2.4 NG/ML (<3.6)
[2022-07-02] MEDS ORDERED: FUROSEMIDE 20MG/2ML VIAL (J1940) IV ONE (18:35)
[2022-07-02 19:32] LABS: CK-MB VALUE MASS 2.4 NG/ML (<3.6); MB/CK RELATIVE INDEX 4.14 (< OR =4)
[2022-07-02] MEDS ORDERED: LASI20TA3 PO (20:06)
[2022-07-02 20:37] VITALS: BP 136/61
== END 2022-07-02 20:39 | disposition home or self-care (01) ==
LOC: M ED 13:45
DX: I11.0 Hypertensive heart disease with heart failure (principal); I50.9 Heart failure, unspecified; F17.200 Nicotine dependence, unspecified, uncomplicated; I48.91 Unspecified atrial fibrillation; E11.9 Type 2 diabetes mellitus without complications; Z79.01 Long term (current) use of anticoagulants; Z78.0 Asymptomatic menopausal state; Z95.0 Presence of cardiac pacemaker
CPT/HCPCS: 71046; 71275; 80048; 82550; 82553; 83880; 84484; 85025; 85610; 87486; 87581; 87633; 87798; 93005; 93041; 94760; 96374; 99285; J1940; Q9967

== ENCOUNTER → 2022-07-05 | Outpatient (REF) | payer MEDICARE, MEDICAID ==
[~2022-07-05] MED LIST changes: +ASPI-1 PO; +LASI20TA3 PO
[2022-07-05 13:48] LABS: PERCENT SATURATION 5.5 % (13.2-45.0)
== END ==
LOC: M LAB REF 12:11
PROVIDERS: ATTEND Internal Medicine
DX: D64.9 Anemia, unspecified (principal)

== ENCOUNTER 2022-07-18 18:44 | Emergency (ER) | payer MEDICARE, OTHER ==
[~2022-07-18] VITALS: Ht 154.9 cm; Wt 96.7 kg
[2022-07-18 19:33] LABS: BASO # 0.1 10^3/uL (0.0-0.2); BASO % 0.8 % (0.0-1.0); EOS # 0.4 10^3/uL (0.0-0.5); EOS % 4.1 % (0.0-3.0); HEMATOCRIT 26.5 % (36.0-47.0); HEMOGLOBIN 8.1 g/dl (12.0-15.5); LYMPH # 1.9 10^3/uL (1.5-5.0); LYMPH % 21.7 % (24.0-44.0); MEAN CORPUSCULAR HEMOGLOBIN 29.2 pg (27.0-33.0); MEAN CORPUSCULAR HGB CONC 30.6 g/dl (32.0-36.5); MEAN CORPUSCULAR VOLUME 95.7 fl (80.0-96.0); MONO # 0.5 10^3/uL (0.0-0.8); MONO % 6.2 % (2.0-8.0); NEUTROPHILS # 5.8 10^3/uL (1.5-8.5); NEUTROPHILS % 66.7 % (36.0-66.0); PLATELET COUNT, AUTOMATED 247 10^3/uL (150-450); RED BLOOD COUNT 2.77 10^6/uL (4.00-5.40); WHITE BLOOD COUNT 8.7 10^3/uL (4.0-10.0)
[2022-07-18 19:38] LABS: INR 1.12; PARTIAL THROMBOPLASTIN TIME 28.6 SECONDS (24.8-34.2); PROTHROMBIN TIME 14.6 SECONDS (12.5-14.5)
[2022-07-18 19:43] LABS: ALBUMIN 3.4 GM/DL (3.2-5.2); ALT/SGPT 16 U/L (12-78); BILIRUBIN,DIRECT < 0.1 MG/DL (0.0-0.2); BILIRUBIN,TOTAL 0.2 MG/DL (0.2-1.0); BLOOD UREA NITROGEN 33 MG/DL (7-18); CALCIUM LEVEL 8.5 MG/DL (8.8-10.2); CARBON DIOXIDE LEVEL 25 MEQ/L (21-32); CHLORIDE LEVEL 107 MEQ/L (98-107); CREATININE FOR GFR 1.57 MG/DL (0.55-1.30); GLUCOSE, FASTING 200 MG/DL (70-100); LIPASE 617 U/L (73-393); POTASSIUM SERUM 4.4 MEQ/L (3.5-5.1); SODIUM LEVEL 138 MEQ/L (136-145); TOTAL PROTEIN 6.4 GM/DL (6.4-8.2)
[2022-07-18 19:46] LABS: CPK CREATINE PHOSPHOKINASE 90 U/L (26-192)
[2022-07-18 20:27] LABS: RSV AMPLIFICATION NEGATIVE (NEGATIVE)
[2022-07-18 21:34] LABS: CPK CREATINE PHOSPHOKINASE 82 U/L (26-192)
[2022-07-18] MEDS ORDERED: ISOVUE-370 76% 100ML VIAL As Ordered ONE (21:44)
[2022-07-18 22:04] LABS: NT-PRO BNP 2369 PG/ML (<450)
[2022-07-18 23:22] LABS: CPK CREATINE PHOSPHOKINASE 84 U/L (26-192)
[2022-07-19] MEDS ORDERED: ASPIRIN 81 MG CHEW TABLET PO ONE (02:40)
[2022-07-19 09:00] VITALS: BP 117/56
== END 2022-07-19 09:24 | disposition short-term general hospital (02) ==
LOC: M ED 18:44 → EDBD 18:44 → M ED 07-19 09:24
DX: I21.4 Non-ST elevation (NSTEMI) myocardial infarction (principal); I50.9 Heart failure, unspecified; I44.2 Atrioventricular block, complete; E11.9 Type 2 diabetes mellitus without complications; D50.9 Iron deficiency anemia, unspecified; Z86.73 Personal history of transient ischemic attack (TIA), and cerebral infarction without residual deficits; Z79.01 Long term (current) use of anticoagulants; F17.200 Nicotine dependence, unspecified, uncomplicated; Z95.0 Presence of cardiac pacemaker; Z96.641 Presence of right artificial hip joint; I51.7 Cardiomegaly; I70.90 Unspecified atherosclerosis; I25.10 Atherosclerotic heart disease of native coronary artery without angina pectoris; K86.9 Disease of pancreas, unspecified
CPT/HCPCS: 36415; 71045; 71275; 80047; 80048; 80076; 81002; 82550; 83605; 83690; 83880; 84484; 85025; 85610; 85730; 86850; 86900; 86901; 87040; 87631; 93005; 93041; 99285; Q9967

== ENCOUNTER 2022-07-30 11:45 | Inpatient (IN) | payer MEDICARE, OTHER ==
[2022-07-30] VITALS (9 sets, daily range): BP systolic 98–131; BP diastolic 49–64
[~2022-07-30] VITALS: Ht 154.9 cm; Wt 93.7 kg
[~2022-07-30 11:45] MED LIST changes: -PREG50CA2; +PREG50CA2 PO
[2022-07-30] MEDS ORDERED: NS 500 ML IV ONE ×2 (11:55→12:45)
[2022-07-30 12:37] LABS: BASO % 0.4 % (0.0-1.0); EOS # 0.5 10^3/uL (0.0-0.5); EOS % 4.6 % (0.0-3.0); HEMATOCRIT 22.6 % (36.0-47.0); LYMPH # 2.2 10^3/uL (1.5-5.0); LYMPH % 22.3 % (24.0-44.0); MEAN CORPUSCULAR HEMOGLOBIN 30.6 pg (27.0-33.0); MEAN CORPUSCULAR HGB CONC 29.6 g/dl (32.0-36.5); MEAN CORPUSCULAR VOLUME 103.2 fl (80.0-96.0); MONO # 0.6 10^3/uL (0.0-0.8); MONO % 5.9 % (2.0-8.0); NEUTROPHILS # 6.6 10^3/uL (1.5-8.5); NEUTROPHILS % 66.2 % (36.0-66.0); PLATELET COUNT, AUTOMATED 335 10^3/uL (150-450); RED BLOOD COUNT 2.19 10^6/uL (4.00-5.40)
[2022-07-30 12:46] LABS: HEMOGLOBIN 6.7 g/dl (12.0-15.5)
[2022-07-30 12:47] LABS: INR 1.06; PARTIAL THROMBOPLASTIN TIME 28.5 SECONDS (24.8-34.2)
[2022-07-30 13:08] LABS: RSV AMPLIFICATION NEGATIVE (NEGATIVE)
[2022-07-30 13:09] LABS: CK-MB VALUE MASS 2.1 NG/ML (<3.6); MB/CK RELATIVE INDEX 1.79 (< OR =4)
[2022-07-30 13:11] LABS: ALBUMIN 3.2 GM/DL (3.2-5.2); BILIRUBIN,DIRECT 0.1 MG/DL (0.0-0.2); BILIRUBIN,TOTAL 0.2 MG/DL (0.2-1.0); CALCIUM LEVEL 8.8 MG/DL (8.8-10.2); CREATININE FOR GFR 1.46 MG/DL (0.55-1.30); FREE T4 0.93 NG/DL (0.76-1.46); POTASSIUM SERUM 3.9 MEQ/L (3.5-5.1); THYROID STIMULATING HORMONE 3.06 uIU/ML (0.358-3.740); TOTAL PROTEIN 6.4 GM/DL (6.4-8.2)
[2022-07-30 14:14] LABS: CK-MB VALUE MASS 2.2 NG/ML (<3.6); MB/CK RELATIVE INDEX 1.88 (< OR =4)
[2022-07-30] MEDS ORDERED: GLUCOSE 4GM CHEW TABLET PO PRN (17:10)
[2022-07-30] MEDS ORDERED: GLUCAGON INJ 1MG VIAL SC PRN (17:10)
[2022-07-30] MEDS ORDERED: DEXTROSE 50% 50 ML SYRINGE IV PRN (17:10)
[2022-07-30] MEDS: INSULIN LISPRO (NovoLOG) PER UNIT SC SCH ×2 (17:30→21:00)
[2022-07-30] MEDS ORDERED: BISACODYL 10 MG SUPP PR ONE (18:10)
[2022-07-30 18:44] LABS: CALCIUM LEVEL 8.8 MG/DL (8.8-10.2); CREATININE FOR GFR 1.34 MG/DL (0.55-1.30); GLOMERULAR FILTRATION RATE 40.8 (>39); POTASSIUM SERUM 4.1 MEQ/L (3.5-5.1)
[2022-07-30 19:02] LABS: CK-MB VALUE MASS 2.3 NG/ML (<3.6); MB/CK RELATIVE INDEX 1.7 (< OR =4)
[2022-07-30 19:32] LABS: PERCENT SATURATION 38.2 % (13.2-45.0)
[2022-07-30] MEDS ORDERED: FURO20TA2 PO (19:35)
[2022-07-30] MEDS ORDERED: PREG50CA PO (19:35)
[2022-07-30] MEDS ORDERED: ASPI81TA26 PO (19:35)
[2022-07-30] MEDS ORDERED: ATOR1TAB21 PO (19:38)
[2022-07-30] MEDS ORDERED: CYCL-707 PO (19:38)
[2022-07-30] MEDS ORDERED: AMLO1TAB24 PO (19:38)
[2022-07-30] MEDS ORDERED: JARD1TAB PO (19:38)
[2022-07-30] MEDS ORDERED: METO1TAB32 PO (19:38)
[2022-07-30] MEDS ORDERED: CLOP75TA2 PO (19:38)
[2022-07-30] MEDS ORDERED: FERR325T19 PO (19:38)
[2022-07-30] MEDS ORDERED: HOME MED LIST COMPLETE! XX SCH (19:40)
[2022-07-30] MEDS ORDERED: CYCLOBENZAPRINE 10MG TABLET PO PRN (19:45)
[2022-07-30] MEDS ORDERED: REMDESIVIR 200 MG in NS 250 ML IV ONE (20:00)
[2022-07-30 21:12] LABS: CK-MB VALUE MASS 2.2 NG/ML (<3.6); MB/CK RELATIVE INDEX 1.73 (< OR =4)
[2022-07-30] MEDS ORDERED: SODIUM CHLORIDE 0.9% INJ 10 ML SYR IV ONE (22:00)
[2022-07-31] MEDS: PREGABALIN 50 MG CAP (LYRICA) PO SCH ×3 (00:12→21:20)
[2022-07-31] MEDS: ATORVASTATIN 20 MG TAB PO SCH ×2 (00:12→21:20)
[2022-07-31] MEDS: guaiFENesin 200 MG TAB PO SCH ×3 (00:13→21:20)
[2022-07-31] MEDS: rOPINIRole 1MG TAB PO SCH ×2 (00:13→21:20)
[2022-07-31 00:15] LABS: HEMATOCRIT 31.4 % (36.0-47.0)
[2022-07-31 00:25] LABS: HEMOGLOBIN 9.6 g/dl (12.0-15.5)
[2022-07-31 00:29] LABS: CK-MB VALUE MASS 2.3 NG/ML (<3.6); MB/CK RELATIVE INDEX 1.58 (< OR =4)
[2022-07-31 07:36] LABS: HEMATOCRIT 30.6 % (36.0-47.0); HEMOGLOBIN 9.6 g/dl (12.0-15.5); MEAN CORPUSCULAR HEMOGLOBIN 30.7 pg (27.0-33.0); MEAN CORPUSCULAR HGB CONC 31.4 g/dl (32.0-36.5); MEAN CORPUSCULAR VOLUME 97.8 fl (80.0-96.0); PLATELET COUNT, AUTOMATED 266 10^3/uL (150-450); RED BLOOD COUNT 3.13 10^6/uL (4.00-5.40); WHITE BLOOD COUNT 8.8 10^3/uL (4.0-10.0)
[2022-07-31 08:05] LABS: CALCIUM LEVEL 8.1 MG/DL (8.8-10.2); CREATININE FOR GFR 1.14 MG/DL (0.55-1.30); GLOMERULAR FILTRATION RATE 49.2 (>39); MAGNESIUM LEVEL 2.2 MG/DL (1.8-2.4); POTASSIUM SERUM 4.2 MEQ/L (3.5-5.1)
[2022-07-31] MEDS ORDERED: BISACODYL 10 MG SUPP PR PRN (09:00)
[2022-07-31] MEDS: CLOPIDOGREL 75 MG TAB PO SCH (10:37)
[2022-07-31] MEDS: ASPIRIN 81MG ENTERIC TABLET PO SCH (10:37)
[2022-07-31] MEDS: DULoxetine 30MG CAPSULE (CYMBALTA) PO SCH (10:37)
[2022-07-31] MEDS: FERROUS SULFATE 325MG TAB PO SCH (10:38)
[2022-07-31] MEDS: INSULIN LISPRO (NovoLOG) PER UNIT SC SCH ×4 (12:00→21:00)
[2022-07-31 12:16] LABS: HEMATOCRIT 32.2 % (36.0-47.0)
[2022-07-31 14:52] VITALS: BP 90/50
[2022-07-31 15:00] VITALS: BP 93/49
[2022-07-31] MEDS ORDERED: NS 500 ML IV ONE (15:15)
[2022-07-31 16:00] VITALS: BP 95/51
[2022-07-31] MEDS ORDERED: LIDOCAINE 5% (LIDODERM) PATCH TD PRN (16:30)
[2022-07-31 17:00] VITALS: BP 120/58
[2022-07-31] MEDS: ACETAMINOPHEN TAB 650MG DOSE (2X325MG) PO PRN (17:01)
[2022-07-31 17:44] LABS: CK-MB VALUE MASS 2.2 NG/ML (<3.6); MB/CK RELATIVE INDEX 1.68 (< OR =4)
[2022-07-31 18:00] VITALS: BP 106/57
[2022-07-31] MEDS: MIRALAX *UNIT DOSE* 17GM PACKET PO PRN (18:24)
[2022-07-31 18:44] LABS: HEMATOCRIT 30.3 % (36.0-47.0); HEMOGLOBIN 9.6 g/dl (12.0-15.5)
[2022-07-31 19:41] LABS: CK-MB VALUE MASS 2.3 NG/ML (<3.6); MB/CK RELATIVE INDEX 1.56 (< OR =4)
[2022-07-31] MEDS: REMDESIVIR 100 MG in NS 250 ML IV SCH (19:42)
[2022-07-31 20:00] VITALS: BP 114/55
[2022-07-31] MEDS: SODIUM CHLORIDE 0.9% INJ 10 ML SYR IV SCH (21:20)
[2022-08-01] VITALS (9 sets, daily range): BP systolic 110–138; BP diastolic 55–81
[2022-08-01 01:06] LABS: HEMATOCRIT 29.5 % (36.0-47.0); HEMOGLOBIN 9.3 g/dl (12.0-15.5)
[2022-08-01 05:52] LABS: HEMATOCRIT 29.8 % (36.0-47.0); HEMOGLOBIN 9.1 g/dl (12.0-15.5); MEAN CORPUSCULAR HEMOGLOBIN 30.2 pg (27.0-33.0); MEAN CORPUSCULAR HGB CONC 30.5 g/dl (32.0-36.5); PLATELET COUNT, AUTOMATED 262 10^3/uL (150-450); RED BLOOD COUNT 3.01 10^6/uL (4.00-5.40); WHITE BLOOD COUNT 7.6 10^3/uL (4.0-10.0)
[2022-08-01 06:24] LABS: CALCIUM LEVEL 8.5 MG/DL (8.8-10.2); CREATININE FOR GFR 1.03 MG/DL (0.55-1.30); GLOMERULAR FILTRATION RATE 55.3 (>39); MAGNESIUM LEVEL 2.2 MG/DL (1.8-2.4); POTASSIUM SERUM 4.5 MEQ/L (3.5-5.1)
[2022-08-01 06:27] LABS: CK-MB VALUE MASS 2.3 NG/ML (<3.6); MB/CK RELATIVE INDEX 1.93 (< OR =4)
[2022-08-01] MEDS: INSULIN LISPRO (NovoLOG) PER UNIT SC SCH ×4 (08:44→20:05)
[2022-08-01] MEDS: guaiFENesin 200 MG TAB PO SCH ×2 (08:45→20:01)
[2022-08-01] MEDS: ASPIRIN 81MG ENTERIC TABLET PO SCH (08:45)
[2022-08-01] MEDS: PREGABALIN 50 MG CAP (LYRICA) PO SCH ×2 (08:45→20:02)
[2022-08-01] MEDS: DULoxetine 30MG CAPSULE (CYMBALTA) PO SCH (08:45)
[2022-08-01] MEDS: FERROUS SULFATE 325MG TAB PO SCH (08:45)
[2022-08-01] MEDS: CLOPIDOGREL 75 MG TAB PO SCH (08:45)
[2022-08-01 10:57] LABS: CORTISOL AM 17.5 UG/DL (4.3-22.4)
[2022-08-01 12:14] LABS: HEMATOCRIT 32.2 % (36.0-47.0)
[2022-08-01] MEDS: ACETAMINOPHEN TAB 650MG DOSE (2X325MG) PO PRN (15:27)
[2022-08-01] MEDS: MIRALAX *UNIT DOSE* 17GM PACKET PO PRN (17:09)
[2022-08-01 18:47] LABS: HEMATOCRIT 31.5 % (36.0-47.0); HEMOGLOBIN 9.7 g/dl (12.0-15.5)
[2022-08-01] MEDS: REMDESIVIR 100 MG in NS 250 ML IV SCH (19:53)
[2022-08-01] MEDS: rOPINIRole 1MG TAB PO SCH (20:01)
[2022-08-01] MEDS: ATORVASTATIN 20 MG TAB PO SCH (20:02)
[2022-08-01] MEDS: SODIUM CHLORIDE 0.9% INJ 10 ML SYR IV SCH (20:06)
[2022-08-02] VITALS: BP 103/57
[2022-08-02 00:28] LABS: HEMATOCRIT 28.9 % (36.0-47.0); HEMOGLOBIN 8.9 g/dl (12.0-15.5)
[2022-08-02 04:00] VITALS: BP 116/65
[2022-08-02 05:29] LABS: HEMATOCRIT 27.3 % (36.0-47.0); HEMOGLOBIN 8.7 g/dl (12.0-15.5); MEAN CORPUSCULAR HEMOGLOBIN 30.7 pg (27.0-33.0); MEAN CORPUSCULAR HGB CONC 31.9 g/dl (32.0-36.5); MEAN CORPUSCULAR VOLUME 96.5 fl (80.0-96.0); PLATELET COUNT, AUTOMATED 274 10^3/uL (150-450); RED BLOOD COUNT 2.83 10^6/uL (4.00-5.40); WHITE BLOOD COUNT 8.2 10^3/uL (4.0-10.0)
[2022-08-02 06:09] LABS: BLOOD UREA NITROGEN 23 MG/DL (7-18); CALCIUM LEVEL 8.4 MG/DL (8.8-10.2); CARBON DIOXIDE LEVEL 26 MEQ/L (21-32); CHLORIDE LEVEL 108 MEQ/L (98-107); GLOMERULAR FILTRATION RATE > 60.0 (>39); GLUCOSE, FASTING 129 MG/DL (70-100); MAGNESIUM LEVEL 2.2 MG/DL (1.8-2.4); POTASSIUM SERUM 4.8 MEQ/L (3.5-5.1); SODIUM LEVEL 137 MEQ/L (136-145)
[2022-08-02 08:00] VITALS: BP 130/77
[2022-08-02] MEDS: ASPIRIN 81MG ENTERIC TABLET PO SCH (09:03)
[2022-08-02] MEDS: guaiFENesin 200 MG TAB PO SCH (09:03)
[2022-08-02] MEDS: FERROUS SULFATE 325MG TAB PO SCH (09:04)
[2022-08-02] MEDS: CLOPIDOGREL 75 MG TAB PO SCH (09:04)
[2022-08-02] MEDS: PREGABALIN 50 MG CAP (LYRICA) PO SCH (09:04)
[2022-08-02] MEDS: DULoxetine 30MG CAPSULE (CYMBALTA) PO SCH (09:04)
[2022-08-02] MEDS: INSULIN LISPRO (NovoLOG) PER UNIT SC SCH ×2 (09:04→11:30)
[2022-08-02] MEDS: MIRALAX *UNIT DOSE* 17GM PACKET PO PRN (09:39)
[2022-08-02] MEDS ORDERED: MOM 30ML SUSPENSION UDC PO ONE (09:55)
[2022-08-02 10:00] LABS: HEMATOCRIT 30.5 % (36.0-47.0); HEMOGLOBIN 9.4 g/dl (12.0-15.5)
[2022-08-02] MEDS ORDERED: METOPROLOL SUCC *XL* 12.5MG PER 1/2 TAB (TopROL *XL*) PO SCH (10:00)
[2022-08-02 11:23] VITALS: BP 120/67
[2022-08-02 11:25] VITALS: BP 120/67
[2022-08-02] MEDS ORDERED: MIRA1POW3 PO (11:44)
[2022-08-02 12:21] VITALS: BP 116/58
== END 2022-08-02 12:54 | disposition home or self-care (01) | DRG 811 ==
LOC: M ED 11:45 → EDBD 11:45 → OBSVTOIN 16:57 → M ED INP 16:57 → ENRESERV 07-31 12:38 → M ICU 07-31 14:30
PROVIDERS: ADMIT Internal Medicine; ATTEND Internal Medicine
PROC: 30233N1 Transfusion of Nonautologous Red Blood Cells into Peripheral Vein, Percutaneous Approach (ICD-10-PCS; principal; 2022-07-30)
DX: D50.9 Iron deficiency anemia, unspecified (principal); U07.1 COVID-19; I50.22 Chronic systolic (congestive) heart failure; I24.8 Other forms of acute ischemic heart disease; I25.10 Atherosclerotic heart disease of native coronary artery without angina pectoris; I25.2 Old myocardial infarction; Z95.5 Presence of coronary angioplasty implant and graft; I44.1 Atrioventricular block, second degree; Z95.0 Presence of cardiac pacemaker; I11.0 Hypertensive heart disease with heart failure; Z86.73 Personal history of transient ischemic attack (TIA), and cerebral infarction without residual deficits; E11.42 Type 2 diabetes mellitus with diabetic polyneuropathy; E78.5 Hyperlipidemia, unspecified; M54.9 Dorsalgia, unspecified; G89.29 Other chronic pain; Z79.82 Long term (current) use of aspirin; I48.91 Unspecified atrial fibrillation; G25.81 Restless legs syndrome; F39 Unspecified mood [affective] disorder; K59.00 Constipation, unspecified; Z96.641 Presence of right artificial hip joint; Z98.49 Cataract extraction status, unspecified eye; F17.210 Nicotine dependence, cigarettes, uncomplicated; I95.9 Hypotension, unspecified; E86.1 Hypovolemia

== ENCOUNTER → 2022-10-05 | Outpatient (REF) | payer MEDICARE, OTHER ==
[~2022-10-05] MED LIST changes: +ASPI81TA26 PO; +CLOP75TA2 PO; +CYCL-707 PO; +FERR325T19 PO; +FURO20TA2 PO; +JARD1TAB PO; +METO1TAB32 PO; +MIRA1POW3 PO
[2022-10-05 16:56] LABS: PERCENT SATURATION 12.1 % (13.2-45.0)
== END ==
LOC: M LAB REF 16:16
PROVIDERS: ATTEND Internal Medicine
DX: D50.9 Iron deficiency anemia, unspecified (principal)

== ENCOUNTER → 2023-01-20 | Outpatient (CLI) | payer MEDICARE, MEDICAID | LOC: M PLAIMG 13:44 | PROVIDERS: ATTEND Nurse Practitioner Family | DX: Z53.9 Procedure and treatment not carried out, unspecified reason (principal) ==

== ENCOUNTER → 2023-03-07 | Outpatient (REF) | payer MEDICARE, MEDICAID ==
[2023-03-07 17:02] LABS: PERCENT SATURATION 16.3 % (13.2-45.0)
== END ==
LOC: M LAB REF 16:11
PROVIDERS: ATTEND Internal Medicine
DX: D64.9 Anemia, unspecified (principal)

== ENCOUNTER → 2023-05-22 | Outpatient (CLI) | payer MEDICARE, MEDICAID ==
[~2023-05-22] MED LIST changes: +ROPI3TAB18; +ROPI3TAB18 PO; -ROPI3TAB3; -ROPI3TAB3 PO
== END ==
LOC: M RAD 13:03
PROVIDERS: ATTEND Podiatrist Foot & Ankle Surgery
DX: I73.89 Other specified peripheral vascular diseases (principal)

== ENCOUNTER → 2023-05-30 | Outpatient (CLI) | payer MEDICARE, MEDICAID | LOC: M RAD 13:42 | PROVIDERS: ATTEND Internal Medicine | DX: F17.210 Nicotine dependence, cigarettes, uncomplicated (principal) ==

== ENCOUNTER 2023-08-14 17:13 | Inpatient (IN) | payer MEDICARE, MEDICAID ==
[~2023-08-14] VITALS: Ht 154.9 cm; Wt 82.9 kg
[~2023-08-14 17:13] MED LIST changes: +GLIP5TAB17 PO; -GLIP5TAB8 PO; -PREG50CA2 PO; +PREG50CA3 PO
[2023-08-14 18:53] LABS: BASO # 0.1 10^3/uL (0.0-0.2); BASO % 0.7 % (0.0-1.0); EOS # 0.1 10^3/uL (0.0-0.5); EOS % 1.2 % (0.0-3.0); HEMATOCRIT 41.4 % (36.0-47.0); HEMOGLOBIN 13.7 g/dl (12.0-15.5); LYMPH # 2.4 10^3/uL (1.5-5.0); LYMPH % 26.9 % (24.0-44.0); MEAN CORPUSCULAR HEMOGLOBIN 30.9 pg (27.0-33.0); MEAN CORPUSCULAR HGB CONC 33.1 g/dl (32.0-36.5); MEAN CORPUSCULAR VOLUME 93.5 fl (80.0-96.0); MONO # 0.6 10^3/uL (0.0-0.8); MONO % 6.3 % (2.0-8.0); NEUTROPHILS # 5.7 10^3/uL (1.5-8.5); NEUTROPHILS % 64.8 % (36.0-66.0); PLATELET COUNT, AUTOMATED 198 10^3/uL (150-450); RED BLOOD COUNT 4.43 10^6/uL (4.00-5.40); WHITE BLOOD COUNT 8.9 10^3/uL (4.0-10.0)
[2023-08-14 19:07] LABS: INR 1.1; PROTHROMBIN TIME 13.9 SECONDS (12.5-14.5)
[2023-08-14 19:17] LABS: CK-MB VALUE MASS 2.6 NG/ML (<3.6)
[2023-08-14 19:19] LABS: MB/CK RELATIVE INDEX 2.32 (< OR =4)
[2023-08-14 19:20] LABS: ALBUMIN 3.3 G/DL (3.2-5.2); BILIRUBIN,DIRECT 0.2 MG/DL (<0.4); BILIRUBIN,TOTAL 0.6 MG/DL (0.3-1.2); CREATININE FOR GFR 1.03 MG/DL (0.55-1.30); GLOMERULAR FILTRATION RATE 55.2 (>39); POTASSIUM SERUM 4.3 MMOL/L (3.5-5.1); TOTAL PROTEIN 6.7 G/DL (5.7-8.2)
[2023-08-14 19:21] LABS: THYROID STIMULATING HORMONE 1.772 uIU/ML (0.55-4.78); THYROXINE (T4) 7.3 UG/DL (4.5-10.9)
[2023-08-14 19:43] LABS: CK-MB VALUE MASS 2.5 NG/ML (<3.6)
[2023-08-14 19:44] LABS: MB/CK RELATIVE INDEX 2.11 (< OR =4)
[2023-08-14] MEDS ORDERED: ISOVUE-370 76% 100ML VIAL As Ordered ONE (21:23)
[2023-08-14] MEDS ORDERED: ATOR40TA75 PO (23:17)
[2023-08-14] MEDS ORDERED: VITMTA PO (23:17)
[2023-08-14] MEDS ORDERED: MIRA1POW3 PO (23:17)
[2023-08-14] MEDS ORDERED: LOSA50TA28 PO (23:17)
[2023-08-14] MEDS ORDERED: HOME MED LIST COMPLETE! XX SCH (23:20)
[2023-08-15] VITALS (7 sets, daily range): BP systolic 96–120; BP diastolic 52–68; TEMP 97.1–97.6; O2SAT 94–98
[2023-08-15] MEDS ORDERED: HEPARIN DRIP 25,000 UNITS in IV 1 EA IV SCH (01:30)
[2023-08-15] MEDS ORDERED: MOM 30ML SUSPENSION UDC PO PRN (01:30)
[2023-08-15] MEDS ORDERED: HEPARIN SOD (PORCINE) 5000UNITS/ML 1ML VIAL/SYRINGE IV PRN (01:30)
[2023-08-15] MEDS ORDERED: GLUCOSE 4GM CHEW TABLET PO PRN (01:55)
[2023-08-15] MEDS ORDERED: DEXTROSE 50% 50ML SYRINGE IV PRN (01:55)
[2023-08-15] MEDS ORDERED: GLUCAGON INJ 1MG VIAL SC PRN (01:55)
[2023-08-15 02:31] LABS: HEMATOCRIT 41.1 % (36.0-47.0); HEMOGLOBIN 13.4 g/dl (12.0-15.5); MEAN CORPUSCULAR HEMOGLOBIN 31.1 pg (27.0-33.0); MEAN CORPUSCULAR HGB CONC 32.6 g/dl (32.0-36.5); MEAN CORPUSCULAR VOLUME 95.4 fl (80.0-96.0); PLATELET COUNT, AUTOMATED 192 10^3/uL (150-450); RED BLOOD COUNT 4.31 10^6/uL (4.00-5.40); WHITE BLOOD COUNT 8.4 10^3/uL (4.0-10.0)
[2023-08-15] MEDS ORDERED: PREGABALIN 50 MG CAP (LYRICA) PO SCH (09:00)
[2023-08-15] MEDS ORDERED: LOSARTAN 50MG TABLET PO SCH (09:00)
[2023-08-15] MEDS ORDERED: DULoxetine 30MG CAPSULE (CYMBALTA) PO SCH (09:00)
[2023-08-15] MEDS ORDERED: ASPIRIN 81MG CHEW TABLET PO SCH (09:00)
[2023-08-15] MEDS: DOCUSATE SODIUM 100MG CAPSULE PO SCH ×2 (09:35→20:38)
[2023-08-15] MEDS: INSULIN LISPRO (NovoLOG) PER UNIT SC SCH ×3 (09:35→17:44)
[2023-08-15 13:47] LABS: BASO # 0.1 10^3/uL (0.0-0.2); BASO % 0.8 % (0.0-1.0); EOS # 0.2 10^3/uL (0.0-0.5); EOS % 2.7 % (0.0-3.0); HEMATOCRIT 43.1 % (36.0-47.0); HEMOGLOBIN 14.2 g/dl (12.0-15.5); LYMPH # 2.9 10^3/uL (1.5-5.0); LYMPH % 35.5 % (24.0-44.0); MEAN CORPUSCULAR HEMOGLOBIN 31.1 pg (27.0-33.0); MEAN CORPUSCULAR HGB CONC 32.9 g/dl (32.0-36.5); MEAN CORPUSCULAR VOLUME 94.5 fl (80.0-96.0); MONO # 0.5 10^3/uL (0.0-0.8); MONO % 5.4 % (2.0-8.0); NEUTROPHILS # 4.6 10^3/uL (1.5-8.5); NEUTROPHILS % 55.4 % (36.0-66.0); PLATELET COUNT, AUTOMATED 201 10^3/uL (150-450); RED BLOOD COUNT 4.56 10^6/uL (4.00-5.40); WHITE BLOOD COUNT 8.3 10^3/uL (4.0-10.0)
[2023-08-15 13:58] LABS: CREATININE FOR GFR 0.97 MG/DL (0.55-1.30); GLOMERULAR FILTRATION RATE 59.1 (>39); POTASSIUM SERUM 4.1 MMOL/L (3.5-5.1)
[2023-08-15] MEDS ORDERED: ENOXAPARIN 80MG/0.8ML SYRINGE (J1650 PER 10MG) SC SCH ×2 (14:00→23:55)
[2023-08-15 14:02] LABS: CK-MB VALUE MASS 4.2 NG/ML (<3.6)
[2023-08-15 14:10] LABS: MB/CK RELATIVE INDEX 1.81 (< OR =4)
[2023-08-15] MEDS ORDERED: rOPINIRole 1MG TAB PO SCH ×2 (17:00→21:00)
[2023-08-15] MEDS ORDERED: ATORVASTATIN 20 MG TAB PO SCH (21:00)
[2023-08-15] MEDS ORDERED: INSULIN LISPRO (NovoLOG) PER UNIT SC SCH (21:00)
[2023-08-15] MEDS ORDERED: LOSARTAN 25 MG TAB PO SCH (21:00)
[2023-08-15] MEDS ORDERED: PREGABALIN 100 MG CAP (LYRICA) PO SCH (21:00)
[2023-08-15] MEDS ORDERED: LOVE0.6I2 SC (22:37)
[2023-08-15] MEDS ORDERED: INSUHUMDS SC ×2 (22:37)
[2023-08-15] MEDS ORDERED: ASPI81CH8 PO (22:37)
[2023-08-16 04:06] VITALS: BP 101/60; TEMP 97.3; O2SAT 95
[2023-08-16 05:44] LABS: BASO % 0.5 % (0.0-1.0); EOS # 0.2 10^3/uL (0.0-0.5); EOS % 3.6 % (0.0-3.0); HEMATOCRIT 37.9 % (36.0-47.0); HEMOGLOBIN 12.4 g/dl (12.0-15.5); LYMPH # 2.4 10^3/uL (1.5-5.0); LYMPH % 36.4 % (24.0-44.0); MEAN CORPUSCULAR HEMOGLOBIN 31.2 pg (27.0-33.0); MEAN CORPUSCULAR HGB CONC 32.7 g/dl (32.0-36.5); MEAN CORPUSCULAR VOLUME 95.2 fl (80.0-96.0); MONO # 0.5 10^3/uL (0.0-0.8); MONO % 8.2 % (2.0-8.0); NEUTROPHILS # 3.3 10^3/uL (1.5-8.5); NEUTROPHILS % 51.1 % (36.0-66.0); PLATELET COUNT, AUTOMATED 182 10^3/uL (150-450); RED BLOOD COUNT 3.98 10^6/uL (4.00-5.40); WHITE BLOOD COUNT 6.5 10^3/uL (4.0-10.0)
[2023-08-16 06:02] LABS: CALCIUM LEVEL 8.4 MG/DL (8.3-10.6); CREATININE FOR GFR 1.15 MG/DL (0.55-1.30); GLOMERULAR FILTRATION RATE 48.6 (>39); POTASSIUM SERUM 4.6 MMOL/L (3.5-5.1)
== END 2023-08-16 07:05 | disposition short-term general hospital (02) | DRG 281 ==
LOC: EDBD 17:13 → M ED 17:13 → M ED INP 08-15 01:30 → M PCU 08-15 03:13
PROVIDERS: ADMIT Family Medicine; ATTEND Internal Medicine Nephrology
PROC: B246ZZZ Ultrasonography of Right and Left Heart (ICD-10-PCS; principal; 2023-08-15)
DX: I21.4 Non-ST elevation (NSTEMI) myocardial infarction (principal); I44.2 Atrioventricular block, complete; I50.22 Chronic systolic (congestive) heart failure; I25.10 Atherosclerotic heart disease of native coronary artery without angina pectoris; I11.0 Hypertensive heart disease with heart failure; E11.40 Type 2 diabetes mellitus with diabetic neuropathy, unspecified; E78.5 Hyperlipidemia, unspecified; G89.29 Other chronic pain; M54.9 Dorsalgia, unspecified; E66.9 Obesity, unspecified; I25.5 Ischemic cardiomyopathy; F17.200 Nicotine dependence, unspecified, uncomplicated; D64.9 Anemia, unspecified; Z66 Do not resuscitate; Z96.641 Presence of right artificial hip joint; Z98.49 Cataract extraction status, unspecified eye; Z98.1 Arthrodesis status; Z95.0 Presence of cardiac pacemaker; Z86.73 Personal history of transient ischemic attack (TIA), and cerebral infarction without residual deficits; Z79.02 Long term (current) use of antithrombotics/antiplatelets; Z79.899 Other long term (current) drug therapy; Z95.5 Presence of coronary angioplasty implant and graft; G25.81 Restless legs syndrome; Z79.4 Long term (current) use of insulin; Z79.82 Long term (current) use of aspirin; Z68.34 Body mass index [BMI] 34.0-34.9, adult

== ENCOUNTER 2023-10-29 09:03 | Emergency (ER) | payer MEDICARE, MEDICAID ==
[~2023-10-29] VITALS: Ht 152.4 cm; Wt 85.1 kg
[~2023-10-29 09:03] MED LIST changes: +ASPI81CH8 PO; +ATOR40TA75 PO; +IRBE75TA11 PO; -IRBE75TA4 PO; +LOVE0.6I2 SC; +VITMTA PO
[2023-10-29 11:00] VITALS: O2SAT 99
[2023-10-29 11:01] VITALS: BP 163/85
[2023-10-29 11:19] VITALS: TEMP 96.5
== END 2023-10-29 12:15 | disposition home or self-care (01) ==
LOC: M ED 09:03 → EDBD 09:03 → M ED 12:15
DX: M67.321 Transient synovitis, right elbow (principal); I25.10 Atherosclerotic heart disease of native coronary artery without angina pectoris; I50.9 Heart failure, unspecified; E11.9 Type 2 diabetes mellitus without complications; I10 Essential (primary) hypertension; E78.5 Hyperlipidemia, unspecified; D64.9 Anemia, unspecified; M54.9 Dorsalgia, unspecified; F17.200 Nicotine dependence, unspecified, uncomplicated; Z79.84 Long term (current) use of oral hypoglycemic drugs; Z79.899 Other long term (current) drug therapy

== ENCOUNTER 2023-11-04 10:06 | Observation (INO) | payer MEDICARE, MEDICAID ==
[2023-11-04] MEDS ORDERED: KETOROLAC 30 MG/ML 1ML VIAL IV ONE (14:35)
[2023-11-04] MEDS ORDERED: KETOROLAC 60MG 2ML VIAL IM ONE (14:45)
[2023-11-04] MEDS ORDERED: MEDR4PAK PO (16:42)
[2023-11-04] MEDS ORDERED: HYDR-4571 PO (16:42)
[2023-11-04 17:51] LABS: HEMATOCRIT 41.5 % (36.0-47.0); HEMOGLOBIN 13.6 g/dl (12.0-15.5); MEAN CORPUSCULAR HEMOGLOBIN 30.6 pg (27.0-33.0); MEAN CORPUSCULAR HGB CONC 32.8 g/dl (32.0-36.5); MEAN CORPUSCULAR VOLUME 93.3 fl (80.0-96.0); PLATELET COUNT, AUTOMATED 231 10^3/uL (150-450); RED BLOOD COUNT 4.45 10^6/uL (4.00-5.40); WHITE BLOOD COUNT 8.4 10^3/uL (4.0-10.0)
[2023-11-04] MEDS ORDERED: GLUCOSE 4GM CHEW TABLET PO PRN (20:50)
[2023-11-04] MEDS ORDERED: GLUCAGON INJ 1MG VIAL SC PRN (20:50)
[2023-11-04] MEDS ORDERED: DEXTROSE 50% 50ML SYRINGE IV PRN (20:50)
[2023-11-04] MEDS ORDERED: NICOTINE 14 MG/24 HR TRANSDERMAL TD PRN (20:55)
[2023-11-04] MEDS: INSULIN LISPRO (NovoLOG) PER UNIT SC SCH (21:00)
[2023-11-04] MEDS ORDERED: METO1TAB32 PO (21:55)
[2023-11-04] MEDS ORDERED: EZET10TA21 PO (21:55)
[2023-11-04] MEDS ORDERED: HOME MED LIST COMPLETE! XX SCH (22:00)
[2023-11-04] MEDS: ACETAMINOPHEN TAB 650MG DOSE (2X325MG) PO PRN (22:29)
[2023-11-04 23:00] VITALS: BP 138/84; TEMP 97.5; O2SAT 99
[2023-11-04] MEDS ORDERED: MIRALAX *UNIT DOSE* 17GM PACKET PO PRN (23:50)
[2023-11-05] MEDS ORDERED: CYCLOBENZAPRINE 10MG TABLET PO PRN (01:10)
[2023-11-05] MEDS: rOPINIRole 1MG TAB PO SCH ×2 (01:50→21:21)
[2023-11-05] MEDS: LOSARTAN 50MG TABLET PO SCH ×2 (01:50→08:31)
[2023-11-05] MEDS: CYCLOBENZAPRINE 10MG TABLET PO PRN ×2 (01:51→17:59)
[2023-11-05] MEDS: PREGABALIN 100 MG CAP (LYRICA) PO SCH ×2 (01:51→21:22)
[2023-11-05 06:00] VITALS: BP 134/79; TEMP 97.5; O2SAT 98
[2023-11-05] MEDS: DULoxetine 30MG CAPSULE (CYMBALTA) PO SCH (08:30)
[2023-11-05] MEDS: ASPIRIN 81MG CHEW TABLET PO SCH (08:30)
[2023-11-05] MEDS: PREGABALIN 75 MG CAP(LYRICA) PO SCH (08:31)
[2023-11-05] MEDS: EZETIMIBE 10MG TABLET (ZETIA) PO SCH (08:31)
[2023-11-05] MEDS: METOPROLOL SUCC *XL* 25MG TAB (TopROL *XL*) PO SCH (08:31)
[2023-11-05] MEDS: CLOPIDOGREL 75 MG TAB PO SCH (08:31)
[2023-11-05] MEDS: INSULIN LISPRO (NovoLOG) PER UNIT SC SCH ×4 (08:32→21:00)
[2023-11-05 13:34] LABS: CALCIUM LEVEL 8.7 MG/DL (8.3-10.6); CREATININE FOR GFR 1.31 MG/DL (0.55-1.30); GLOMERULAR FILTRATION RATE 41.8 (>39); POTASSIUM SERUM 4.5 MMOL/L (3.5-5.1)
[2023-11-05] MEDS ORDERED: LR 1,000 ML IV SCH (13:40)
[2023-11-05 14:35] VITALS: BP 108/68; TEMP 97.6; O2SAT 93
[2023-11-05 19:59] VITALS: BP 146/82; TEMP 98.1; O2SAT 97
[2023-11-05] MEDS: ATORVASTATIN 20 MG TAB PO SCH (21:21)
[2023-11-06 06:00] VITALS: BP 144/82; TEMP 97.9; O2SAT 93
[2023-11-06] MEDS: INSULIN LISPRO (NovoLOG) PER UNIT SC SCH ×4 (08:33→20:05)
[2023-11-06] MEDS: EZETIMIBE 10MG TABLET (ZETIA) PO SCH (08:33)
[2023-11-06] MEDS: DULoxetine 30MG CAPSULE (CYMBALTA) PO SCH (08:34)
[2023-11-06] MEDS: METOPROLOL SUCC *XL* 25MG TAB (TopROL *XL*) PO SCH (08:34)
[2023-11-06] MEDS: ASPIRIN 81MG CHEW TABLET PO SCH (08:34)
[2023-11-06] MEDS: CLOPIDOGREL 75 MG TAB PO SCH (08:34)
[2023-11-06] MEDS: PREGABALIN 75 MG CAP(LYRICA) PO SCH (08:34)
[2023-11-06 14:06] VITALS: BP 104/58; TEMP 97.7; O2SAT 96
[2023-11-06 14:19] LABS: BLOOD UREA NITROGEN 26 MG/DL (9-23); CARBON DIOXIDE LEVEL 25 MMOL/L (20-31); CHLORIDE LEVEL 108 MMOL/L (98-107); CREATININE FOR GFR 0.95 MG/DL (0.55-1.30); GLOMERULAR FILTRATION RATE > 60.0 (>39); GLUCOSE, FASTING 102 MG/DL (74-106); POTASSIUM SERUM 4.6 MMOL/L (3.5-5.1); SODIUM LEVEL 140 MMOL/L (136-145)
[2023-11-06] MEDS: CYCLOBENZAPRINE 10MG TABLET PO PRN (16:13)
[2023-11-06] MEDS: rOPINIRole 1MG TAB PO SCH (20:04)
[2023-11-06] MEDS: PREGABALIN 100 MG CAP (LYRICA) PO SCH (20:04)
[2023-11-06] MEDS: ATORVASTATIN 20 MG TAB PO SCH (20:05)
[2023-11-06 20:12] VITALS: BP 119/56; TEMP 97.7; O2SAT 91
[2023-11-06] MEDS: LOSARTAN 50MG TABLET PO SCH (22:00)
[2023-11-07 06:00] VITALS: BP 159/88; TEMP 97.9; O2SAT 94
[2023-11-07] MEDS: METOPROLOL SUCC *XL* 25MG TAB (TopROL *XL*) PO SCH (09:00)
[2023-11-07] MEDS: INSULIN LISPRO (NovoLOG) PER UNIT SC SCH ×4 (09:05→20:30)
[2023-11-07] MEDS: DULoxetine 30MG CAPSULE (CYMBALTA) PO SCH (09:05)
[2023-11-07] MEDS: EZETIMIBE 10MG TABLET (ZETIA) PO SCH (09:05)
[2023-11-07] MEDS: LOSARTAN 50MG TABLET PO SCH ×2 (09:09→20:29)
[2023-11-07] MEDS: CLOPIDOGREL 75 MG TAB PO SCH (09:10)
[2023-11-07] MEDS: ASPIRIN 81MG CHEW TABLET PO SCH (09:11)
[2023-11-07] MEDS: PREGABALIN 75 MG CAP(LYRICA) PO SCH (09:23)
[2023-11-07] MEDS: ACETAMINOPHEN TAB 650MG DOSE (2X325MG) PO PRN (18:46)
[2023-11-07 20:20] VITALS: BP 110/66; TEMP 96.7; O2SAT 97
[2023-11-07] MEDS: PREGABALIN 100 MG CAP (LYRICA) PO SCH (20:29)
[2023-11-07] MEDS: ATORVASTATIN 20 MG TAB PO SCH (20:29)
[2023-11-07] MEDS: rOPINIRole 1MG TAB PO SCH (20:29)
[2023-11-08 06:00] VITALS: BP 129/71; TEMP 97.7; O2SAT 96
[2023-11-08] MEDS: DULoxetine 30MG CAPSULE (CYMBALTA) PO SCH (08:09)
[2023-11-08] MEDS: EZETIMIBE 10MG TABLET (ZETIA) PO SCH (08:09)
[2023-11-08] MEDS: METOPROLOL SUCC *XL* 25MG TAB (TopROL *XL*) PO SCH (08:12)
[2023-11-08] MEDS: LOSARTAN 50MG TABLET PO SCH ×2 (08:13→20:52)
[2023-11-08] MEDS: ASPIRIN 81MG CHEW TABLET PO SCH (08:13)
[2023-11-08] MEDS: PREGABALIN 75 MG CAP(LYRICA) PO SCH (08:13)
[2023-11-08] MEDS: CLOPIDOGREL 75 MG TAB PO SCH (08:13)
[2023-11-08] MEDS: CYCLOBENZAPRINE 10MG TABLET PO PRN ×2 (08:14→20:52)
[2023-11-08] MEDS: INSULIN LISPRO (NovoLOG) PER UNIT SC SCH ×4 (08:14→20:56)
[2023-11-08] MEDS: ACETAMINOPHEN TAB 650MG DOSE (2X325MG) PO PRN (08:16)
[2023-11-08 14:49] VITALS: BP 140/93; TEMP 98.2; O2SAT 99
[2023-11-08] MEDS ORDERED: BISACODYL 10MG SUPP PR PRN ×2 (17:05→17:35)
[2023-11-08 20:08] VITALS: BP 124/65; TEMP 97.7; O2SAT 99
[2023-11-08] MEDS: PREGABALIN 100 MG CAP (LYRICA) PO SCH (20:52)
[2023-11-08] MEDS: rOPINIRole 1MG TAB PO SCH (20:52)
[2023-11-08] MEDS: ATORVASTATIN 20 MG TAB PO SCH (20:52)
[2023-11-09 05:35] VITALS: BP 124/67; TEMP 97.7; O2SAT 99
[2023-11-09] MEDS: INSULIN LISPRO (NovoLOG) PER UNIT SC SCH (08:15)
[2023-11-09] MEDS: EZETIMIBE 10MG TABLET (ZETIA) PO SCH (08:15)
[2023-11-09] MEDS: DULoxetine 30MG CAPSULE (CYMBALTA) PO SCH (08:16)
[2023-11-09] MEDS: CLOPIDOGREL 75 MG TAB PO SCH (08:16)
[2023-11-09] MEDS: ASPIRIN 81MG CHEW TABLET PO SCH (08:16)
[2023-11-09] MEDS: PREGABALIN 75 MG CAP(LYRICA) PO SCH (08:16)
[2023-11-09] MEDS: ACETAMINOPHEN TAB 650MG DOSE (2X325MG) PO PRN (08:19)
[2023-11-09 08:20] VITALS: BP 93/53
[2023-11-09] MEDS: LOSARTAN 50MG TABLET PO SCH (08:20)
[2023-11-09] MEDS: METOPROLOL SUCC *XL* 25MG TAB (TopROL *XL*) PO SCH (08:20)
== END 2023-11-09 10:50 ==
LOC: M ED 10:06 → INTOOBSV 20:50 → M ED INP 20:50 → ENRESERV 22:37 → M MS5PR 22:58
PROVIDERS: ADMIT Internal Medicine; ATTEND Student in an Organized Health Care Education/Training Program
DX: M48.07 Spinal stenosis, lumbosacral region (principal); R26.89 Other abnormalities of gait and mobility; Z66 Do not resuscitate; I50.32 Chronic diastolic (congestive) heart failure; I25.2 Old myocardial infarction; I44.1 Atrioventricular block, second degree; E78.5 Hyperlipidemia, unspecified; M51.17 Intervertebral disc disorders with radiculopathy, lumbosacral region; I11.0 Hypertensive heart disease with heart failure; E11.9 Type 2 diabetes mellitus without complications; D64.9 Anemia, unspecified; M19.90 Unspecified osteoarthritis, unspecified site; M81.0 Age-related osteoporosis without current pathological fracture; I25.10 Atherosclerotic heart disease of native coronary artery without angina pectoris; N39.3 Stress incontinence (female) (male); G25.81 Restless legs syndrome; F17.210 Nicotine dependence, cigarettes, uncomplicated; Z96.643 Presence of artificial hip joint, bilateral; M41.86 Other forms of scoliosis, lumbar region; Z98.41 Cataract extraction status, right eye; Z95.0 Presence of cardiac pacemaker; Z86.73 Personal history of transient ischemic attack (TIA), and cerebral infarction without residual deficits; Z95.5 Presence of coronary angioplasty implant and graft; Z79.82 Long term (current) use of aspirin; Z79.02 Long term (current) use of antithrombotics/antiplatelets; Z79.899 Other long term (current) drug therapy; Z79.84 Long term (current) use of oral hypoglycemic drugs; Z20.822 Contact with and (suspected) exposure to COVID-19; Z98.1 Arthrodesis status
CPT/HCPCS: 36415; 72110; 72131; 80047; 80048; 81001; 85027; 87426; 87635; 96372; 97110; 97116; 97165; 97530; 97535; 99284; G0378; J1815; J1885

== ENCOUNTER → 2023-11-10 | Outpatient (REF) ==
[~2023-11-10] MED LIST changes: +EZET10TA21 PO; +HYDR-4571 PO; +MEDR4PAK PO
[2023-11-10 11:27] LABS: HEMATOCRIT 35.5 % (36.0-47.0); HEMOGLOBIN 11.6 g/dl (12.0-15.5); MEAN CORPUSCULAR HEMOGLOBIN 30.6 pg (27.0-33.0); MEAN CORPUSCULAR HGB CONC 32.7 g/dl (32.0-36.5); MEAN CORPUSCULAR VOLUME 93.7 fl (80.0-96.0); PLATELET COUNT, AUTOMATED 191 10^3/uL (150-450); RED BLOOD COUNT 3.79 10^6/uL (4.00-5.40); WHITE BLOOD COUNT 6.9 10^3/uL (4.0-10.0)
[2023-11-10 11:59] LABS: ALBUMIN 3.2 G/DL (3.2-5.2); ALKALINE PHOSPHATASE 103 U/L (46-116); ALT/SGPT 14 U/L (7.0-40); AST/SGOT 17 U/L (<34); BILIRUBIN,TOTAL 0.5 MG/DL (0.3-1.2); BLOOD UREA NITROGEN 30 MG/DL (9-23); CARBON DIOXIDE LEVEL 27 MMOL/L (20-31); CHLORIDE LEVEL 103 MMOL/L (98-107); CHOLESTEROL LEVEL 122 MG/DL (<200); CHOLESTEROL RISK RATIO 2.99 (<5); CREATININE FOR GFR 0.87 MG/DL (0.55-1.30); GLOMERULAR FILTRATION RATE > 60.0 (>39); GLUCOSE, FASTING 169 MG/DL (74-106); HDL CHOLESTEROL 40.8 MG/DL (>40); NON-HDL-C 81.2 MG/DL; POTASSIUM SERUM 4.7 MMOL/L (3.5-5.1); SODIUM LEVEL 137 MMOL/L (136-145); TOTAL PROTEIN 6.6 G/DL (5.7-8.2); TRIGLYCERIDES LEVEL 151 MG/DL (<150)
[2023-11-10 12:08] LABS: HEMOGLOBIN A1c 7.8 % (4.0-6.0)
== END ==
LOC: SKLAB3 07:24
PROVIDERS: ATTEND Internal Medicine
DX: I10 Essential (primary) hypertension (principal); E11.9 Type 2 diabetes mellitus without complications

== ENCOUNTER 2023-11-15 12:44 | Inpatient (IN) | payer MEDICARE, MEDICAID ==
[2023-11-15] VITALS (10 sets, daily range): BP systolic 96–130; BP diastolic 49–88; TEMP 97–97.8; O2SAT 92–100
[~2023-11-15] VITALS: Ht 154.9 cm; Wt 82.8 kg
[~2023-11-15 12:44] MED LIST changes: -ASPI-161 PO; -BISA10SU27 PR; -FLEEENE12 PR; -MILKSUS3 PO; -MIRA1POW3 PO; +MIRA33506 PO
[2023-11-15] MEDS: NS 1,000 ML IV SCH ×2 (13:15)
[2023-11-15] MEDS: LR 1,000 ML IV ONE (13:40)
[2023-11-15] MEDS: PANTOPRAZOLE 40MG VIAL IV ONE (14:12)
[2023-11-15 14:15] LABS: BASO % 0.4 % (0.0-1.0); EOS # 0.2 10^3/uL (0.0-0.5); EOS % 1.6 % (0.0-3.0); HEMATOCRIT 21.6 % (36.0-47.0); LYMPH # 2.4 10^3/uL (1.5-5.0); LYMPH % 26.4 % (24.0-44.0); MEAN CORPUSCULAR HEMOGLOBIN 30.9 pg (27.0-33.0); MEAN CORPUSCULAR HGB CONC 31.9 g/dl (32.0-36.5); MEAN CORPUSCULAR VOLUME 96.9 fl (80.0-96.0); MONO # 0.5 10^3/uL (0.0-0.8); MONO % 4.9 % (2.0-8.0); NEUTROPHILS # 6.1 10^3/uL (1.5-8.5); NEUTROPHILS % 66.5 % (36.0-66.0); PLATELET COUNT, AUTOMATED 222 10^3/uL (150-450); RED BLOOD COUNT 2.23 10^6/uL (4.00-5.40); WHITE BLOOD COUNT 9.2 10^3/uL (4.0-10.0)
[2023-11-15 14:17] LABS: HEMOGLOBIN 6.9 g/dl (12.0-15.5)
[2023-11-15 14:21] LABS: ALBUMIN 2.9 G/DL (3.2-5.2); BILIRUBIN,TOTAL 0.3 MG/DL (0.3-1.2); CALCIUM LEVEL 8.3 MG/DL (8.3-10.6); CREATININE FOR GFR 1.11 MG/DL (0.55-1.30); GLOMERULAR FILTRATION RATE 50.6 (>39); MAGNESIUM LEVEL 2.4 MG/DL (1.8-2.4); MB/CK RELATIVE INDEX 1.16 (< OR =4); POTASSIUM SERUM 4.9 MMOL/L (3.5-5.1)
[2023-11-15 14:31] LABS: INR 1.21; PROTHROMBIN TIME 14.9 SECONDS (12.5-14.5)
[2023-11-15 14:32] LABS: PARTIAL THROMBOPLASTIN TIME 28.4 SECONDS (24.8-34.2)
[2023-11-15] MEDS ORDERED: MILKSUS3 PO (15:20)
[2023-11-15] MEDS ORDERED: FLEEENE12 PR (15:40)
[2023-11-15] MEDS ORDERED: BISA10SU27 PR (15:40)
[2023-11-15] MEDS ORDERED: ASPI-615 PO (15:40)
[2023-11-15 15:45] LABS: RSV AMPLIFICATION NEGATIVE (NEGATIVE)
[2023-11-15] MEDS ORDERED: GLUCAGON INJ 1MG VIAL SC PRN (15:45)
[2023-11-15] MEDS ORDERED: GLUCOSE 4GM CHEW TABLET PO PRN (15:45)
[2023-11-15] MEDS ORDERED: DEXTROSE 50% 50ML SYRINGE IV PRN (15:45)
[2023-11-15] MEDS ORDERED: HOME MED LIST COMPLETE! XX SCH (15:50)
[2023-11-15 16:09] LABS: MB/CK RELATIVE INDEX 1.07 (< OR =4)
[2023-11-15 16:49] LABS: PERCENT SATURATION 19.2 % (13.2-45.0)
[2023-11-15 16:56] LABS: FERRITIN 39.9 NG/ML (7.3-270.7); FOLATE 7.8 NG/ML (>5.4)
[2023-11-15] MEDS: INSULIN LISPRO (NovoLOG) PER UNIT SC SCH ×2 (17:30→21:00)
[2023-11-15] MEDS: CYCLOBENZAPRINE 10MG TABLET PO PRN (18:15)
[2023-11-15] MEDS: SUCRALFATE SUSP 1GM/10ML UD PO SCH (18:15)
[2023-11-15] MEDS: rOPINIRole 1MG TAB PO SCH (21:20)
[2023-11-15] MEDS: PREGABALIN 50 MG CAP (LYRICA) PO SCH (21:20)
[2023-11-15] MEDS: ATORVASTATIN 20 MG TAB PO SCH (21:20)
[2023-11-16] MEDS: PANTOPRAZOLE 40MG VIAL IV SCH (01:09)
[2023-11-16 01:16] VITALS: BP 147/71; TEMP 96.9; O2SAT 96
[2023-11-16 03:37] LABS: BASO # 0.1 10^3/uL (0.0-0.2); BASO % 0.6 % (0.0-1.0); EOS # 0.2 10^3/uL (0.0-0.5); EOS % 2.6 % (0.0-3.0); HEMATOCRIT 28.3 % (36.0-47.0); HEMOGLOBIN 9.6 g/dl (12.0-15.5); LYMPH # 1.8 10^3/uL (1.5-5.0); MEAN CORPUSCULAR HEMOGLOBIN 31.1 pg (27.0-33.0); MEAN CORPUSCULAR HGB CONC 33.9 g/dl (32.0-36.5); MEAN CORPUSCULAR VOLUME 91.6 fl (80.0-96.0); MONO # 0.4 10^3/uL (0.0-0.8); MONO % 5.5 % (2.0-8.0); NEUTROPHILS # 5.4 10^3/uL (1.5-8.5); NEUTROPHILS % 67.9 % (36.0-66.0); PLATELET COUNT, AUTOMATED 165 10^3/uL (150-450); RED BLOOD COUNT 3.09 10^6/uL (4.00-5.40)
[2023-11-16 03:56] VITALS: BP 107/56; TEMP 97.2; O2SAT 95
[2023-11-16 04:07] LABS: BLOOD UREA NITROGEN 41 MG/DL (9-23); CALCIUM LEVEL 7.7 MG/DL (8.3-10.6); CARBON DIOXIDE LEVEL 24 MMOL/L (20-31); CHLORIDE LEVEL 112 MMOL/L (98-107); CREATININE FOR GFR 0.94 MG/DL (0.55-1.30); GLOMERULAR FILTRATION RATE > 60.0 (>39); GLUCOSE, FASTING 129 MG/DL (74-106); MAGNESIUM LEVEL 2.1 MG/DL (1.8-2.4); POTASSIUM SERUM 4.5 MMOL/L (3.5-5.1); SODIUM LEVEL 139 MMOL/L (136-145)
[2023-11-16 07:36] VITALS: BP 121/89; TEMP 97.6; O2SAT 95
[2023-11-16] MEDS: ASPIRIN 81MG ENTERIC TABLET PO SCH (08:57)
[2023-11-16] MEDS: EZETIMIBE 10MG TABLET (ZETIA) PO SCH (08:57)
[2023-11-16] MEDS: PREGABALIN 50 MG CAP (LYRICA) PO SCH (08:57)
[2023-11-16] MEDS: DULoxetine 30MG CAPSULE (CYMBALTA) PO SCH (08:57)
[2023-11-16 11:38] VITALS: BP 124/62; TEMP 96.7; O2SAT 94
[2023-11-16 12:37] LABS: HEMATOCRIT 35.2 % (36.0-47.0); HEMOGLOBIN 11.5 g/dl (12.0-15.5)
[2023-11-16 16:00] VITALS: BP 128/68; TEMP 97.1; O2SAT 96
[2023-11-16] MEDS: MOM 30ML SUSPENSION UDC PO PRN (17:53)
[2023-11-16] MEDS: MIRALAX *UNIT DOSE* 17GM PACKET PO PRN (17:53)
[2023-11-16 18:19] LABS: HEMATOCRIT 31.7 % (36.0-47.0); HEMOGLOBIN 10.4 g/dl (12.0-15.5)
[2023-11-16 20:13] VITALS: BP 124/64; TEMP 97.2; O2SAT 97
[2023-11-16] MEDS: SENOKOT S TAB PO SCH (20:35)
[2023-11-17] VITALS (8 sets, daily range): BP systolic 90–165; BP diastolic 56–84; TEMP 96.8–97.5; O2SAT 93–98
[2023-11-17 00:17] LABS: HEMATOCRIT 30.1 % (36.0-47.0)
[2023-11-17 07:06] LABS: BASO # 0.1 10^3/uL (0.0-0.2); BASO % 0.7 % (0.0-1.0); EOS # 0.3 10^3/uL (0.0-0.5); EOS % 3.9 % (0.0-3.0); HEMATOCRIT 30.8 % (36.0-47.0); HEMOGLOBIN 10.3 g/dl (12.0-15.5); LYMPH # 1.8 10^3/uL (1.5-5.0); LYMPH % 26.6 % (24.0-44.0); MEAN CORPUSCULAR HEMOGLOBIN 30.9 pg (27.0-33.0); MEAN CORPUSCULAR HGB CONC 33.4 g/dl (32.0-36.5); MEAN CORPUSCULAR VOLUME 92.5 fl (80.0-96.0); MONO # 0.4 10^3/uL (0.0-0.8); MONO % 6.3 % (2.0-8.0); NEUTROPHILS # 4.2 10^3/uL (1.5-8.5); NEUTROPHILS % 62.2 % (36.0-66.0); PLATELET COUNT, AUTOMATED 212 10^3/uL (150-450); RED BLOOD COUNT 3.33 10^6/uL (4.00-5.40); WHITE BLOOD COUNT 6.7 10^3/uL (4.0-10.0)
[2023-11-17 07:35] LABS: BLOOD UREA NITROGEN 23 MG/DL (9-23); CALCIUM LEVEL 8.4 MG/DL (8.3-10.6); CARBON DIOXIDE LEVEL 27 MMOL/L (20-31); CHLORIDE LEVEL 109 MMOL/L (98-107); CREATININE FOR GFR 0.91 MG/DL (0.55-1.30); GLOMERULAR FILTRATION RATE > 60.0 (>39); GLUCOSE, FASTING 112 MG/DL (74-106); MAGNESIUM LEVEL 2.2 MG/DL (1.8-2.4); POTASSIUM SERUM 4.4 MMOL/L (3.5-5.1); SODIUM LEVEL 140 MMOL/L (136-145)
[2023-11-17] MEDS ORDERED: LIDOCAINE 2% 100MG/5ML SDV (FOR ANES.) As Ordered ONE (14:40)
[2023-11-17] MEDS ORDERED: propofoL 200 MG/20 ML VIAL As Ordered ONE (14:40)
[2023-11-17] MEDS ORDERED: GLYCOPYRROLATE INJ 0.2 MG/ML 2 ML VIAL As Ordered ONE (16:00)
[2023-11-17] MEDS: ONDANSETRON 4MG 2ML VIAL IV ONE (16:35)
[2023-11-17] MEDS: METOPROLOL SUCC *XL* 25MG TAB (TopROL *XL*) PO SCH (17:11)
[2023-11-18] VITALS (8 sets, daily range): BP systolic 102–120; BP diastolic 50–72; TEMP 96.5–98; O2SAT 90–97
[2023-11-18 05:42] LABS: BASO % 0.5 % (0.0-1.0); EOS # 0.2 10^3/uL (0.0-0.5); EOS % 3.5 % (0.0-3.0); HEMATOCRIT 28.7 % (36.0-47.0); HEMOGLOBIN 9.5 g/dl (12.0-15.5); LYMPH # 1.5 10^3/uL (1.5-5.0); LYMPH % 21.9 % (24.0-44.0); MEAN CORPUSCULAR HEMOGLOBIN 30.9 pg (27.0-33.0); MEAN CORPUSCULAR HGB CONC 33.1 g/dl (32.0-36.5); MEAN CORPUSCULAR VOLUME 93.5 fl (80.0-96.0); MONO # 0.5 10^3/uL (0.0-0.8); MONO % 7.1 % (2.0-8.0); NEUTROPHILS # 4.4 10^3/uL (1.5-8.5); NEUTROPHILS % 66.8 % (36.0-66.0); PLATELET COUNT, AUTOMATED 205 10^3/uL (150-450); RED BLOOD COUNT 3.07 10^6/uL (4.00-5.40); WHITE BLOOD COUNT 6.6 10^3/uL (4.0-10.0)
[2023-11-18 06:01] LABS: CALCIUM LEVEL 7.8 MG/DL (8.3-10.6); CREATININE FOR GFR 1.01 MG/DL (0.55-1.30); GLOMERULAR FILTRATION RATE 56.4 (>39); MAGNESIUM LEVEL 2.1 MG/DL (1.8-2.4); POTASSIUM SERUM 4.1 MMOL/L (3.5-5.1)
[2023-11-19 04:10] VITALS: BP 112/56; TEMP 96.6; O2SAT 95
[2023-11-19] MEDS: ACETAMINOPHEN TAB 650MG DOSE (2X325MG) PO PRN (04:30)
[2023-11-19 07:19] LABS: BASO % 0.3 % (0.0-1.0); EOS # 0.2 10^3/uL (0.0-0.5); EOS % 3.3 % (0.0-3.0); HEMATOCRIT 27.8 % (36.0-47.0); HEMOGLOBIN 8.9 g/dl (12.0-15.5); LYMPH # 1.6 10^3/uL (1.5-5.0); LYMPH % 22.9 % (24.0-44.0); MEAN CORPUSCULAR HEMOGLOBIN 30.3 pg (27.0-33.0); MEAN CORPUSCULAR VOLUME 94.6 fl (80.0-96.0); MONO # 0.4 10^3/uL (0.0-0.8); MONO % 6.1 % (2.0-8.0); NEUTROPHILS # 4.8 10^3/uL (1.5-8.5); NEUTROPHILS % 67.3 % (36.0-66.0); PLATELET COUNT, AUTOMATED 204 10^3/uL (150-450); RED BLOOD COUNT 2.94 10^6/uL (4.00-5.40); WHITE BLOOD COUNT 7.1 10^3/uL (4.0-10.0)
[2023-11-19 07:21] VITALS: BP 109/52; TEMP 96.9; O2SAT 98
[2023-11-19 07:36] LABS: BLOOD UREA NITROGEN 26 MG/DL (9-23); CALCIUM LEVEL 8.1 MG/DL (8.3-10.6); CARBON DIOXIDE LEVEL 27 MMOL/L (20-31); CHLORIDE LEVEL 110 MMOL/L (98-107); CREATININE FOR GFR 0.85 MG/DL (0.55-1.30); GLOMERULAR FILTRATION RATE > 60.0 (>39); GLUCOSE, FASTING 147 MG/DL (74-106); MAGNESIUM LEVEL 1.9 MG/DL (1.8-2.4); POTASSIUM SERUM 4.4 MMOL/L (3.5-5.1); SODIUM LEVEL 141 MMOL/L (136-145)
[2023-11-19] MEDS: PANTOPRAZOLE 40MG TAB (PROTONIX) PO SCH (10:09)
[2023-11-19 11:23] VITALS: BP 116/70; TEMP 97.3; O2SAT 93
[2023-11-19 12:20] LABS: HEMATOCRIT 27.9 % (36.0-47.0); HEMOGLOBIN 9.2 g/dl (12.0-15.5)
[2023-11-19 15:50] VITALS: BP 151/68; TEMP 97.3; O2SAT 97
[2023-11-19 17:26] LABS: HEMATOCRIT 29.2 % (36.0-47.0); HEMOGLOBIN 9.4 g/dl (12.0-15.5)
[2023-11-19 20:20] VITALS: BP 108/51; TEMP 98.1; O2SAT 94
[2023-11-20 03:59] VITALS: BP 118/82; TEMP 97.6; O2SAT 96
[2023-11-20 06:23] LABS: BASO % 0.5 % (0.0-1.0); EOS # 0.3 10^3/uL (0.0-0.5); EOS % 4.6 % (0.0-3.0); HEMATOCRIT 25.9 % (36.0-47.0); HEMOGLOBIN 8.3 g/dl (12.0-15.5); LYMPH # 1.6 10^3/uL (1.5-5.0); LYMPH % 23.9 % (24.0-44.0); MEAN CORPUSCULAR HEMOGLOBIN 30.5 pg (27.0-33.0); MEAN CORPUSCULAR VOLUME 95.2 fl (80.0-96.0); MONO # 0.4 10^3/uL (0.0-0.8); MONO % 5.8 % (2.0-8.0); NEUTROPHILS # 4.3 10^3/uL (1.5-8.5); PLATELET COUNT, AUTOMATED 198 10^3/uL (150-450); RED BLOOD COUNT 2.72 10^6/uL (4.00-5.40); WHITE BLOOD COUNT 6.6 10^3/uL (4.0-10.0)
[2023-11-20 06:51] LABS: CREATININE FOR GFR 0.97 MG/DL (0.55-1.30); GLOMERULAR FILTRATION RATE 59.1 (>39); MAGNESIUM LEVEL 1.9 MG/DL (1.8-2.4); POTASSIUM SERUM 4.4 MMOL/L (3.5-5.1)
[2023-11-20 07:53] VITALS: BP 126/59; TEMP 97; O2SAT 97
[2023-11-20 08:52] VITALS: BP 126/59
[2023-11-20 10:37] LABS: HEMATOCRIT 29.3 % (36.0-47.0); HEMOGLOBIN 9.3 g/dl (12.0-15.5)
[2023-11-20] MEDS ORDERED: DULO60CA35 PO (11:21)
[2023-11-20] MEDS ORDERED: PANT40TA29 PO (11:21)
== END 2023-11-20 15:11 | DRG 378 ==
LOC: M ED 12:44 → EDBD 12:44 → M ED INP 16:14 → ENRESERV 23:06 → M PCU 23:46
PROVIDERS: ADMIT Internal Medicine; ATTEND Internal Medicine
PROC: 30233N1 Transfusion of Nonautologous Red Blood Cells into Peripheral Vein, Percutaneous Approach (ICD-10-PCS; 2023-11-15)
PROC: 0W3P8ZZ Control Bleeding in Gastrointestinal Tract, Via Natural or Artificial Opening Endoscopic (ICD-10-PCS; principal; 2023-11-17 14:30)
DX: K31.811 Angiodysplasia of stomach and duodenum with bleeding (principal); D62 Acute posthemorrhagic anemia; I50.32 Chronic diastolic (congestive) heart failure; D50.9 Iron deficiency anemia, unspecified; I11.0 Hypertensive heart disease with heart failure; I25.2 Old myocardial infarction; E11.9 Type 2 diabetes mellitus without complications; E78.5 Hyperlipidemia, unspecified; G89.29 Other chronic pain; M54.9 Dorsalgia, unspecified; F17.200 Nicotine dependence, unspecified, uncomplicated; I44.1 Atrioventricular block, second degree; F39 Unspecified mood [affective] disorder; M81.0 Age-related osteoporosis without current pathological fracture; N39.3 Stress incontinence (female) (male); Z86.73 Personal history of transient ischemic attack (TIA), and cerebral infarction without residual deficits; Z95.0 Presence of cardiac pacemaker; Z95.5 Presence of coronary angioplasty implant and graft; Z96.643 Presence of artificial hip joint, bilateral; Z98.41 Cataract extraction status, right eye; Z96.1 Presence of intraocular lens; Z79.82 Long term (current) use of aspirin; Z79.899 Other long term (current) drug therapy

== ENCOUNTER → 2023-11-15 | Outpatient (REF) ==
[~2023-11-15] MED LIST changes: +ASPI-161 PO; +BISA10SU27 PR; +FLEEENE12 PR; +MILKSUS3 PO
[2023-11-15 11:14] LABS: BASO % 0.5 % (0.0-1.0); EOS # 0.2 10^3/uL (0.0-0.5); HEMATOCRIT 21.2 % (36.0-47.0); LYMPH # 1.6 10^3/uL (1.5-5.0); LYMPH % 21.5 % (24.0-44.0); MEAN CORPUSCULAR HEMOGLOBIN 30.9 pg (27.0-33.0); MEAN CORPUSCULAR HGB CONC 32.1 g/dl (32.0-36.5); MEAN CORPUSCULAR VOLUME 96.4 fl (80.0-96.0); MONO # 0.3 10^3/uL (0.0-0.8); MONO % 4.1 % (2.0-8.0); NEUTROPHILS # 5.4 10^3/uL (1.5-8.5); NEUTROPHILS % 71.6 % (36.0-66.0); PLATELET COUNT, AUTOMATED 217 10^3/uL (150-450); WHITE BLOOD COUNT 7.5 10^3/uL (4.0-10.0)
[2023-11-15 11:19] LABS: HEMOGLOBIN 6.8 g/dl (12.0-15.5)
[2023-11-15 11:38] LABS: BILIRUBIN,TOTAL 0.3 MG/DL (0.3-1.2); CREATININE FOR GFR 1.13 MG/DL (0.55-1.30); GLOMERULAR FILTRATION RATE 49.6 (>39); POTASSIUM SERUM 5.1 MMOL/L (3.5-5.1); TOTAL PROTEIN 5.8 G/DL (5.7-8.2)
== END ==
LOC: SKLAB3 10:20
PROVIDERS: ATTEND Internal Medicine
DX: R42 Dizziness and giddiness (principal); I95.9 Hypotension, unspecified

== ENCOUNTER → 2023-11-20 | Outpatient (REF) | payer MEDICAID, MEDICARE ==
[~2023-11-20] MED LIST changes: +ASPI-615 PO; +BISA10SU27 PR; +FLEEENE12 PR; +MILKSUS3 PO; +PANT40TA29 PO
== END ==
LOC: SKLAB3 07:00
PROVIDERS: ATTEND Nurse Practitioner Family
DX: Z91.81 History of falling (principal)

== ENCOUNTER 2023-11-24 13:15 | Emergency (ER) | payer MEDICARE, MEDICAID ==
[~2023-11-24] VITALS: Ht 154.9 cm; Wt 81.0 kg
[2023-11-24] VITALS (10 sets, daily range): BP systolic 104–128; BP diastolic 53–62; TEMP 96.6–98.6; O2SAT 96–99
[2023-11-24] MEDS ORDERED: PANTOPRAZOLE 40MG VIAL IV ONE (13:30)
[2023-11-24] MEDS: PANTOPRAZOLE 40MG VIAL IV ONE (15:07)
[2023-11-24 15:16] LABS: RSV AMPLIFICATION NEGATIVE (NEGATIVE)
[2023-11-24] MEDS ORDERED: NS 500 ML IV ONE (15:50)
[2023-11-24] MEDS ORDERED: HOME MED LIST COMPLETE! XX SCH (16:35)
== END 2023-11-24 21:12 | disposition short-term general hospital (02) ==
LOC: M ED 13:15
DX: K92.2 Gastrointestinal hemorrhage, unspecified (principal); D64.9 Anemia, unspecified; I11.0 Hypertensive heart disease with heart failure; I50.22 Chronic systolic (congestive) heart failure; E11.9 Type 2 diabetes mellitus without complications; E03.9 Hypothyroidism, unspecified; Z79.1 Long term (current) use of non-steroidal anti-inflammatories (NSAID); Z79.899 Other long term (current) drug therapy
CPT/HCPCS: 36430; 85610; 86920; 87631; 93005; 93041; 94760; 96374; 99285; C9113; P9016

== ENCOUNTER → 2023-11-24 | Outpatient (REF) ==
[2023-11-24 12:27] LABS: MEAN CORPUSCULAR HEMOGLOBIN 30.9 pg (27.0-33.0); MEAN CORPUSCULAR HGB CONC 31.4 g/dl (32.0-36.5); MEAN CORPUSCULAR VOLUME 98.4 fl (80.0-96.0); PLATELET COUNT, AUTOMATED 241 10^3/uL (150-450); RED BLOOD COUNT 1.91 10^6/uL (4.00-5.40)
[2023-11-24 12:34] LABS: HEMATOCRIT 18.8 % (36.0-47.0); HEMOGLOBIN 5.9 g/dl (12.0-15.5)
[2023-11-24 12:57] LABS: BILIRUBIN,TOTAL 0.3 MG/DL (0.3-1.2); CALCIUM LEVEL 8.1 MG/DL (8.3-10.6); CREATININE FOR GFR 1.05 MG/DL (0.55-1.30); POTASSIUM SERUM 4.4 MMOL/L (3.5-5.1); TOTAL PROTEIN 5.5 G/DL (5.7-8.2)
== END ==
LOC: SKLAB3 11:29
PROVIDERS: ATTEND Internal Medicine
DX: D64.9 Anemia, unspecified (principal)

== ENCOUNTER → 2023-12-01 | Outpatient (REF) ==
[2023-12-01 12:49] LABS: HEMATOCRIT 28.3 % (36.0-47.0); HEMOGLOBIN 8.8 g/dl (12.0-15.5); MEAN CORPUSCULAR HEMOGLOBIN 30.2 pg (27.0-33.0); MEAN CORPUSCULAR HGB CONC 31.1 g/dl (32.0-36.5); MEAN CORPUSCULAR VOLUME 97.3 fl (80.0-96.0); PLATELET COUNT, AUTOMATED 280 10^3/uL (150-450); RED BLOOD COUNT 2.91 10^6/uL (4.00-5.40); WHITE BLOOD COUNT 8.3 10^3/uL (4.0-10.0)
[2023-12-01 12:56] LABS: CALCIUM LEVEL 8.5 MG/DL (8.3-10.6); CREATININE FOR GFR 1.09 MG/DL (0.55-1.30); GLOMERULAR FILTRATION RATE 51.7 (>39); POTASSIUM SERUM 4.8 MMOL/L (3.5-5.1)
== END ==
LOC: SKLAB3 06:55
PROVIDERS: ATTEND Internal Medicine
DX: I50.9 Heart failure, unspecified (principal); D64.9 Anemia, unspecified

== ENCOUNTER → 2023-12-04 | Outpatient (REF) | payer MEDICARE, MEDICAID | LOC: SKLAB3 11:42 | PROVIDERS: ATTEND Nurse Practitioner Family | DX: D64.9 Anemia, unspecified (principal) ==

== ENCOUNTER 2023-12-05 08:36 | Outpatient (CLI) | payer MEDICARE, MEDICAID ==
[2023-12-05] VITALS (7 sets, daily range): BP systolic 110–147; BP diastolic 53–70; TEMP 97–97.6; O2SAT 95–99
[~2023-12-05] VITALS: Ht 154.9 cm; Wt 82.8 kg
== END 2023-12-05 13:45 ==
LOC: M INFU 08:36
PROVIDERS: ATTEND Nurse Practitioner Family
DX: D64.9 Anemia, unspecified (principal)
CPT/HCPCS: 36430; P9016

== ENCOUNTER → 2023-12-11 | Outpatient (REF) | payer MEDICARE, MEDICAID ==
[2023-12-11 11:15] LABS: HEMATOCRIT 33.8 % (36.0-47.0); HEMOGLOBIN 10.8 g/dl (12.0-15.5); MEAN CORPUSCULAR HEMOGLOBIN 29.4 pg (27.0-33.0); MEAN CORPUSCULAR VOLUME 92.1 fl (80.0-96.0); PLATELET COUNT, AUTOMATED 247 10^3/uL (150-450); RED BLOOD COUNT 3.67 10^6/uL (4.00-5.40); WHITE BLOOD COUNT 6.4 10^3/uL (4.0-10.0)
[2023-12-11 11:49] LABS: CALCIUM LEVEL 7.9 MG/DL (8.3-10.6); CREATININE FOR GFR 1.13 MG/DL (0.55-1.30); GLOMERULAR FILTRATION RATE 49.6 (>39); POTASSIUM SERUM 4.9 MMOL/L (3.5-5.1)
== END ==
LOC: SKLAB3 09:53
PROVIDERS: ATTEND Internal Medicine
DX: D64.9 Anemia, unspecified (principal)

== ENCOUNTER → 2023-12-13 | Outpatient (REF) | payer MEDICARE, MEDICAID ==
[2023-12-08 09:07] LABS: HEMATOCRIT 36.7 % (36.0-47.0); HEMOGLOBIN 11.7 g/dl (12.0-15.5); MEAN CORPUSCULAR HEMOGLOBIN 29.3 pg (27.0-33.0); MEAN CORPUSCULAR HGB CONC 31.9 g/dl (32.0-36.5); MEAN CORPUSCULAR VOLUME 91.8 fl (80.0-96.0); PLATELET COUNT, AUTOMATED 241 10^3/uL (150-450); WHITE BLOOD COUNT 6.7 10^3/uL (4.0-10.0)
[2023-12-08 09:18] LABS: CALCIUM LEVEL 8.7 MG/DL (8.3-10.6); CREATININE FOR GFR 0.97 MG/DL (0.55-1.30); GLOMERULAR FILTRATION RATE 59.1 (>39); POTASSIUM SERUM 4.5 MMOL/L (3.5-5.1)
== END ==
LOC: SKLAB3 08:26
PROVIDERS: ATTEND Internal Medicine
DX: D64.9 Anemia, unspecified (principal); I50.9 Heart failure, unspecified

== ENCOUNTER → 2023-12-14 | Outpatient (REF) | payer MEDICARE, MEDICAID ==
[2023-12-14 07:57] LABS: HEMATOCRIT 33.6 % (36.0-47.0); HEMOGLOBIN 10.7 g/dl (12.0-15.5); MEAN CORPUSCULAR HEMOGLOBIN 29.2 pg (27.0-33.0); MEAN CORPUSCULAR HGB CONC 31.8 g/dl (32.0-36.5); MEAN CORPUSCULAR VOLUME 91.6 fl (80.0-96.0); PLATELET COUNT, AUTOMATED 243 10^3/uL (150-450); RED BLOOD COUNT 3.67 10^6/uL (4.00-5.40); WHITE BLOOD COUNT 7.1 10^3/uL (4.0-10.0)
== END ==
LOC: SKLAB3 10:32
PROVIDERS: ATTEND Internal Medicine
DX: D64.9 Anemia, unspecified (principal)

== ENCOUNTER → 2023-12-18 | Outpatient (REF) | payer MEDICARE, MEDICAID ==
[2023-12-18 10:10] LABS: HEMATOCRIT 35.6 % (36.0-47.0); HEMOGLOBIN 11.1 g/dl (12.0-15.5); MEAN CORPUSCULAR HEMOGLOBIN 28.9 pg (27.0-33.0); MEAN CORPUSCULAR HGB CONC 31.2 g/dl (32.0-36.5); MEAN CORPUSCULAR VOLUME 92.7 fl (80.0-96.0); PLATELET COUNT, AUTOMATED 267 10^3/uL (150-450); RED BLOOD COUNT 3.84 10^6/uL (4.00-5.40); WHITE BLOOD COUNT 7.2 10^3/uL (4.0-10.0)
[2023-12-18 10:37] LABS: CALCIUM LEVEL 8.5 MG/DL (8.3-10.6); CREATININE FOR GFR 1.08 MG/DL (0.55-1.30); GLOMERULAR FILTRATION RATE 52.2 (>39); POTASSIUM SERUM 4.8 MMOL/L (3.5-5.1)
== END ==
LOC: SKLAB3 11:01
PROVIDERS: ATTEND Nurse Practitioner Family
DX: D64.9 Anemia, unspecified (principal)

== ENCOUNTER → 2023-12-19 | Outpatient (REF) | payer MEDICARE, MEDICAID ==
[2023-12-19 08:49] LABS: HEMATOCRIT 35.5 % (36.0-47.0); HEMOGLOBIN 10.6 g/dl (12.0-15.5); MEAN CORPUSCULAR HEMOGLOBIN 29.8 pg (27.0-33.0); MEAN CORPUSCULAR HGB CONC 29.9 g/dl (32.0-36.5); MEAN CORPUSCULAR VOLUME 99.7 fl (80.0-96.0); PLATELET COUNT, AUTOMATED 255 10^3/uL (150-450); RED BLOOD COUNT 3.56 10^6/uL (4.00-5.40); WHITE BLOOD COUNT 10.8 10^3/uL (4.0-10.0)
== END ==
LOC: SKLAB3 07:00
PROVIDERS: ATTEND Nurse Practitioner Family
DX: D64.9 Anemia, unspecified (principal)

== ENCOUNTER 2023-12-22 13:20 | Outpatient (CLI) | payer MEDICARE, MEDICAID ==
[~2023-12-22] VITALS: Ht 154.9 cm; Wt 82.8 kg
[2023-12-22 13:20] VITALS: BP 132/64; O2SAT 96
[~2023-12-22 13:20] MED LIST changes: +ALBUTEROL SULFATE 2.5MG/0.5ML INH NEB SOLN INH PRN; +EPINEPHrine INJ 1 MG/ML 1ML AMP IM PRN; +NS 1,000 ML IV SCH; +diphenhydrAMINE 50MG/ML VIAL IV PRN; +methylPREDNISolone 125MG 2ML VIAL IV PRN
[2023-12-22] MEDS: IRON SUCROSE 200 MG in NS 100 ML IV ONE (13:51)
[2023-12-22 14:55] VITALS: BP 123/61; O2SAT 97
== END 2023-12-22 15:05 ==
LOC: M INFU 13:20
PROVIDERS: ATTEND Nurse Practitioner Family
DX: D50.9 Iron deficiency anemia, unspecified (principal)
CPT/HCPCS: 96365; J1756

== ENCOUNTER → 2023-12-25 | Outpatient (REF) | payer MEDICARE, MEDICAID ==
[~2023-12-25] MED LIST changes: -ALBUTEROL SULFATE 2.5MG/0.5ML INH NEB SOLN INH PRN; -EPINEPHrine INJ 1 MG/ML 1ML AMP IM PRN; -NS 1,000 ML IV SCH; -diphenhydrAMINE 50MG/ML VIAL IV PRN; -methylPREDNISolone 125MG 2ML VIAL IV PRN
[2023-12-25 07:41] LABS: HEMATOCRIT 36.5 % (36.0-47.0); HEMOGLOBIN 11.7 g/dl (12.0-15.5); MEAN CORPUSCULAR HGB CONC 32.1 g/dl (32.0-36.5); MEAN CORPUSCULAR VOLUME 90.3 fl (80.0-96.0); PLATELET COUNT, AUTOMATED 246 10^3/uL (150-450); RED BLOOD COUNT 4.04 10^6/uL (4.00-5.40); WHITE BLOOD COUNT 7.7 10^3/uL (4.0-10.0)
== END ==
LOC: SKLAB3 07:00
PROVIDERS: ATTEND Nurse Practitioner Family
DX: D64.9 Anemia, unspecified (principal)

== ENCOUNTER → 2023-12-28 | Outpatient (REF) | payer MEDICARE, MEDICAID ==
[2023-12-28 09:49] LABS: HEMATOCRIT 39.1 % (36.0-47.0); MEAN CORPUSCULAR HEMOGLOBIN 28.8 pg (27.0-33.0); MEAN CORPUSCULAR HGB CONC 30.7 g/dl (32.0-36.5); MEAN CORPUSCULAR VOLUME 93.8 fl (80.0-96.0); PLATELET COUNT, AUTOMATED 219 10^3/uL (150-450); RED BLOOD COUNT 4.17 10^6/uL (4.00-5.40); WHITE BLOOD COUNT 9.5 10^3/uL (4.0-10.0)
== END ==
LOC: SKLAB3 07:00
PROVIDERS: ATTEND Nurse Practitioner Family
DX: D64.9 Anemia, unspecified (principal)

== ENCOUNTER 2023-12-29 07:05 | Outpatient (CLI) | payer MEDICARE, MEDICAID ==
[~2023-12-29] VITALS: Ht 157.5 cm; Wt 80.0 kg
[2023-12-29 07:05] VITALS: BP 121/61; O2SAT 100
[~2023-12-29 07:05] MED LIST changes: +ALBUTEROL SULFATE 2.5MG/0.5ML INH NEB SOLN INH PRN; +EPINEPHrine INJ 1 MG/ML 1ML AMP IM PRN; +NS 1,000 ML IV SCH; +diphenhydrAMINE 50MG/ML VIAL IV PRN; +methylPREDNISolone 125MG 2ML VIAL IV PRN
[2023-12-29] MEDS: IRON SUCROSE 200 MG in NS 190 ML IV ONE (07:28)
[2023-12-29 09:09] VITALS: BP 167/79; O2SAT 96
== END 2023-12-29 09:30 ==
LOC: M INFU 07:05
PROVIDERS: ATTEND Nurse Practitioner Family
DX: D50.9 Iron deficiency anemia, unspecified (principal)
CPT/HCPCS: 96365; 96366; J1756

== ENCOUNTER → 2023-12-31 | Outpatient (REF) | payer MEDICARE, MEDICAID ==
[~2023-12-31] MED LIST changes: -ALBUTEROL SULFATE 2.5MG/0.5ML INH NEB SOLN INH PRN; -EPINEPHrine INJ 1 MG/ML 1ML AMP IM PRN; -NS 1,000 ML IV SCH; -diphenhydrAMINE 50MG/ML VIAL IV PRN; -methylPREDNISolone 125MG 2ML VIAL IV PRN
[2023-12-31 06:45] LABS: HEMATOCRIT 36.6 % (36.0-47.0); HEMOGLOBIN 11.6 g/dl (12.0-15.5); MEAN CORPUSCULAR HEMOGLOBIN 28.8 pg (27.0-33.0); MEAN CORPUSCULAR HGB CONC 31.7 g/dl (32.0-36.5); MEAN CORPUSCULAR VOLUME 90.8 fl (80.0-96.0); PLATELET COUNT, AUTOMATED 211 10^3/uL (150-450); RED BLOOD COUNT 4.03 10^6/uL (4.00-5.40); WHITE BLOOD COUNT 6.6 10^3/uL (4.0-10.0)
== END ==
LOC: SKLAB3 07:00
PROVIDERS: ATTEND Nurse Practitioner Family
DX: D64.9 Anemia, unspecified (principal)

== ENCOUNTER → 2024-01-04 | Outpatient (REF) | payer MEDICARE, MEDICAID ==
[2024-01-04 08:19] LABS: HEMATOCRIT 36.5 % (36.0-47.0); HEMOGLOBIN 11.4 g/dl (12.0-15.5); MEAN CORPUSCULAR HEMOGLOBIN 28.8 pg (27.0-33.0); MEAN CORPUSCULAR HGB CONC 31.2 g/dl (32.0-36.5); MEAN CORPUSCULAR VOLUME 92.2 fl (80.0-96.0); PLATELET COUNT, AUTOMATED 189 10^3/uL (150-450); RED BLOOD COUNT 3.96 10^6/uL (4.00-5.40); WHITE BLOOD COUNT 7.1 10^3/uL (4.0-10.0)
== END ==
LOC: SKLAB3 08:11
PROVIDERS: ATTEND Nurse Practitioner Family
DX: D64.9 Anemia, unspecified (principal)

== ENCOUNTER 2024-01-05 06:52 | Outpatient (CLI) | payer MEDICARE, MEDICAID ==
[~2024-01-05] VITALS: Ht 167.6 cm; Wt 80.0 kg
[~2024-01-05 06:52] MED LIST changes: +NS 1,000 ML IV SCH
[2024-01-05 07:00] VITALS: BP 134/59; O2SAT 95
[2024-01-05] MEDS ORDERED: EPINEPHrine INJ 1 MG/ML 1ML AMP IM PRN (07:01)
[2024-01-05] MEDS ORDERED: ALBUTEROL SULFATE 2.5MG/0.5ML INH NEB SOLN INH PRN (07:01)
[2024-01-05] MEDS ORDERED: diphenhydrAMINE 50MG/ML VIAL IV PRN (07:01)
[2024-01-05] MEDS ORDERED: methylPREDNISolone 125MG 2ML VIAL IV PRN (07:01)
[2024-01-05] MEDS: IRON SUCROSE 200 MG in NS 100 ML OVER 1 HR IV ONE (07:24)
[2024-01-05 08:20] VITALS: BP 109/59; O2SAT 96
== END 2024-01-05 08:30 ==
LOC: M INFU 06:52
PROVIDERS: ATTEND Nurse Practitioner Family
DX: D50.9 Iron deficiency anemia, unspecified (principal)
CPT/HCPCS: 96365; J1756

== ENCOUNTER → 2024-01-08 | Outpatient (REF) | payer MEDICARE, MEDICAID ==
[~2024-01-08] MED LIST changes: -NS 1,000 ML IV SCH
[2024-01-08 09:18] LABS: HEMATOCRIT 36.3 % (36.0-47.0); HEMOGLOBIN 11.3 g/dl (12.0-15.5); MEAN CORPUSCULAR HEMOGLOBIN 28.5 pg (27.0-33.0); MEAN CORPUSCULAR HGB CONC 31.1 g/dl (32.0-36.5); MEAN CORPUSCULAR VOLUME 91.7 fl (80.0-96.0); PLATELET COUNT, AUTOMATED 214 10^3/uL (150-450); RED BLOOD COUNT 3.96 10^6/uL (4.00-5.40); WHITE BLOOD COUNT 7.9 10^3/uL (4.0-10.0)
== END ==
LOC: SKLAB3 07:00
PROVIDERS: ATTEND Nurse Practitioner Family
DX: D64.9 Anemia, unspecified (principal)

== ENCOUNTER → 2024-01-11 | Outpatient (REF) | payer MEDICARE, MEDICAID ==
[2024-01-11 09:14] LABS: HEMOGLOBIN 11.7 g/dl (12.0-15.5); MEAN CORPUSCULAR HEMOGLOBIN 29.3 pg (27.0-33.0); MEAN CORPUSCULAR HGB CONC 31.6 g/dl (32.0-36.5); MEAN CORPUSCULAR VOLUME 92.7 fl (80.0-96.0); PLATELET COUNT, AUTOMATED 222 10^3/uL (150-450); RED BLOOD COUNT 3.99 10^6/uL (4.00-5.40); WHITE BLOOD COUNT 6.6 10^3/uL (4.0-10.0)
== END ==
LOC: SKLAB3 01-10 11:01
PROVIDERS: ATTEND Nurse Practitioner Family
DX: D64.9 Anemia, unspecified (principal)

== ENCOUNTER → 2024-01-15 | Outpatient (REF) | payer MEDICARE, MEDICAID ==
[2024-01-15 06:30] LABS: HEMATOCRIT 38.5 % (36.0-47.0); HEMOGLOBIN 12.1 g/dl (12.0-15.5); MEAN CORPUSCULAR HEMOGLOBIN 28.7 pg (27.0-33.0); MEAN CORPUSCULAR HGB CONC 31.4 g/dl (32.0-36.5); MEAN CORPUSCULAR VOLUME 91.2 fl (80.0-96.0); PLATELET COUNT, AUTOMATED 239 10^3/uL (150-450); RED BLOOD COUNT 4.22 10^6/uL (4.00-5.40); WHITE BLOOD COUNT 5.8 10^3/uL (4.0-10.0)
== END ==
LOC: SKLAB3 14:50
PROVIDERS: ATTEND Nurse Practitioner Family
DX: D64.9 Anemia, unspecified (principal)

== ENCOUNTER → 2024-01-18 | Outpatient (REF) | payer MEDICARE, MEDICAID ==
[2024-01-18 07:21] LABS: HEMATOCRIT 39.3 % (36.0-47.0); HEMOGLOBIN 12.6 g/dl (12.0-15.5); MEAN CORPUSCULAR HEMOGLOBIN 29.2 pg (27.0-33.0); MEAN CORPUSCULAR HGB CONC 32.1 g/dl (32.0-36.5); PLATELET COUNT, AUTOMATED 246 10^3/uL (150-450); RED BLOOD COUNT 4.32 10^6/uL (4.00-5.40); WHITE BLOOD COUNT 6.6 10^3/uL (4.0-10.0)
== END ==
LOC: SKLAB3 09:50
PROVIDERS: ATTEND Nurse Practitioner Family
DX: D64.9 Anemia, unspecified (principal)

== ENCOUNTER → 2024-01-19 | Outpatient (CLI) | payer MEDICARE, MEDICAID ==
[~2024-01-19] MED LIST changes: +ALBUTEROL SULFATE 2.5MG/0.5ML INH NEB SOLN INH PRN; +EPINEPHrine INJ 1 MG/ML 1ML AMP IM PRN; +NS 1,000 ML IV SCH; +diphenhydrAMINE 50MG/ML VIAL IV PRN; +methylPREDNISolone 125MG 2ML VIAL IV PRN
[2024-01-19 08:35] VITALS: BP 102/56; O2SAT 98
[2024-01-19] MEDS: IRON SUCROSE 200 MG in NS 100 ML OVER 1 HR IV ONE (08:48)
[2024-01-19 09:40] VITALS: BP 100/55; O2SAT 97
== END ==
LOC: M INFU 08:30
PROVIDERS: ATTEND Nurse Practitioner Family
DX: D50.9 Iron deficiency anemia, unspecified (principal)
CPT/HCPCS: 96365; 96413; J1756

== ENCOUNTER → 2024-01-22 | Outpatient (REF) | payer MEDICARE, MEDICAID ==
[~2024-01-22] MED LIST changes: -ALBUTEROL SULFATE 2.5MG/0.5ML INH NEB SOLN INH PRN; -EPINEPHrine INJ 1 MG/ML 1ML AMP IM PRN; -NS 1,000 ML IV SCH; -diphenhydrAMINE 50MG/ML VIAL IV PRN; -methylPREDNISolone 125MG 2ML VIAL IV PRN
[2024-01-22 09:09] LABS: HEMATOCRIT 39.1 % (36.0-47.0); HEMOGLOBIN 12.2 g/dl (12.0-15.5); MEAN CORPUSCULAR HEMOGLOBIN 28.8 pg (27.0-33.0); MEAN CORPUSCULAR HGB CONC 31.2 g/dl (32.0-36.5); MEAN CORPUSCULAR VOLUME 92.4 fl (80.0-96.0); PLATELET COUNT, AUTOMATED 240 10^3/uL (150-450); RED BLOOD COUNT 4.23 10^6/uL (4.00-5.40); WHITE BLOOD COUNT 8.3 10^3/uL (4.0-10.0)
== END ==
LOC: SKLAB3 08:59
PROVIDERS: ATTEND Nurse Practitioner Family
DX: D64.9 Anemia, unspecified (principal)

== ENCOUNTER → 2024-01-25 | Outpatient (REF) | payer MEDICARE, MEDICAID ==
[2024-01-25 11:18] LABS: HEMATOCRIT 37.6 % (36.0-47.0); HEMOGLOBIN 11.8 g/dl (12.0-15.5); MEAN CORPUSCULAR HEMOGLOBIN 28.6 pg (27.0-33.0); MEAN CORPUSCULAR HGB CONC 31.4 g/dl (32.0-36.5); PLATELET COUNT, AUTOMATED 228 10^3/uL (150-450); RED BLOOD COUNT 4.13 10^6/uL (4.00-5.40); WHITE BLOOD COUNT 7.5 10^3/uL (4.0-10.0)
== END ==
LOC: SKLAB3 07:00
PROVIDERS: ATTEND Nurse Practitioner Family
DX: D64.9 Anemia, unspecified (principal)

== ENCOUNTER 2024-01-26 10:00 | Outpatient (CLI) | payer MEDICARE, MEDICAID ==
[2024-01-26 10:00] VITALS: BP 110/60; O2SAT 95
[~2024-01-26 10:00] MED LIST changes: +ALBUTEROL SULFATE 2.5MG/0.5ML INH NEB SOLN INH PRN; +EPINEPHrine INJ 1 MG/ML 1ML AMP IM PRN; +IRON SUCROSE 200 MG in NS 190 ML IV ONE; +NS 1,000 ML IV SCH; +diphenhydrAMINE 50MG/ML VIAL IV PRN; +methylPREDNISolone 125MG 2ML VIAL IV PRN
[2024-01-26] MEDS: IRON SUCROSE 200 MG in NS 100 ML IV ONE (10:09)
[2024-01-26 11:15] VITALS: BP 122/73; O2SAT 96
== END 2024-01-26 11:45 | disposition home or self-care (01) ==
LOC: M INFU 10:00
PROVIDERS: ATTEND Nurse Practitioner Family
DX: D50.9 Iron deficiency anemia, unspecified (principal)
CPT/HCPCS: 96365; J1756

== ENCOUNTER → 2024-01-29 | Outpatient (REF) | payer MEDICARE, MEDICAID ==
[~2024-01-29] MED LIST changes: -ALBUTEROL SULFATE 2.5MG/0.5ML INH NEB SOLN INH PRN; -EPINEPHrine INJ 1 MG/ML 1ML AMP IM PRN; -IRON SUCROSE 200 MG in NS 190 ML IV ONE; -NS 1,000 ML IV SCH; -diphenhydrAMINE 50MG/ML VIAL IV PRN; -methylPREDNISolone 125MG 2ML VIAL IV PRN
[2024-01-29 07:49] LABS: HEMATOCRIT 39.2 % (36.0-47.0); HEMOGLOBIN 12.2 g/dl (12.0-15.5); MEAN CORPUSCULAR HEMOGLOBIN 28.6 pg (27.0-33.0); MEAN CORPUSCULAR HGB CONC 31.1 g/dl (32.0-36.5); MEAN CORPUSCULAR VOLUME 91.8 fl (80.0-96.0); PLATELET COUNT, AUTOMATED 224 10^3/uL (150-450); RED BLOOD COUNT 4.27 10^6/uL (4.00-5.40); WHITE BLOOD COUNT 5.9 10^3/uL (4.0-10.0)
== END ==
LOC: SKLAB3 08:30
PROVIDERS: ATTEND Nurse Practitioner Family
DX: D64.9 Anemia, unspecified (principal)

== ENCOUNTER → 2024-02-01 | Outpatient (REF) | payer MEDICARE, MEDICAID ==
[2024-02-01 06:51] LABS: HEMATOCRIT 39.9 % (36.0-47.0); HEMOGLOBIN 12.7 g/dl (12.0-15.5); MEAN CORPUSCULAR HEMOGLOBIN 29.3 pg (27.0-33.0); MEAN CORPUSCULAR HGB CONC 31.8 g/dl (32.0-36.5); MEAN CORPUSCULAR VOLUME 92.1 fl (80.0-96.0); PLATELET COUNT, AUTOMATED 197 10^3/uL (150-450); RED BLOOD COUNT 4.33 10^6/uL (4.00-5.40); WHITE BLOOD COUNT 5.9 10^3/uL (4.0-10.0)
[2024-02-01 07:21] LABS: CALCIUM LEVEL 9.6 MG/DL (8.3-10.6); CREATININE FOR GFR 1.03 MG/DL (0.55-1.30); GLOMERULAR FILTRATION RATE 55.2 (>39); POTASSIUM SERUM 4.3 MMOL/L (3.5-5.1)
== END ==
LOC: SKLAB3 07:00
PROVIDERS: ATTEND Nurse Practitioner Family
DX: D64.9 Anemia, unspecified (principal)

== ENCOUNTER → 2024-02-05 | Outpatient (REF) | payer MEDICARE, MEDICAID ==
[2024-02-05 11:12] LABS: HEMATOCRIT 36.2 % (36.0-47.0); HEMOGLOBIN 11.7 g/dl (12.0-15.5); MEAN CORPUSCULAR HEMOGLOBIN 29.3 pg (27.0-33.0); MEAN CORPUSCULAR HGB CONC 32.3 g/dl (32.0-36.5); MEAN CORPUSCULAR VOLUME 90.5 fl (80.0-96.0); PLATELET COUNT, AUTOMATED 195 10^3/uL (150-450); WHITE BLOOD COUNT 6.2 10^3/uL (4.0-10.0)
== END ==
LOC: SKLAB3 07:00
PROVIDERS: ATTEND Nurse Practitioner Family
DX: D64.9 Anemia, unspecified (principal)

== ENCOUNTER → 2024-02-08 | Outpatient (REF) | payer MEDICARE, MEDICAID ==
[2024-02-08 06:52] LABS: HEMATOCRIT 37.6 % (36.0-47.0); HEMOGLOBIN 12.3 g/dl (12.0-15.5); MEAN CORPUSCULAR HEMOGLOBIN 29.5 pg (27.0-33.0); MEAN CORPUSCULAR HGB CONC 32.7 g/dl (32.0-36.5); MEAN CORPUSCULAR VOLUME 90.2 fl (80.0-96.0); RED BLOOD COUNT 4.17 10^6/uL (4.00-5.40); WHITE BLOOD COUNT 7.6 10^3/uL (4.0-10.0)
[2024-02-08 06:53] LABS: PLATELET COUNT, AUTOMATED 171 10^3/uL (150-450)
== END ==
LOC: SKLAB3 07:00
PROVIDERS: ATTEND Nurse Practitioner Family
DX: D64.9 Anemia, unspecified (principal)

== ENCOUNTER → 2024-02-12 | Outpatient (REF) | payer MEDICARE, MEDICAID ==
[2024-02-12 14:33] LABS: HEMATOCRIT 36.6 % (36.0-47.0); MEAN CORPUSCULAR HEMOGLOBIN 29.3 pg (27.0-33.0); MEAN CORPUSCULAR HGB CONC 32.8 g/dl (32.0-36.5); MEAN CORPUSCULAR VOLUME 89.3 fl (80.0-96.0); PLATELET COUNT, AUTOMATED 202 10^3/uL (150-450); WHITE BLOOD COUNT 5.5 10^3/uL (4.0-10.0)
== END ==
LOC: SKLAB3 07:00
PROVIDERS: ATTEND Nurse Practitioner Family
DX: D64.9 Anemia, unspecified (principal)

== ENCOUNTER → 2024-02-12 | Outpatient (REF) | payer MEDICARE, MEDICAID ==
[2024-02-12 09:14] LABS: HEMOGLOBIN 12.8 g/dl (12.0-15.5); MEAN CORPUSCULAR HEMOGLOBIN 28.8 pg (27.0-33.0); MEAN CORPUSCULAR VOLUME 90.1 fl (80.0-96.0); PLATELET COUNT, AUTOMATED 220 10^3/uL (150-450); RED BLOOD COUNT 4.44 10^6/uL (4.00-5.40)
== END ==
LOC: SKLAB3 06:55
PROVIDERS: ATTEND Internal Medicine
DX: E61.1 Iron deficiency (principal)

== ENCOUNTER → 2024-02-15 | Outpatient (REF) | payer MEDICARE, MEDICAID ==
[2024-02-15 12:57] LABS: HEMATOCRIT 38.2 % (36.0-47.0); HEMOGLOBIN 12.2 g/dl (12.0-15.5); MEAN CORPUSCULAR HGB CONC 31.9 g/dl (32.0-36.5); MEAN CORPUSCULAR VOLUME 90.7 fl (80.0-96.0); PLATELET COUNT, AUTOMATED 214 10^3/uL (150-450); RED BLOOD COUNT 4.21 10^6/uL (4.00-5.40); WHITE BLOOD COUNT 7.2 10^3/uL (4.0-10.0)
== END ==
LOC: SKLAB3 07:00
PROVIDERS: ATTEND Nurse Practitioner Family
DX: D64.9 Anemia, unspecified (principal)

== ENCOUNTER → 2024-02-19 | Outpatient (REF) | payer MEDICARE, MEDICAID ==
[2024-02-19 09:20] LABS: HEMATOCRIT 39.9 % (36.0-47.0); HEMOGLOBIN 12.9 g/dl (12.0-15.5); MEAN CORPUSCULAR HEMOGLOBIN 29.7 pg (27.0-33.0); MEAN CORPUSCULAR HGB CONC 32.3 g/dl (32.0-36.5); MEAN CORPUSCULAR VOLUME 91.9 fl (80.0-96.0); PLATELET COUNT, AUTOMATED 222 10^3/uL (150-450); RED BLOOD COUNT 4.34 10^6/uL (4.00-5.40); WHITE BLOOD COUNT 6.3 10^3/uL (4.0-10.0)
== END ==
LOC: SKLAB3 07:00
PROVIDERS: ATTEND Nurse Practitioner Family
DX: D64.9 Anemia, unspecified (principal)

== ENCOUNTER → 2024-02-21 | Outpatient (REF) | payer MEDICARE, MEDICAID | LOC: SKLAB3 08:20 | PROVIDERS: ATTEND Internal Medicine | DX: Z53.8 Procedure and treatment not carried out for other reasons (principal) ==

== ENCOUNTER → 2024-02-22 | Outpatient (CLI) | payer MEDICARE, MEDICAID | LOC: M RAD 10:37 | PROVIDERS: ATTEND Internal Medicine | DX: M79.671 Pain in right foot (principal) ==

== ENCOUNTER → 2024-02-22 | Outpatient (REF) | payer MEDICARE, MEDICAID | LOC: SKLAB3 09:34 | PROVIDERS: ATTEND Internal Medicine | DX: Z53.8 Procedure and treatment not carried out for other reasons (principal) ==

== ENCOUNTER → 2024-02-22 | Outpatient (REF) | payer MEDICARE, MEDICAID ==
[2024-02-22 11:49] LABS: HEMATOCRIT 40.3 % (36.0-47.0); HEMOGLOBIN 12.9 g/dl (12.0-15.5); MEAN CORPUSCULAR HEMOGLOBIN 28.8 pg (27.0-33.0); PLATELET COUNT, AUTOMATED 205 10^3/uL (150-450); RED BLOOD COUNT 4.48 10^6/uL (4.00-5.40); WHITE BLOOD COUNT 6.4 10^3/uL (4.0-10.0)
== END ==
LOC: SKLAB3 07:00
PROVIDERS: ATTEND Nurse Practitioner Family
DX: D64.9 Anemia, unspecified (principal)

== ENCOUNTER → 2024-02-26 | Outpatient (REF) | payer MEDICARE, MEDICAID ==
[~2024-02-26] MED LIST changes: +CYCL5TAB PO; +GLUC1KIT IM; +MENT118G7 TOP; +PREG100C2 PO; +SENN1TAB85 PO; +THERTAB52 PO
[2024-02-26 08:35] LABS: HEMATOCRIT 41.1 % (36.0-47.0); HEMOGLOBIN 12.9 g/dl (12.0-15.5); MEAN CORPUSCULAR HEMOGLOBIN 28.7 pg (27.0-33.0); MEAN CORPUSCULAR HGB CONC 31.4 g/dl (32.0-36.5); MEAN CORPUSCULAR VOLUME 91.3 fl (80.0-96.0); PLATELET COUNT, AUTOMATED 207 10^3/uL (150-450); WHITE BLOOD COUNT 6.9 10^3/uL (4.0-10.0)
== END ==
LOC: SKLAB3 07:00
PROVIDERS: ATTEND Nurse Practitioner Family
DX: D64.9 Anemia, unspecified (principal)

== ENCOUNTER → 2024-02-29 | Outpatient (REF) | payer MEDICARE, MEDICAID ==
[2024-02-29 08:02] LABS: HEMATOCRIT 39.5 % (36.0-47.0); HEMOGLOBIN 12.5 g/dl (12.0-15.5); MEAN CORPUSCULAR HEMOGLOBIN 28.5 pg (27.0-33.0); MEAN CORPUSCULAR HGB CONC 31.6 g/dl (32.0-36.5); MEAN CORPUSCULAR VOLUME 90.2 fl (80.0-96.0); PLATELET COUNT, AUTOMATED 204 10^3/uL (150-450); RED BLOOD COUNT 4.38 10^6/uL (4.00-5.40); WHITE BLOOD COUNT 5.3 10^3/uL (4.0-10.0)
== END ==
LOC: SKLAB3 07:00
PROVIDERS: ATTEND Nurse Practitioner Family
DX: D64.9 Anemia, unspecified (principal)

== ENCOUNTER → 2024-03-05 | Outpatient (CLI) | payer MEDICARE, MEDICAID | LOC: M RAD 13:50 | PROVIDERS: ATTEND Nurse Practitioner Family | DX: R41.82 Altered mental status, unspecified (principal); Z91.81 History of falling ==

== ENCOUNTER → 2024-03-05 | Outpatient (REF) | payer MEDICARE, MEDICAID ==
[2024-03-05 12:22] LABS: HEMATOCRIT 39.1 % (36.0-47.0); HEMOGLOBIN 12.3 g/dl (12.0-15.5); MEAN CORPUSCULAR HEMOGLOBIN 28.9 pg (27.0-33.0); MEAN CORPUSCULAR HGB CONC 31.5 g/dl (32.0-36.5); PLATELET COUNT, AUTOMATED 197 10^3/uL (150-450); RED BLOOD COUNT 4.25 10^6/uL (4.00-5.40); WHITE BLOOD COUNT 6.9 10^3/uL (4.0-10.0)
[2024-03-05 12:54] LABS: ALBUMIN 3.2 G/DL (3.2-5.2); BILIRUBIN,TOTAL 0.5 MG/DL (0.3-1.2); CALCIUM LEVEL 9.3 MG/DL (8.3-10.6); CREATININE FOR GFR 1.1 MG/DL (0.55-1.30); POTASSIUM SERUM 4.2 MMOL/L (3.5-5.1); TOTAL PROTEIN 6.4 G/DL (5.7-8.2)
[2024-03-05 12:57] LABS: THYROID STIMULATING HORMONE 1.793 uIU/ML (0.55-4.78)
[2024-03-05 16:05] LABS: APPEARANCE, URINE CLEAR (CLEAR); BACTERIA, URINE AUTO NEGATIVE (NEGATIVE); BILIRUBIN, URINE AUTO NEGATIVE (NEGATIVE); BLOOD, URINE BLOOD NEGATIVE (NEGATIVE); COLOR, URINE YELLOW (YELLOW); GLUCOSE, URINE (UA) AUTO 3+ mg/dL (NEGATIVE); KETONE, URINE AUTO NEGATIVE (NEGATIVE); LEUKOCYTE ESTERASE, URINE AUTO NEGATIVE (NEGATIVE); MUCUS, URINE SMALL (NEGATIVE); NITRITE, URINE AUTO NEGATIVE (NEGATIVE); PROTEIN, URINE AUTO NEGATIVE (NEGATIVE); RBC, URINE AUTO 1 /HPF (0-3); SPECIFIC GRAVITY URINE AUTO 1.024 (1.002-1.035); SQUAMOUS EPITHELIAL CELL UR AU 0 /HPF (0-6); UROBILINOGEN, URINE AUTO 0.2 mg/dL (0.0-2.0); WBC, URINE AUTO 0 /HPF (0-3)
== END ==
LOC: SKLAB3 11:33
PROVIDERS: ATTEND Internal Medicine
DX: R41.82 Altered mental status, unspecified (principal)

== ENCOUNTER 2024-03-06 11:46 | Emergency (ER) | payer MEDICARE, MEDICAID ==
[~2024-03-06] VITALS: Ht 154.9 cm; Wt 79.2 kg
[~2024-03-06 11:46] MED LIST changes: -CYCL5TAB PO; -GLUC1KIT IM; -MENT118G7 TOP; -PREG100C2 PO; -SENN1TAB85 PO; -THERTAB52 PO
[2024-03-06 12:44] LABS: BASO % 0.6 % (0.0-1.0); EOS # 0.2 10^3/uL (0.0-0.5); EOS % 3.5 % (0.0-3.0); HEMATOCRIT 36.4 % (36.0-47.0); HEMOGLOBIN 11.6 g/dl (12.0-15.5); LYMPH # 1.7 10^3/uL (1.5-5.0); LYMPH % 25.1 % (24.0-44.0); MEAN CORPUSCULAR HEMOGLOBIN 29.4 pg (27.0-33.0); MEAN CORPUSCULAR HGB CONC 31.9 g/dl (32.0-36.5); MEAN CORPUSCULAR VOLUME 92.2 fl (80.0-96.0); MONO # 0.4 10^3/uL (0.0-0.8); MONO % 6.2 % (2.0-8.0); NEUTROPHILS # 4.5 10^3/uL (1.5-8.5); NEUTROPHILS % 64.5 % (36.0-66.0); PLATELET COUNT, AUTOMATED 172 10^3/uL (150-450); RED BLOOD COUNT 3.95 10^6/uL (4.00-5.40); WHITE BLOOD COUNT 6.9 10^3/uL (4.0-10.0)
[2024-03-06 13:09] LABS: BLOOD UREA NITROGEN 26 MG/DL (9-23); CALCIUM LEVEL 8.1 MG/DL (8.3-10.6); CARBON DIOXIDE LEVEL 28 MMOL/L (20-31); CHLORIDE LEVEL 110 MMOL/L (98-107); CREATININE FOR GFR 0.78 MG/DL (0.55-1.30); GLOMERULAR FILTRATION RATE > 60.0 (>39); GLUCOSE, FASTING 176 MG/DL (74-106); POTASSIUM SERUM 5.7 MMOL/L (3.5-5.1); SODIUM LEVEL 142 MMOL/L (136-145)
[2024-03-06] MEDS: CYCLOBENZAPRINE 10MG TABLET PO ONE (13:36)
[2024-03-06] MEDS: NS 1,000 ML IV SCH (13:36)
[2024-03-06] MEDS ORDERED: PANT40TA29 PO (13:51)
[2024-03-06] MEDS ORDERED: PREG100C2 PO (13:51)
[2024-03-06] MEDS ORDERED: THERTAB52 PO (13:51)
[2024-03-06] MEDS ORDERED: CYCL5TAB PO (13:51)
[2024-03-06] MEDS ORDERED: GLUC1KIT IM (13:51)
[2024-03-06] MEDS ORDERED: MENT118G7 TOP (13:51)
[2024-03-06] MEDS ORDERED: SENN1TAB85 PO (13:51)
[2024-03-06] MEDS ORDERED: DULO30CA9 PO (13:51)
[2024-03-06] MEDS ORDERED: HOME MED LIST COMPLETE! XX SCH (13:55)
[2024-03-06 19:34] VITALS: BP 152/75; TEMP 97.8; O2SAT 94
== END 2024-03-06 19:38 | disposition short-term general hospital (02) ==
LOC: M ED 11:46 → EDBD 11:46 → M ED 19:38
DX: R33.9 Retention of urine, unspecified (principal); M48.061 Spinal stenosis, lumbar region without neurogenic claudication; E11.9 Type 2 diabetes mellitus without complications; I11.0 Hypertensive heart disease with heart failure; I50.22 Chronic systolic (congestive) heart failure; I25.2 Old myocardial infarction; Z87.891 Personal history of nicotine dependence; Z79.1 Long term (current) use of non-steroidal anti-inflammatories (NSAID); Z79.810 Long term (current) use of selective estrogen receptor modulators (SERMs); Z79.899 Other long term (current) drug therapy

== ENCOUNTER → 2024-03-21 | Outpatient (REF) | payer MEDICARE, MEDICAID ==
[~2024-03-21] MED LIST changes: +CYCL5TAB PO; +GLUC1KIT IM; +MENT118G7 TOP; +ONDA-282 PO; -ONDA4TAB6 PO; +PREG100C2 PO; +SENN1TAB85 PO; +THERTAB52 PO
[2024-03-21 14:00] LABS: HEMATOCRIT 34.6 % (36.0-47.0); HEMOGLOBIN 10.8 g/dl (12.0-15.5); MEAN CORPUSCULAR HEMOGLOBIN 28.3 pg (27.0-33.0); MEAN CORPUSCULAR HGB CONC 31.2 g/dl (32.0-36.5); MEAN CORPUSCULAR VOLUME 90.6 fl (80.0-96.0); PLATELET COUNT, AUTOMATED 314 10^3/uL (150-450); RED BLOOD COUNT 3.82 10^6/uL (4.00-5.40); WHITE BLOOD COUNT 8.7 10^3/uL (4.0-10.0)
[2024-03-21 14:29] LABS: BLOOD UREA NITROGEN 19 MG/DL (9-23); CALCIUM LEVEL 8.3 MG/DL (8.3-10.6); CARBON DIOXIDE LEVEL 29 MMOL/L (20-31); CHLORIDE LEVEL 100 MMOL/L (98-107); CREATININE FOR GFR 0.78 MG/DL (0.55-1.30); GLOMERULAR FILTRATION RATE > 60.0 (>39); GLUCOSE, FASTING 142 MG/DL (74-106); POTASSIUM SERUM 4.1 MMOL/L (3.5-5.1); SODIUM LEVEL 136 MMOL/L (136-145)
== END ==
LOC: SKLAB3 07:34
PROVIDERS: ATTEND Internal Medicine
DX: I10 Essential (primary) hypertension (principal)

== ENCOUNTER → 2024-03-22 | Outpatient (REF) | payer MEDICARE, MEDICAID ==
[2024-03-22 23:04] LABS: APPEARANCE, URINE HAZY (CLEAR); BACTERIA, URINE AUTO NEGATIVE (NEGATIVE); BILIRUBIN, URINE AUTO NEGATIVE (NEGATIVE); BLOOD, URINE BLOOD NEGATIVE (NEGATIVE); COLOR, URINE AMBER (YELLOW); GLUCOSE, URINE (UA) AUTO NEGATIVE (NEGATIVE); KETONE, URINE AUTO TRACE mg/dL (NEGATIVE); LEUKOCYTE ESTERASE, URINE AUTO TRACE (NEGATIVE); MUCUS, URINE SMALL (NEGATIVE); NITRITE, URINE AUTO NEGATIVE (NEGATIVE); PROTEIN, URINE AUTO 2+ mg/dL (NEGATIVE); RBC, URINE AUTO 2 /HPF (0-3); SPECIFIC GRAVITY URINE AUTO 1.025 (1.002-1.035); SQUAMOUS EPITHELIAL CELL UR AU 0 /HPF (0-6); WBC, URINE AUTO 8 /HPF (0-3)
== END ==
LOC: SKLAB3 22:36
PROVIDERS: ATTEND Internal Medicine
DX: R41.82 Altered mental status, unspecified (principal)

== ENCOUNTER → 2024-03-23 | Outpatient (REF) | payer MEDICARE, MEDICAID ==
[2024-03-23 17:54] LABS: HEMATOCRIT 30.6 % (36.0-47.0); HEMOGLOBIN 9.6 g/dl (12.0-15.5); MEAN CORPUSCULAR HEMOGLOBIN 28.8 pg (27.0-33.0); MEAN CORPUSCULAR HGB CONC 31.4 g/dl (32.0-36.5); MEAN CORPUSCULAR VOLUME 91.9 fl (80.0-96.0); PLATELET COUNT, AUTOMATED 334 10^3/uL (150-450); RED BLOOD COUNT 3.33 10^6/uL (4.00-5.40); WHITE BLOOD COUNT 8.7 10^3/uL (4.0-10.0)
[2024-03-23 18:12] LABS: BLOOD UREA NITROGEN 20 MG/DL (9-23); CALCIUM LEVEL 8.2 MG/DL (8.3-10.6); CARBON DIOXIDE LEVEL 30 MMOL/L (20-31); CHLORIDE LEVEL 104 MMOL/L (98-107); GLOMERULAR FILTRATION RATE > 60.0 (>39); GLUCOSE, FASTING 120 MG/DL (74-106); POTASSIUM SERUM 3.9 MMOL/L (3.5-5.1); SODIUM LEVEL 138 MMOL/L (136-145)
== END ==
LOC: SKLAB3 17:17
PROVIDERS: ATTEND Internal Medicine
DX: R41.82 Altered mental status, unspecified (principal)

== ENCOUNTER → 2024-03-28 | Outpatient (REF) | payer MEDICARE, MEDICAID ==
[2024-03-28 09:16] LABS: HEMATOCRIT 30.9 % (36.0-47.0); HEMOGLOBIN 9.6 g/dl (12.0-15.5); MEAN CORPUSCULAR HEMOGLOBIN 28.8 pg (27.0-33.0); MEAN CORPUSCULAR HGB CONC 31.1 g/dl (32.0-36.5); MEAN CORPUSCULAR VOLUME 92.8 fl (80.0-96.0); PLATELET COUNT, AUTOMATED 379 10^3/uL (150-450); RED BLOOD COUNT 3.33 10^6/uL (4.00-5.40); WHITE BLOOD COUNT 8.6 10^3/uL (4.0-10.0)
[2024-03-28 09:34] LABS: BLOOD UREA NITROGEN 17 MG/DL (9-23); CALCIUM LEVEL 8.7 MG/DL (8.3-10.6); CARBON DIOXIDE LEVEL 28 MMOL/L (20-31); CHLORIDE LEVEL 102 MMOL/L (98-107); CREATININE FOR GFR 0.74 MG/DL (0.55-1.30); GLOMERULAR FILTRATION RATE > 60.0 (>39); GLUCOSE, FASTING 151 MG/DL (74-106); POTASSIUM SERUM 4.5 MMOL/L (3.5-5.1); SODIUM LEVEL 135 MMOL/L (136-145)
== END ==
LOC: SKLAB3 07:20
PROVIDERS: ATTEND Internal Medicine
DX: I10 Essential (primary) hypertension (principal)

== ENCOUNTER → 2024-04-04 | Outpatient (REF) ==
[2024-04-04 15:13] LABS: HEMATOCRIT 28.4 % (36.0-47.0); HEMOGLOBIN 8.8 g/dl (12.0-15.5); MEAN CORPUSCULAR VOLUME 93.7 fl (80.0-96.0); PLATELET COUNT, AUTOMATED 366 10^3/uL (150-450); RED BLOOD COUNT 3.03 10^6/uL (4.00-5.40); WHITE BLOOD COUNT 9.5 10^3/uL (4.0-10.0)
[2024-04-04 15:45] LABS: BLOOD UREA NITROGEN 20 MG/DL (9-23); CALCIUM LEVEL 8.4 MG/DL (8.3-10.6); CARBON DIOXIDE LEVEL 26 MMOL/L (20-31); CHLORIDE LEVEL 104 MMOL/L (98-107); CREATININE FOR GFR 0.83 MG/DL (0.55-1.30); GLOMERULAR FILTRATION RATE > 60.0 (>39); GLUCOSE, FASTING 155 MG/DL (74-106); POTASSIUM SERUM 4.4 MMOL/L (3.5-5.1); SODIUM LEVEL 136 MMOL/L (136-145)
== END ==
LOC: SKLAB3 14:00
PROVIDERS: ATTEND Internal Medicine
DX: I10 Essential (primary) hypertension (principal)

== ENCOUNTER → 2024-04-17 | Outpatient (REF) ==
[2024-04-17 11:24] LABS: BASO % 0.3 % (0.0-1.0); EOS # 0.3 10^3/uL (0.0-0.5); EOS % 2.1 % (0.0-3.0); HEMATOCRIT 29.1 % (36.0-47.0); HEMOGLOBIN 8.9 g/dl (12.0-15.5); LYMPH # 2.1 10^3/uL (1.5-5.0); LYMPH % 18.1 % (24.0-44.0); MEAN CORPUSCULAR HEMOGLOBIN 28.1 pg (27.0-33.0); MEAN CORPUSCULAR HGB CONC 30.6 g/dl (32.0-36.5); MEAN CORPUSCULAR VOLUME 91.8 fl (80.0-96.0); MONO # 0.7 10^3/uL (0.0-0.8); MONO % 5.7 % (2.0-8.0); NEUTROPHILS # 8.6 10^3/uL (1.5-8.5); NEUTROPHILS % 73.5 % (36.0-66.0); PLATELET COUNT, AUTOMATED 357 10^3/uL (150-450); RED BLOOD COUNT 3.17 10^6/uL (4.00-5.40); WHITE BLOOD COUNT 11.7 10^3/uL (4.0-10.0)
[2024-04-17 11:53] LABS: BLOOD UREA NITROGEN 29 MG/DL (9-23); CALCIUM LEVEL 8.6 MG/DL (8.3-10.6); CARBON DIOXIDE LEVEL 29 MMOL/L (20-31); CHLORIDE LEVEL 102 MMOL/L (98-107); GLOMERULAR FILTRATION RATE > 60.0 (>39); GLUCOSE, FASTING 197 MG/DL (74-106); POTASSIUM SERUM 4.4 MMOL/L (3.5-5.1); SODIUM LEVEL 134 MMOL/L (136-145)
== END ==
LOC: SKLAB3 09:40
PROVIDERS: ATTEND Internal Medicine
DX: I10 Essential (primary) hypertension (principal); D64.9 Anemia, unspecified

== ENCOUNTER → 2024-04-24 | Outpatient (REF) | payer MEDICARE, MEDICAID | LOC: SKLAB3 13:18 | PROVIDERS: ATTEND Internal Medicine | DX: Z53.8 Procedure and treatment not carried out for other reasons (principal) ==

== ENCOUNTER → 2024-04-24 | Outpatient (CLI) | payer MEDICARE, MEDICAID | LOC: M RAD 15:37 | PROVIDERS: ATTEND Internal Medicine | DX: K56.41 Fecal impaction (principal) ==

== ENCOUNTER → 2024-04-26 | Outpatient (REF) | payer MEDICARE, MEDICAID ==
[2024-04-26 13:20] LABS: BASO # 0.1 10^3/uL (0.0-0.2); BASO % 0.5 % (0.0-1.0); EOS # 0.3 10^3/uL (0.0-0.5); EOS % 2.8 % (0.0-3.0); HEMATOCRIT 27.2 % (36.0-47.0); HEMOGLOBIN 8.4 g/dl (12.0-15.5); LYMPH # 2.2 10^3/uL (1.5-5.0); LYMPH % 23.1 % (24.0-44.0); MEAN CORPUSCULAR HEMOGLOBIN 27.6 pg (27.0-33.0); MEAN CORPUSCULAR HGB CONC 30.9 g/dl (32.0-36.5); MEAN CORPUSCULAR VOLUME 89.5 fl (80.0-96.0); MONO # 0.6 10^3/uL (0.0-0.8); MONO % 5.9 % (2.0-8.0); NEUTROPHILS # 6.3 10^3/uL (1.5-8.5); NEUTROPHILS % 67.5 % (36.0-66.0); PLATELET COUNT, AUTOMATED 395 10^3/uL (150-450); RED BLOOD COUNT 3.04 10^6/uL (4.00-5.40); WHITE BLOOD COUNT 9.3 10^3/uL (4.0-10.0)
[2024-04-26 13:33] LABS: BLOOD UREA NITROGEN 30 MG/DL (9-23); CALCIUM LEVEL 8.5 MG/DL (8.3-10.6); CARBON DIOXIDE LEVEL 32 MMOL/L (20-31); CHLORIDE LEVEL 104 MMOL/L (98-107); CREATININE FOR GFR 0.84 MG/DL (0.55-1.30); GLOMERULAR FILTRATION RATE > 60.0 (>39); GLUCOSE, FASTING 132 MG/DL (74-106); POTASSIUM SERUM 4.5 MMOL/L (3.5-5.1); SODIUM LEVEL 137 MMOL/L (136-145)
== END ==
LOC: SKLAB3 11:55
PROVIDERS: ATTEND Internal Medicine
DX: I10 Essential (primary) hypertension (principal)

== ENCOUNTER → 2024-04-29 | Outpatient (REF) | payer MEDICARE, MEDICAID ==
[2024-04-29 08:35] LABS: HEMATOCRIT 28.2 % (36.0-47.0); HEMOGLOBIN 8.9 g/dl (12.0-15.5); MEAN CORPUSCULAR HEMOGLOBIN 27.9 pg (27.0-33.0); MEAN CORPUSCULAR HGB CONC 31.6 g/dl (32.0-36.5); MEAN CORPUSCULAR VOLUME 88.4 fl (80.0-96.0); PLATELET COUNT, AUTOMATED 375 10^3/uL (150-450); RED BLOOD COUNT 3.19 10^6/uL (4.00-5.40); WHITE BLOOD COUNT 7.9 10^3/uL (4.0-10.0)
[2024-04-29 09:06] LABS: PERCENT SATURATION 9.1 % (13.2-45.0)
[2024-04-29 09:07] LABS: FERRITIN 187.7 NG/ML (7.3-270.7)
== END ==
LOC: SKLAB3 07:02
PROVIDERS: ATTEND Internal Medicine
DX: D64.9 Anemia, unspecified (principal)

== ENCOUNTER → 2024-04-30 | Outpatient (REF) | payer MEDICARE, MEDICAID | LOC: SKLAB3 14:27 | PROVIDERS: ATTEND Internal Medicine | DX: R19.7 Diarrhea, unspecified (principal); Z53.8 Procedure and treatment not carried out for other reasons ==

== ENCOUNTER → 2024-05-28 | Outpatient (REF) | payer MEDICARE, MEDICAID | LOC: SKLAB3 07:22 | PROVIDERS: ATTEND Internal Medicine | DX: Z53.8 Procedure and treatment not carried out for other reasons (principal) ==

== ENCOUNTER → 2024-06-19 | Outpatient (CLI) | payer MEDICARE, MEDICAID | LOC: M RAD 14:51 | PROVIDERS: ATTEND Physician Assistant | DX: D64.9 Anemia, unspecified (principal); Z91.81 History of falling ==

== ENCOUNTER → 2024-06-19 | Outpatient (REF) | payer MEDICARE, MEDICAID ==
[2024-06-19 09:50] LABS: BASO # 0.1 10^3/uL (0.0-0.2); BASO % 0.5 % (0.0-1.0); EOS # 0.2 10^3/uL (0.0-0.5); EOS % 2.4 % (0.0-3.0); HEMATOCRIT 33.5 % (36.0-47.0); HEMOGLOBIN 10.3 g/dl (12.0-15.5); LYMPH # 2.9 10^3/uL (1.5-5.0); LYMPH % 30.8 % (24.0-44.0); MEAN CORPUSCULAR HEMOGLOBIN 27.5 pg (27.0-33.0); MEAN CORPUSCULAR HGB CONC 30.7 g/dl (32.0-36.5); MEAN CORPUSCULAR VOLUME 89.3 fl (80.0-96.0); MONO # 0.5 10^3/uL (0.0-0.8); MONO % 4.7 % (2.0-8.0); NEUTROPHILS # 5.9 10^3/uL (1.5-8.5); NEUTROPHILS % 61.4 % (36.0-66.0); PLATELET COUNT, AUTOMATED 281 10^3/uL (150-450); RED BLOOD COUNT 3.75 10^6/uL (4.00-5.40); WHITE BLOOD COUNT 9.6 10^3/uL (4.0-10.0)
[2024-06-19 10:06] LABS: HEMOGLOBIN A1c 6.2 % (4.0-6.0)
[2024-06-19 10:18] LABS: ALKALINE PHOSPHATASE 107 U/L (46-116); ALT/SGPT 29 U/L (7.0-40); AST/SGOT 27 U/L (<34); BILIRUBIN,TOTAL 0.3 MG/DL (0.3-1.2); BLOOD UREA NITROGEN 24 MG/DL (9-23); CALCIUM LEVEL 8.9 MG/DL (8.3-10.6); CARBON DIOXIDE LEVEL 30 MMOL/L (20-31); CHLORIDE LEVEL 102 MMOL/L (98-107); CREATININE FOR GFR 0.85 MG/DL (0.55-1.30); GLOMERULAR FILTRATION RATE > 60.0 (>39); GLUCOSE, FASTING 205 MG/DL (74-106); POTASSIUM SERUM 4.7 MMOL/L (3.5-5.1); SODIUM LEVEL 135 MMOL/L (136-145); TOTAL PROTEIN 7.3 G/DL (5.7-8.2)
[2024-06-19 10:25] LABS: MAGNESIUM LEVEL 1.8 MG/DL (1.8-2.4)
[2024-06-19 10:26] LABS: FERRITIN 53.9 NG/ML (7.3-270.7); PERCENT SATURATION 12.6 % (13.2-45.0); THYROID STIMULATING HORMONE 2.633 uIU/ML (0.55-4.78)
== END ==
LOC: SKLAB3 07:44
PROVIDERS: ATTEND Internal Medicine
DX: E83.42 Hypomagnesemia (principal); D64.9 Anemia, unspecified; R53.83 Other fatigue; E11.9 Type 2 diabetes mellitus without complications; R42 Dizziness and giddiness; Z91.81 History of falling

== ENCOUNTER 2024-06-28 15:49 | Inpatient (IN) | payer MEDICARE, MEDICAID ==
[~2024-06-28] VITALS: Ht 154.9 cm; Wt 78.3 kg
[~2024-06-28 15:49] MED LIST changes: -CETI-25 PO; -DOXY100T PO; -ENSU-12 PO; -FERR1TAB8 PO; -HYDR28OI7 TP; -IPRA0.00 NEB; -JUVE1POW PO; -LEVO1TAB40 PO; -MOM30SS2 PO; -NITR-67 PO; -OXYC-517 PO; -SENN-52 PO; -VITA-158 PO
[2024-06-28] MEDS: ACETAMINOPHEN 325 MG TAB PO ONE (18:06)
[2024-06-28 18:12] LABS: VENOUS BASE EXCESS -0.7 (-2.0-2.0); VENOUS O2 SATURATION 43.1 % (60.0-80.0); VENOUS PARTIAL PRESSURE CO2 45.4 mmHg (38.0-50.0); VENOUS PARTIAL PRESSURE O2 24.1 mmHg (30.0-50.0); VENOUS PH 7.358 UNITS (7.330-7.430); VENOUS STANDARD HCO3 22.9 MMOL/L; VENOUS TOTAL CO2 26.4 MMOL/L (24.0-28.0)
[2024-06-28] MEDS: NS 2,350 ML in IV 1 EA IV ONE (18:12)
[2024-06-28] MEDS: PIPERACILLIN/TAZOBACTAM SOD 4.5 GM in D5W MINI-BAG PLUS 50 ML IV ONE (18:13)
[2024-06-28] MEDS: LIDOCAINE 2% 5ML JELLY UROJET TOP ONE (18:15)
[2024-06-28 18:18] LABS: BASO % 0.2 % (0.0-1.0); EOS % 0.2 % (0.0-3.0); HEMATOCRIT 32.1 % (36.0-47.0); LYMPH # 0.6 10^3/uL (1.5-5.0); LYMPH % 4.9 % (24.0-44.0); MEAN CORPUSCULAR HEMOGLOBIN 27.5 pg (27.0-33.0); MEAN CORPUSCULAR HGB CONC 31.2 g/dl (32.0-36.5); MEAN CORPUSCULAR VOLUME 88.4 fl (80.0-96.0); MONO # 0.3 10^3/uL (0.0-0.8); MONO % 2.6 % (2.0-8.0); NEUTROPHILS # 11.5 10^3/uL (1.5-8.5); NEUTROPHILS % 91.8 % (36.0-66.0); PLATELET COUNT, AUTOMATED 234 10^3/uL (150-450); RED BLOOD COUNT 3.63 10^6/uL (4.00-5.40); WHITE BLOOD COUNT 12.5 10^3/uL (4.0-10.0)
[2024-06-28] MEDS ORDERED: ISOVUE-370 76% 100ML VIAL As Ordered ONE (18:20)
[2024-06-28] MEDS: methylPREDNISolone 125MG 2ML VIAL IV ONE (18:22)
[2024-06-28] MEDS: ALBUTEROL SULFATE 2.5MG/0.5ML INH NEB SOLN INH ONE (18:39)
[2024-06-28] MEDS: IPRATROPIUM 0.5MG/ALBUTEROL 2.5MG INH SOL UD 3ML (DUONEB) NEB ONE (18:39)
[2024-06-28 18:42] LABS: C REACTIVE PROTEIN QUANTITATIV 12.8 MG/DL (<1.0)
[2024-06-28 18:46] LABS: APPEARANCE, URINE CLOUDY (CLEAR); BACTERIA, URINE AUTO 1+ (NEGATIVE); BILIRUBIN, URINE AUTO NEGATIVE (NEGATIVE); BLOOD, URINE BLOOD NEGATIVE (NEGATIVE); COLOR, URINE YELLOW (YELLOW); GLUCOSE, URINE (UA) AUTO NEGATIVE (NEGATIVE); KETONE, URINE AUTO NEGATIVE (NEGATIVE); LEUKOCYTE ESTERASE, URINE AUTO 3+ (NEGATIVE); MUCUS, URINE SMALL (NEGATIVE); NITRITE, URINE AUTO POSITIVE (NEGATIVE); PROTEIN, URINE AUTO 1+ mg/dL (NEGATIVE); RBC, URINE AUTO 3 /HPF (0-3); SPECIFIC GRAVITY URINE AUTO 1.015 (1.002-1.035); SQUAMOUS EPITHELIAL CELL UR AU 0 /HPF (0-6); UROBILINOGEN, URINE AUTO 0.2 mg/dL (0.0-2.0); WBC, URINE AUTO 72 /HPF (0-3)
[2024-06-28 18:49] LABS: ABG BASE EXCESS -0.8 (-2.0-2.0); ABG O2 SATURATION 98.7 % (95.0-99.0); ABG PARTIAL PRESSURE CO2 34.8 mmHg (35.0-45.0); ABG PARTIAL PRESSURE O2 143.9 mmHg (75.0-100.0); ABG STANDARD HCO3 23.8 MMOL/L. (22.0-26.0); ABG TOTAL CO2 24.1 MMOL/L (23.0-31.0); ABG pH (ARTERIAL) 7.438 UNITS (7.350-7.450)
[2024-06-28 18:50] LABS: PROCALCITONIN 1.8 ng/ml
[2024-06-28 18:51] LABS: ALBUMIN 2.8 G/DL (3.2-5.2); BILIRUBIN,DIRECT 0.2 MG/DL (<0.4); BILIRUBIN,TOTAL 0.4 MG/DL (0.3-1.2); CALCIUM LEVEL 8.5 MG/DL (8.3-10.6); CREATININE FOR GFR 0.98 MG/DL (0.55-1.30); GLOMERULAR FILTRATION RATE 58.3 (>39); POTASSIUM SERUM 4.7 MMOL/L (3.5-5.1); TOTAL PROTEIN 7.3 G/DL (5.7-8.2)
[2024-06-28 19:27] LABS: CK-MB VALUE MASS 1.3 NG/ML (<3.6)
[2024-06-28 19:30] LABS: MB/CK RELATIVE INDEX 0.21 (< OR =4)
[2024-06-28] MEDS ORDERED: DEXTROSE 50% 50ML SYRINGE IV PRN (22:40)
[2024-06-28] MEDS ORDERED: GLUCOSE 4 GM CHEW PO PRN (22:40)
[2024-06-28] MEDS ORDERED: GLUCAGON INJ 1MG VIAL SC PRN (22:40)
[2024-06-28] MEDS ORDERED: DOXY100T PO (22:40)
[2024-06-28] MEDS ORDERED: FERR1TAB8 PO (22:57)
[2024-06-28] MEDS ORDERED: IPRA0.00 NEB (22:57)
[2024-06-28] MEDS ORDERED: JUVE1POW PO (22:57)
[2024-06-28] MEDS ORDERED: OXYC-517 PO ×2 (22:57)
[2024-06-28] MEDS ORDERED: ENSU-12 PO (22:57)
[2024-06-28] MEDS ORDERED: VITA-158 PO (22:57)
[2024-06-28] MEDS ORDERED: HYDR28OI7 TP (22:57)
[2024-06-28] MEDS ORDERED: CETI-25 PO (22:57)
[2024-06-28] MEDS ORDERED: HOME MED LIST COMPLETE! XX SCH (23:00)
[2024-06-28] MEDS ORDERED: MOM 30ML SUSPENSION UDC PO PRN (23:05)
[2024-06-28] MEDS ORDERED: BISACODYL 10MG SUPP PR PRN (23:05)
[2024-06-28] MEDS: IPRATROPIUM 0.5MG/ALBUTEROL 2.5MG INH SOL UD 3ML (DUONEB) NEB SCH (23:37)
[2024-06-28] MEDS: DULoxetine 30MG CAPSULE (CYMBALTA) PO SCH (23:38)
[2024-06-28] MEDS: PREGABALIN 100 MG CAP (LYRICA) PO SCH (23:38)
[2024-06-28] MEDS: ENOXAPARIN 40MG/0.4ML SYRINGE (J1650 PER 10MG) SC SCH (23:40)
[2024-06-29] VITALS: BP 109/55; TEMP 97; O2SAT 96
[2024-06-29] MEDS: PANTOPRAZOLE 40MG TAB (PROTONIX) PO SCH (01:18)
[2024-06-29] MEDS: PIPERACILLIN/TAZOBACTAM SOD 4.5 GM in D5W MINI-BAG PLUS 50 ML IV SCH (01:18)
[2024-06-29] MEDS: rOPINIRole 1MG TAB PO SCH (01:19)
[2024-06-29] MEDS: oxyCODONE 5MG TAB PO PRN (01:36)
[2024-06-29 04:00] VITALS: BP 118/56; TEMP 97.3; O2SAT 98
[2024-06-29 05:23] LABS: HEMATOCRIT 29.8 % (36.0-47.0); HEMOGLOBIN 9.2 g/dl (12.0-15.5); MEAN CORPUSCULAR HEMOGLOBIN 27.3 pg (27.0-33.0); MEAN CORPUSCULAR HGB CONC 30.9 g/dl (32.0-36.5); MEAN CORPUSCULAR VOLUME 88.4 fl (80.0-96.0); PLATELET COUNT, AUTOMATED 228 10^3/uL (150-450); RED BLOOD COUNT 3.37 10^6/uL (4.00-5.40); WHITE BLOOD COUNT 18.3 10^3/uL (4.0-10.0)
[2024-06-29 05:50] LABS: PROCALCITONIN 7.54 ng/ml
[2024-06-29 05:56] LABS: ALBUMIN 2.4 G/DL (3.2-5.2); ALKALINE PHOSPHATASE 95 U/L (46-116); ALT/SGPT 22 U/L (7.0-40); AST/SGOT 35 U/L (<34); BILIRUBIN,TOTAL 0.3 MG/DL (0.3-1.2); BLOOD UREA NITROGEN 38 MG/DL (9-23); CALCIUM LEVEL 8.5 MG/DL (8.3-10.6); CARBON DIOXIDE LEVEL 26 MMOL/L (20-31); CHLORIDE LEVEL 107 MMOL/L (98-107); CREATININE FOR GFR 0.87 MG/DL (0.55-1.30); GLOMERULAR FILTRATION RATE > 60.0 (>39); GLUCOSE, FASTING 331 MG/DL (74-106); MAGNESIUM LEVEL 1.9 MG/DL (1.8-2.4); POTASSIUM SERUM 3.8 MMOL/L (3.5-5.1); SODIUM LEVEL 137 MMOL/L (136-145); TOTAL PROTEIN 6.6 G/DL (5.7-8.2)
[2024-06-29 07:38] VITALS: BP 133/80; TEMP 97; O2SAT 97
[2024-06-29] MEDS ORDERED: IPRATROPIUM 0.5MG/ALBUTEROL 2.5MG INH SOL UD 3ML (DUONEB) NEB PRN (08:05)
[2024-06-29 08:49] LABS: BASO % 0.1 % (0.0-1.0); LYMPH # 0.9 10^3/uL (1.5-5.0); MONO # 0.2 10^3/uL (0.0-0.8); NEUTROPHILS # 17.6 10^3/uL (1.5-8.5); NEUTROPHILS % 93.5 % (36.0-66.0)
[2024-06-29] MEDS: ASCORBIC ACID 500 MG TAB PO SCH (09:00)
[2024-06-29] MEDS ORDERED: PANTOPRAZOLE 40MG TAB (PROTONIX) PO SCH (09:00)
[2024-06-29] MEDS: EZETIMIBE 10MG TABLET (ZETIA) PO SCH (09:02)
[2024-06-29] MEDS: FERROUS SULFATE 325MG TAB PO SCH (09:03)
[2024-06-29] MEDS: CETIRIZINE (ZyrTEC) 10 MG TAB PO SCH (09:03)
[2024-06-29] MEDS: METOPROLOL SUCC *XL* 25MG TAB (TopROL *XL*) PO SCH (09:04)
[2024-06-29] MEDS: PREGABALIN 50 MG CAP (LYRICA) PO SCH (09:05)
[2024-06-29] MEDS: INSULIN LISPRO (NovoLOG) PER UNIT SC SCH (09:05)
[2024-06-29] MEDS: ASPIRIN 81MG ENTERIC TABLET PO SCH (09:05)
[2024-06-29 12:22] VITALS: BP 100/56; TEMP 97.5; O2SAT 100
[2024-06-29 15:44] VITALS: BP 94/61; TEMP 96.9; O2SAT 97
[2024-06-29 20:24] VITALS: BP 145/69; TEMP 97.3; O2SAT 98
[2024-06-29] MEDS: ATORVASTATIN 20 MG TAB PO SCH (20:39)
[2024-06-29] MEDS: ACETAMINOPHEN TAB 650MG DOSE (2X325MG) PO PRN (22:41)
[2024-06-30 00:06] VITALS: BP 119/61; TEMP 97.2; O2SAT 94
[2024-06-30 04:41] VITALS: BP 147/68; TEMP 97.1; O2SAT 96
[2024-06-30 05:05] LABS: BASO % 0.1 % (0.0-1.0); EOS % 0.1 % (0.0-3.0); HEMATOCRIT 27.4 % (36.0-47.0); HEMOGLOBIN 8.5 g/dl (12.0-15.5); LYMPH # 1.9 10^3/uL (1.5-5.0); LYMPH % 11.5 % (24.0-44.0); MEAN CORPUSCULAR HEMOGLOBIN 27.2 pg (27.0-33.0); MEAN CORPUSCULAR VOLUME 87.5 fl (80.0-96.0); MONO # 0.6 10^3/uL (0.0-0.8); MONO % 3.9 % (2.0-8.0); NEUTROPHILS # 13.6 10^3/uL (1.5-8.5); NEUTROPHILS % 83.8 % (36.0-66.0); PLATELET COUNT, AUTOMATED 231 10^3/uL (150-450); RED BLOOD COUNT 3.13 10^6/uL (4.00-5.40); WHITE BLOOD COUNT 16.2 10^3/uL (4.0-10.0)
[2024-06-30 05:27] LABS: ALBUMIN 2.3 G/DL (3.2-5.2); ALKALINE PHOSPHATASE 81 U/L (46-116); ALT/SGPT 23 U/L (7.0-40); AST/SGOT 35 U/L (<34); BILIRUBIN,TOTAL 0.2 MG/DL (0.3-1.2); BLOOD UREA NITROGEN 43 MG/DL (9-23); CALCIUM LEVEL 8.7 MG/DL (8.3-10.6); CARBON DIOXIDE LEVEL 27 MMOL/L (20-31); CHLORIDE LEVEL 112 MMOL/L (98-107); CREATININE FOR GFR 0.94 MG/DL (0.55-1.30); GLOMERULAR FILTRATION RATE > 60.0 (>39); GLUCOSE, FASTING 192 MG/DL (74-106); POTASSIUM SERUM 3.9 MMOL/L (3.5-5.1); SODIUM LEVEL 141 MMOL/L (136-145); TOTAL PROTEIN 6.5 G/DL (5.7-8.2)
[2024-06-30 08:20] VITALS: BP 118/84; TEMP 97.1; O2SAT 98
[2024-06-30] MEDS ORDERED: BISACODYL 10MG SUPP PR PRN (09:45)
[2024-06-30] MEDS: SENOKOT S TAB PO SCH (10:09)
[2024-06-30] MEDS: NYSTATIN 100,000 UNITS/GM TOPICAL PWD 15GM TOP PRN (10:10)
[2024-06-30] MEDS: cefTRIAXone SOD 1 GM in D5W MINI-BAG PLUS 50 ML IV SCH (11:57)
[2024-06-30 12:01] VITALS: BP 156/78; TEMP 97.6; O2SAT 100
[2024-06-30 20:00] VITALS: BP 135/80; TEMP 96.6; O2SAT 95
[2024-06-30] MEDS: MIRALAX *UNIT DOSE* 17GM PACKET PO PRN (20:15)
[2024-07-01 04:32] VITALS: BP 132/80; TEMP 98.1; O2SAT 98
[2024-07-01 06:59] LABS: BASO % 0.4 % (0.0-1.0); EOS # 0.1 10^3/uL (0.0-0.5); EOS % 1.5 % (0.0-3.0); HEMATOCRIT 28.4 % (36.0-47.0); HEMOGLOBIN 8.7 g/dl (12.0-15.5); LYMPH # 2.5 10^3/uL (1.5-5.0); LYMPH % 27.3 % (24.0-44.0); MEAN CORPUSCULAR HEMOGLOBIN 26.7 pg (27.0-33.0); MEAN CORPUSCULAR HGB CONC 30.6 g/dl (32.0-36.5); MEAN CORPUSCULAR VOLUME 87.1 fl (80.0-96.0); MONO # 0.5 10^3/uL (0.0-0.8); MONO % 5.4 % (2.0-8.0); NEUTROPHILS # 5.9 10^3/uL (1.5-8.5); NEUTROPHILS % 65.3 % (36.0-66.0); PLATELET COUNT, AUTOMATED 242 10^3/uL (150-450); RED BLOOD COUNT 3.26 10^6/uL (4.00-5.40)
[2024-07-01 07:20] LABS: ALBUMIN 2.3 G/DL (3.2-5.2); ALKALINE PHOSPHATASE 84 U/L (46-116); ALT/SGPT 39 U/L (7.0-40); AST/SGOT 37 U/L (<34); BILIRUBIN,TOTAL 0.2 MG/DL (0.3-1.2); BLOOD UREA NITROGEN 33 MG/DL (9-23); CALCIUM LEVEL 8.2 MG/DL (8.3-10.6); CARBON DIOXIDE LEVEL 27 MMOL/L (20-31); CHLORIDE LEVEL 109 MMOL/L (98-107); CREATININE FOR GFR 0.92 MG/DL (0.55-1.30); GLOMERULAR FILTRATION RATE > 60.0 (>39); GLUCOSE, FASTING 122 MG/DL (74-106); MAGNESIUM LEVEL 1.8 MG/DL (1.8-2.4); SODIUM LEVEL 142 MMOL/L (136-145); TOTAL PROTEIN 6.4 G/DL (5.7-8.2)
[2024-07-01 08:45] VITALS: BP 142/86; TEMP 97.9; O2SAT 98
[2024-07-01] MEDS ORDERED: LEVO1TAB40 PO (08:56)
[2024-07-01] MEDS ORDERED: NITR-67 PO (09:16)
[2024-07-01 09:21] VITALS: BP 142/86
[2024-07-01] MEDS: MOM 30ML SUSPENSION UDC PO PRN (09:21)
[2024-07-01] MEDS: FLUBLOK(EGGFREE) TRIVAL(24-25) VACCINE PF 0.5ML SYRINGE 18YRS & OLDER IM.IMMUN ONE (10:20)
[2024-07-01] MEDS ORDERED: BISA10SU27 PR (10:45)
[2024-07-01] MEDS ORDERED: MOM30SS2 PO (10:45)
[2024-07-01] MEDS ORDERED: SENN-52 PO (10:45)
== END 2024-07-01 11:21 | DRG 698 ==
LOC: M ED 15:49 → M ED INP 22:27 → M ICU 06-29 00:32 → M MSPAV 06-30 15:01
PROVIDERS: ADMIT Preventive Medicine Undersea and Hyperbaric Medicine; ATTEND Internal Medicine
DX: T83.511A Infection and inflammatory reaction due to indwelling urethral catheter, initial encounter (principal); A41.9 Sepsis, unspecified organism; R65.20 Severe sepsis without septic shock; I21.A1 Myocardial infarction type 2; L89.154 Pressure ulcer of sacral region, stage 4; I50.32 Chronic diastolic (congestive) heart failure; I44.2 Atrioventricular block, complete; E87.20 Acidosis, unspecified; E44.0 Moderate protein-calorie malnutrition; S22.41XA Multiple fractures of ribs, right side, initial encounter for closed fracture; N39.3 Stress incontinence (female) (male); Y84.6 Urinary catheterization as the cause of abnormal reaction of the patient, or of later complication, without mention of misadventure at the time of the procedure; I11.0 Hypertensive heart disease with heart failure; I25.2 Old myocardial infarction; E11.65 Type 2 diabetes mellitus with hyperglycemia; Z66 Do not resuscitate; K56.41 Fecal impaction; K21.9 Gastro-esophageal reflux disease without esophagitis; J44.9 Chronic obstructive pulmonary disease, unspecified; F39 Unspecified mood [affective] disorder; E78.5 Hyperlipidemia, unspecified; G25.81 Restless legs syndrome; D50.9 Iron deficiency anemia, unspecified; F17.200 Nicotine dependence, unspecified, uncomplicated; G89.29 Other chronic pain; M81.0 Age-related osteoporosis without current pathological fracture; M54.9 Dorsalgia, unspecified; Z95.5 Presence of coronary angioplasty implant and graft; Z96.643 Presence of artificial hip joint, bilateral; Z98.41 Cataract extraction status, right eye; Z96.1 Presence of intraocular lens; Z95.0 Presence of cardiac pacemaker; Z79.899 Other long term (current) drug therapy; Z86.73 Personal history of transient ischemic attack (TIA), and cerebral infarction without residual deficits; W19.XXXA Unspecified fall, initial encounter; Y93.9 Activity, unspecified; Y99.8 Other external cause status; Y92.129 Unspecified place in nursing home as the place of occurrence of the external cause

== ENCOUNTER → 2024-06-28 | Outpatient (REF) | payer MEDICARE, MEDICAID ==
[~2024-06-28] MED LIST changes: +CETI-25 PO; +DOXY100T PO; +ENSU-12 PO; +FERR1TAB8 PO; +HYDR28OI7 TP; +IPRA0.00 NEB; +JUVE1POW PO; +LEVO1TAB40 PO; +MOM30SS2 PO; +NITR-67 PO; +OXYC-517 PO; +SENN-52 PO; +VITA-158 PO
== END ==
LOC: SKLAB3 09:43
PROVIDERS: ATTEND Internal Medicine
DX: R30.0 Dysuria (principal)

== ENCOUNTER → 2024-06-28 | Outpatient (REF) | payer MEDICARE, MEDICAID ==
[2024-06-28 08:28] LABS: BASO % 0.3 % (0.0-1.0); EOS # 0.1 10^3/uL (0.0-0.5); EOS % 0.4 % (0.0-3.0); HEMATOCRIT 31.7 % (36.0-47.0); HEMOGLOBIN 9.9 g/dl (12.0-15.5); LYMPH # 2.3 10^3/uL (1.5-5.0); LYMPH % 16.5 % (24.0-44.0); MEAN CORPUSCULAR HEMOGLOBIN 27.3 pg (27.0-33.0); MEAN CORPUSCULAR HGB CONC 31.2 g/dl (32.0-36.5); MEAN CORPUSCULAR VOLUME 87.6 fl (80.0-96.0); MONO # 0.7 10^3/uL (0.0-0.8); MONO % 5.1 % (2.0-8.0); NEUTROPHILS # 10.5 10^3/uL (1.5-8.5); NEUTROPHILS % 77.3 % (36.0-66.0); PLATELET COUNT, AUTOMATED 261 10^3/uL (150-450); RED BLOOD COUNT 3.62 10^6/uL (4.00-5.40); WHITE BLOOD COUNT 13.6 10^3/uL (4.0-10.0)
[2024-06-28 08:54] LABS: ALBUMIN 2.6 G/DL (3.2-5.2); BILIRUBIN,TOTAL 0.5 MG/DL (0.3-1.2); CALCIUM LEVEL 8.9 MG/DL (8.3-10.6); CREATININE FOR GFR 1.09 MG/DL (0.55-1.30); GLOMERULAR FILTRATION RATE 51.5 (>39); POTASSIUM SERUM 4.4 MMOL/L (3.5-5.1); TOTAL PROTEIN 6.7 G/DL (5.7-8.2)
== END ==
LOC: SKLAB3 07:02
PROVIDERS: ATTEND Internal Medicine
DX: R09.02 Hypoxemia (principal); Z95.0 Presence of cardiac pacemaker

== ENCOUNTER → 2024-07-15 | Outpatient (CLI) | payer MEDICARE, MEDICAID ==
[~2024-07-15] MED LIST changes: +CETI-25 PO; +DOXY100T PO; +ENSU-12 PO; +FERR1TAB8 PO; +GABA-1172 PO; -GABA-282 PO; +HYDR28OI7 TP; +IPRA0.00 NEB; +JUVE1POW PO; +LEVO1TAB40 PO; +MOM30SS2 PO; +NITR-67 PO; +OXYC-517 PO; +SENN-52 PO; +VITA-158 PO
== END ==
LOC: M RAD 13:44
PROVIDERS: ATTEND Nurse Practitioner Family
DX: M25.522 Pain in left elbow (principal); D16.9 Benign neoplasm of bone and articular cartilage, unspecified

== ENCOUNTER → 2024-08-05 | Outpatient (CLI) | payer MEDICARE, MEDICAID | LOC: M WHC 10:36 | PROVIDERS: ATTEND Nurse Practitioner Family | DX: M85.831 Other specified disorders of bone density and structure, right forearm (principal); Z13.820 Encounter for screening for osteoporosis ==

== ENCOUNTER → 2024-09-24 | Outpatient (REF) | payer MEDICARE, MEDICAID ==
[~2024-09-24] MED LIST changes: -CYCL5TAB PO; +CYCL5TAB4 PO
[2024-09-24 11:18] LABS: HEMOGLOBIN A1c 6.6 % (4.0-6.0)
== END ==
LOC: SKLAB3 07:00
PROVIDERS: ATTEND Internal Medicine
DX: E11.9 Type 2 diabetes mellitus without complications (principal)

== ENCOUNTER → 2024-10-17 | Outpatient (REF) | payer MEDICARE, MEDICAID | LOC: SKLAB3 11:34 | PROVIDERS: ATTEND Internal Medicine | DX: R05.9 Cough, unspecified (principal) ==

== ENCOUNTER → 2024-11-11 | Outpatient (REF) | payer MEDICARE, MEDICAID, OTHER ==
[2024-11-11 10:27] LABS: HEMATOCRIT 29.7 % (36.0-47.0); HEMOGLOBIN 8.9 g/dl (12.0-15.5); MEAN CORPUSCULAR HEMOGLOBIN 26.8 pg (27.0-33.0); MEAN CORPUSCULAR VOLUME 89.5 fl (80.0-96.0); PLATELET COUNT, AUTOMATED 200 10^3/uL (150-450); RED BLOOD COUNT 3.32 10^6/uL (4.00-5.40); WHITE BLOOD COUNT 11.2 10^3/uL (4.0-10.0)
[2024-11-11 10:50] LABS: HEMOGLOBIN A1c 6.9 % (4.0-6.0)
[2024-11-11 11:02] LABS: ALBUMIN 2.8 G/DL (3.2-5.2); BILIRUBIN,TOTAL 0.6 MG/DL (0.3-1.2); CALCIUM LEVEL 8.6 MG/DL (8.3-10.6); CHOLESTEROL RISK RATIO 2.24 (<5); CREATININE FOR GFR 0.97 MG/DL (0.55-1.30); LDL CHOLESTEROL 45.8 MG/DL (<100); POTASSIUM SERUM 4.7 MMOL/L (3.5-5.1); TOTAL PROTEIN 6.9 G/DL (5.7-8.2)
== END ==
LOC: SKLAB3 07:38
PROVIDERS: ATTEND Internal Medicine
DX: E78.5 Hyperlipidemia, unspecified (principal); E11.9 Type 2 diabetes mellitus without complications; I10 Essential (primary) hypertension

== ENCOUNTER → 2024-11-11 | Outpatient (REF) | payer MEDICARE, MEDICAID, OTHER | LOC: SKLAB3 12:33 | PROVIDERS: ATTEND Internal Medicine | DX: R05.9 Cough, unspecified (principal); E78.5 Hyperlipidemia, unspecified; E11.9 Type 2 diabetes mellitus without complications; I10 Essential (primary) hypertension ==

== ENCOUNTER → 2024-11-14 | Outpatient (REF) | payer MEDICARE, MEDICAID, OTHER | LOC: M SFHCWOUN 17:33 | PROVIDERS: ATTEND Surgery | DX: C44.629 Squamous cell carcinoma of skin of left upper limb, including shoulder (principal) ==

== ENCOUNTER 2024-11-15 23:08 | Emergency (ER) | payer MEDICARE, MEDICAID ==
[~2024-11-15] VITALS: Ht 152.4 cm; Wt 77.7 kg
[2024-11-16] MEDS: ACETAMINOPHEN 325 MG TAB PO ONE (01:10)
[2024-11-16 03:23] VITALS: O2SAT 93
[2024-11-16 04:00] VITALS: BP 110/56
== END 2024-11-16 04:34 | disposition home or self-care (01) ==
LOC: M ED 23:08
DX: M25.551 Pain in right hip (principal); E11.9 Type 2 diabetes mellitus without complications; Z79.1 Long term (current) use of non-steroidal anti-inflammatories (NSAID); Z79.51 Long term (current) use of inhaled steroids; Z79.4 Long term (current) use of insulin; Z79.810 Long term (current) use of selective estrogen receptor modulators (SERMs); Z79.899 Other long term (current) drug therapy

== ENCOUNTER → 2024-11-19 | Outpatient (REF) | payer MEDICARE, MEDICAID ==
[2024-11-19 17:25] LABS: HEMATOCRIT 29.7 % (36.0-47.0); HEMOGLOBIN 8.8 g/dl (12.0-15.5); MEAN CORPUSCULAR HEMOGLOBIN 27.2 pg (27.0-33.0); MEAN CORPUSCULAR HGB CONC 29.6 g/dl (32.0-36.5); MEAN CORPUSCULAR VOLUME 91.7 fl (80.0-96.0); PLATELET COUNT, AUTOMATED 397 10^3/uL (150-450); RED BLOOD COUNT 3.24 10^6/uL (4.00-5.40); WHITE BLOOD COUNT 8.2 10^3/uL (4.0-10.0)
[2024-11-19 18:17] LABS: BLOOD UREA NITROGEN 33 MG/DL (9-23); CALCIUM LEVEL 8.7 MG/DL (8.3-10.6); CARBON DIOXIDE LEVEL 29 MMOL/L (20-31); CHLORIDE LEVEL 102 MMOL/L (98-107); CREATININE FOR GFR 0.93 MG/DL (0.55-1.30); GLOMERULAR FILTRATION RATE > 60.0 (>39); GLUCOSE, FASTING 171 MG/DL (74-106); POTASSIUM SERUM 5.1 MMOL/L (3.5-5.1); SODIUM LEVEL 141 MMOL/L (136-145)
== END ==
LOC: SKLAB3 15:39
PROVIDERS: ATTEND Internal Medicine
DX: R11.2 Nausea with vomiting, unspecified (principal); M53.80 Other specified dorsopathies, site unspecified; Z96.643 Presence of artificial hip joint, bilateral

== ENCOUNTER → 2024-12-06 | Outpatient (REF) | payer MEDICARE, MEDICAID, OTHER | LOC: SKLAB3 07:00 | PROVIDERS: ATTEND Internal Medicine | DX: D64.9 Anemia, unspecified (principal) ==

== ENCOUNTER → 2025-01-02 | Outpatient (REF) | payer MEDICARE, MEDICAID, OTHER | LOC: SKLAB3 14:06 | PROVIDERS: ATTEND Internal Medicine | DX: N94.89 Other specified conditions associated with female genital organs and menstrual cycle (principal) ==

== ENCOUNTER → 2025-01-09 | Outpatient (CLI) | payer MEDICARE, MEDICAID | LOC: M WHC 09:07 | PROVIDERS: ATTEND Nurse Practitioner | DX: R92.313 Mammographic fatty tissue density, bilateral breasts (principal); N60.82 Other benign mammary dysplasias of left breast | CPT/HCPCS: 76642; 77066; G0279 ==

== ENCOUNTER → 2025-02-07 | Outpatient (CLI) | payer MEDICARE ==
[~2025-02-07] MED LIST changes: -GLUC1KIT IM; +GLUC1VIA14 IM; -PREG50CA PO; +PREG50CA87 PO
== END ==
LOC: M RAD 10:52
PROVIDERS: ATTEND Nurse Practitioner
DX: M54.2 Cervicalgia (principal); R51.9 Headache, unspecified; Z98.1 Arthrodesis status; M47.812 Spondylosis without myelopathy or radiculopathy, cervical region; Z86.73 Personal history of transient ischemic attack (TIA), and cerebral infarction without residual deficits

== ENCOUNTER → 2025-06-03 | Outpatient (REF) | payer MEDICARE ==
[~2025-06-03] MED LIST changes: +LIDO1ADH93 TD; -LIDO5DIS41 TD
[2025-06-03 09:44] LABS: PLATELET COUNT, AUTOMATED 189 10^3/uL (150-450)
[2025-06-03 10:02] LABS: ESTIMATED AVERAGE GLUCOSE 180.0 MG/DL (60-110)
[2025-06-03 10:14] LABS: CALCIUM LEVEL 9.4 MG/DL (8.3-10.6); CARBON DIOXIDE LEVEL 32.0 MMOL/L (20-31); CHLORIDE LEVEL 101.0 MMOL/L (98-107); CREATININE FOR GFR 0.84 MG/DL (0.55-1.30); GLOMERULAR FILTRATION RATE 70.2 (>32); POTASSIUM SERUM 4.4 MMOL/L (3.5-5.1); SODIUM LEVEL 141.0 MMOL/L (136-145)
== END ==
LOC: SKLAB3 07:00
PROVIDERS: ATTEND Internal Medicine
DX: I10 Essential (primary) hypertension (principal); E11.9 Type 2 diabetes mellitus without complications

== ENCOUNTER → 2025-06-05 | Outpatient (REF) | payer MEDICARE ==
[2025-06-05 10:10] LABS: IRON (FE) 198.0 UG/DL (50-170); PERCENT SATURATION 57.4 % (13.2-45.0)
== END ==
LOC: SKLAB3 07:00
PROVIDERS: ATTEND Internal Medicine
DX: D64.9 Anemia, unspecified (principal)

== ENCOUNTER → 2025-06-17 | Outpatient (CLI) | payer MEDICARE ==
[~2025-06-17] MED LIST changes: -EZET10TA21 PO; +EZET10TA57 PO
== END ==
LOC: M RAD 11:48
PROVIDERS: ATTEND Nurse Practitioner
DX: H61.20 Impacted cerumen, unspecified ear (principal)

== ENCOUNTER → 2025-07-17 | Outpatient (CLI) | payer MEDICARE ==
[~2025-07-17] MED LIST changes: +BACL10TA2 PO; +BACL5TAB2 PO; +CALC600T60 PO; +ERGO125013 PO; +LACT20EL PO; +MELA3TAB30 PO; +METF-839 PO; +METO1TAB7 PO; +NYST1POW3 TOP; +OXYB-54 PO; +REFR0.5D8 OU
== END ==
LOC: M RAD 10:05
PROVIDERS: ATTEND Nurse Practitioner Family
DX: M54.2 Cervicalgia (principal); Z98.1 Arthrodesis status; T84.296A Other mechanical complication of internal fixation device of vertebrae, initial encounter; Y83.1 Surgical operation with implant of artificial internal device as the cause of abnormal reaction of the patient, or of later complication, without mention of misadventure at the time of the procedure

== ENCOUNTER 2025-07-22 10:46 | Emergency (ER) | payer MEDICARE ==
[~2025-07-22] VITALS: Ht 152.4 cm; Wt 96.7 kg
[~2025-07-22 10:46] MED LIST changes: -BACL10TA2 PO; -BACL5TAB2 PO; -CALC600T60 PO; -ERGO125013 PO; -LACT20EL PO; -MELA3TAB30 PO; -METF-839 PO; -METO1TAB7 PO; -NYST1POW3 TOP; -OXYB-54 PO; -REFR0.5D8 OU
[2025-07-22] MEDS ORDERED: REFR0.5D8 OU (11:48)
[2025-07-22] MEDS ORDERED: OXYC-517 PO (11:48)
[2025-07-22] MEDS ORDERED: CALC600T60 PO (11:48)
[2025-07-22] MEDS ORDERED: MELA3TAB30 PO (11:48)
[2025-07-22] MEDS ORDERED: BACL10TA2 PO (11:48)
[2025-07-22] MEDS ORDERED: OXYB-54 PO (11:48)
[2025-07-22] MEDS ORDERED: METO1TAB7 PO (11:48)
[2025-07-22] MEDS ORDERED: METF-839 PO (11:48)
[2025-07-22] MEDS ORDERED: ERGO125013 PO (11:48)
[2025-07-22] MEDS ORDERED: NYST1POW3 TOP (11:48)
[2025-07-22] MEDS ORDERED: BACL5TAB2 PO (11:48)
[2025-07-22] MEDS ORDERED: LACT20EL PO (11:48)
[2025-07-22] MEDS ORDERED: SENN1TAB85 PO (11:49)
[2025-07-22] MEDS ORDERED: ONDA-83 PO (12:04)
[2025-07-22] MEDS ORDERED: HOME MED LIST COMPLETE! XX SCH (12:05)
[2025-07-22 14:27] VITALS: BP 153/73; TEMP 98.5; O2SAT 96
== END 2025-07-22 14:33 | disposition short-term general hospital (02) ==
LOC: M ED 10:46 → EDBD 10:46 → M ED 14:33
DX: T84.216A Breakdown (mechanical) of internal fixation device of vertebrae, initial encounter (principal); M43.21 Fusion of spine, occipito-atlanto-axial region; I50.22 Chronic systolic (congestive) heart failure; E11.9 Type 2 diabetes mellitus without complications; I11.0 Hypertensive heart disease with heart failure; E78.5 Hyperlipidemia, unspecified; J44.9 Chronic obstructive pulmonary disease, unspecified; Z79.1 Long term (current) use of non-steroidal anti-inflammatories (NSAID); Z79.2 Long term (current) use of antibiotics; Z79.84 Long term (current) use of oral hypoglycemic drugs; Z79.899 Other long term (current) drug therapy

== ENCOUNTER → 2025-08-20 | Outpatient (CLI) | payer MEDICARE ==
[~2025-08-20] MED LIST changes: +BACL10TA2 PO; +BACL5TAB2 PO; +CALC600T60 PO; +ERGO125013 PO; +LACT20EL PO; +MELA3TAB30 PO; +METF-839 PO; +METO1TAB7 PO; +NYST1POW3 TOP; +OXYB-54 PO; +REFR0.5D8 OU
== END ==
LOC: M WHC 13:17
PROVIDERS: ATTEND Nurse Practitioner
DX: N60.02 Solitary cyst of left breast (principal)

== ENCOUNTER → 2025-09-03 | Outpatient (REF) | payer MEDICARE ==
[~2025-09-03] MED LIST changes: +HYDR28OI10 TP; -HYDR28OI7 TP
[2025-09-03 08:39] LABS: PLATELET COUNT, AUTOMATED 211 10^3/uL (150-450)
[2025-09-03 09:10] LABS: CALCIUM LEVEL 8.8 MG/DL (8.3-10.6); CARBON DIOXIDE LEVEL 29.0 MMOL/L (20-31); CHLORIDE LEVEL 103.0 MMOL/L (98-107); CREATININE FOR GFR 0.93 MG/DL (0.55-1.30); GLOMERULAR FILTRATION RATE 62.1 (>32); POTASSIUM SERUM 4.4 MMOL/L (3.5-5.1); SODIUM LEVEL 142.0 MMOL/L (136-145)
[2025-09-03 09:19] LABS: ESTIMATED AVERAGE GLUCOSE 169.0 MG/DL (60-110)
== END ==
LOC: SKLAB3 07:00
PROVIDERS: ATTEND Family Medicine
DX: I10 Essential (primary) hypertension (principal); E11.9 Type 2 diabetes mellitus without complications